=== PATIENT | male | born 1955 | race Hispanic/Latino ===

== ENCOUNTER 2018-01-16 17:30 | Inpatient (IN) | payer MEDICARE ==
[2018-01-16 18:39] LABS: BASO % 0.1 % (0.0-2.0); EOS # 0.1 K/uL (0.0-0.7); EOS % 0.8 % (0.0-4.0); HEMOGLOBIN 11.9 g/dL (12.0-18.0); LYMPH % 8.5 % (20.0-40.0); MEAN CELL VOLUME 94.7 fL (80.0-94.0); MEAN CORPUSCULAR HEMOGLOBIN 31.7 pg (27.0-31.0); MEAN CORPUSCULAR HGB CONC 33.5 g/dL (33.0-37.0); MEAN PLATELET VOLUME 9.4 fL (7.2-11.7); MONO # 1.4 K/uL (0.0-0.8); MONO % 11.5 % (0.0-10.0); NEUT # 9.7 K/uL (1.8-7.0); NEUT % 79.1 % (50.0-75.0); PLATELET COUNT 252 K/uL (130-400); RBC 3.77 Mil/uL (4.40-5.90); RED CELL DISTRIBUTION WIDTH 15.1 % (11.5-14.5); WHITE BLOOD COUNT 12.2 K/uL (4.8-10.8)
[2018-01-16 19:01] LABS: ANISOCYTOSIS SLIGHT; BANDS 4 % (0-2); LARGE PLATELETS PRESENT; LYMPHOCYTE 7 % (20-40); MONOCYTE 10 % (0-10); NEUTROPHIL 79 % (50-75); PLATELET ESTIMATE NORMAL (NORMAL); TOTAL CELLS COUNTED 100
[2018-01-16 19:07] LABS: ALB/GLOB RATIO 1.2 (1.0-2.1); ALBUMIN 3.3 g/dL (3.5-5.0); ALT/SGPT 28 U/L (21-72); AST/SGOT 21 U/L (17-59); BLOOD UREA NITROGEN 17 mg/dL (9-20); CALCIUM 9.3 mg/dl (8.6-10.4); GFR NON-AFRICAN AMERICAN > 60
--- NOTE | 2018-01-16 19:18 | C.PDOC ---
History Of Present Illness 62 year old male w/ hx of recent ex lap, "paranoia" per , poor historian presents BIB EMS after having a seizure at Dr. Avalos's office. Pt was seen yesterday in ER- and had negative w/u for abdominal pain at that time. He denies any abdominal pain at this time and states that he is here for his normal pain meds, although he is not in pain. He notes a history of drinking 2 beers a day, and denies any history of seizures. He notes that he is not sure whether or not he had a seizure today.He denies any trauma or falls. He denies taking any drugs or overdosing. No anxiety or depression. No other complaints. Time Seen by Provider: 01/16/18 19:06 Chief Complaint (Nursing): Seizure Past Medical History Vital Signs: Last Vital Signs Temp 98.2 F 01/17/18 15:00 Pulse 88 01/17/18 15:00 Resp 20 01/17/18 15:00 BP 132/74 01/17/18 15:00 Pulse Ox 97 01/17/18 15:00 Family History: States: Unknown Family Hx - Social History Hx Alcohol Use: Yes Hx Substance Use: No Review Of Systems Constitutional: Negative for: Fever Eyes: Negative for: Pain ENT: Negative for: Ear Pain Cardiovascular: Negative for: Chest Pain Respiratory: Negative for: Cough Gastrointestinal: Negative for: Nausea, Abdominal Pain Genitourinary: Negative for: Dysuria Musculoskeletal: Negative for: Neck Pain, Shoulder Pain, Back Pain, Hand Pain, Leg Pain Neurological: Negative for: Weakness, Numbness Psych: Negative for: Depression, Suicidal ideation Physical Exam - Physical Exam Appears: Unkempt Skin: Normal Color Head: Atraumatic, Normacephalic, No Tenderness, No Swelling, No Abrasion, No Laceration Ear(s): Bilateral: Normal Nose: Normal, No Septal Hematoma Tongue: Normal Appearing Neck: Normal, No Midline Cervical Tenderness Chest: Symmetrical Cardiovascular: Other (tachy, regular) Respiratory: Normal Breath Sounds Gastrointestinal/Abdominal: Normal Exam, No Tenderness Extremity: Normal ROM Neurological/Psych: Oriented x3, Normal Speech, No Cerebellar Signs (tremulous hands on my exam) ED Course And Treatment - Laboratory Results Result Diagrams: 01/17/18 02:57 01/17/18 02:57 O2 Sat by Pulse Oximetry: 97 Medical Decision Making Medical Decision Makin yr old male w/ recent exlap, poor historian, etoh use presents s/p seizure from Dr. Avalos (pain management) office. Given hx of etoh use likely etoh withdrawal seizure. Pt does not know his PMD however. Will seek labs and imaging to r/ out trauma and give ativan for further prevention of seizures. Appreciate consult w/ Dr. Avalos: was seen in office having a 5 min seizure which self resolved. Appreciate consult w/ Dr. Bailey: to admit to her service. Ct's unremarkable labs largely unremarkable Disposition - Disposition Disposition: HOSPITALIZED Disposition Time: 22:00 Condition: GOOD - Clinical Impression Clinical Impression: Seizure
--- NOTE | 2018-01-17 00:14 | CP.PCM.PN ---
Subjective - Date & Time of Evaluation Date of Evaluation: 01/16/18 Time of Evaluation: 23:00 - Subjective Subjective: Patient was seen and examined at bedside. H&P dictated #[id number] Objective - Vital Signs/Intake and Output Vital Signs (last 24 hours): Temp Pulse Resp BP Pulse Ox 98.4 F 77 20 147/82 98 01/16/18 22:49 01/16/18 22:49 01/16/18 22:49 01/16/18 22:49 01/16/18 22:49 - Labs Labs: 01/16/18 18:36 01/16/18 18:36
[2018-01-17] MEDS ORDERED: Thiamine 100 mg/ml Inj IV ONE (01:11)
[2018-01-17 03:01] LABS: BASO % 0.2 % (0.0-2.0); EOS # 0.1 K/uL (0.0-0.7); EOS % 1.2 % (0.0-4.0); HEMOGLOBIN 11.3 g/dL (12.0-18.0); LYMPH # 1.4 K/uL (1.0-4.3); LYMPH % 12.5 % (20.0-40.0); MEAN CELL VOLUME 93.8 fL (80.0-94.0); MEAN CORPUSCULAR HEMOGLOBIN 32.5 pg (27.0-31.0); MEAN CORPUSCULAR HGB CONC 34.7 g/dL (33.0-37.0); MEAN PLATELET VOLUME 9.7 fL (7.2-11.7); MONO # 1.3 K/uL (0.0-0.8); MONO % 11.4 % (0.0-10.0); NEUT # 8.7 K/uL (1.8-7.0); NEUT % 74.7 % (50.0-75.0); RBC 3.48 Mil/uL (4.40-5.90); WHITE BLOOD COUNT 11.6 K/uL (4.8-10.8)
[2018-01-17 03:16] LABS: ALBUMIN 2.9 g/dL (3.5-5.0); ALT/SGPT 29 U/L (21-72); AST/SGOT 18 U/L (17-59); BLOOD UREA NITROGEN 15 mg/dL (9-20); CALCIUM 8.6 mg/dl (8.6-10.4); GFR NON-AFRICAN AMERICAN > 60; HDL CHOLESTEROL 19 mg/dL (30-70)
[2018-01-17 03:24] LABS: LDL CHOLESTEROL 48 mg/dL (0-129)
[2018-01-17 03:27] LABS: BARBITURATES, UR NEGATIVE (NEGATIVE); BENZODIAZEPINES, UR NEGATIVE (NEGATIVE); PHENCYCLIDINE, UR NEGATIVE (NEGATIVE)
[2018-01-17 03:28] LABS: OPIATES, UR POSITIVE (NEGATIVE)
[2018-01-17 04:18] LABS: FOLATE 13.3 ng/mL
--- NOTE | 2018-01-17 06:47 | CT ---
Date of service: 01/16/2018 PROCEDURE: CT HEAD WITHOUT CONTRAST. HISTORY: seizure COMPARISON: CT dated 01/15/2018 TECHNIQUE: Axial computed tomography images were obtained through the head/brain without intravenous contrast. Radiation dose: Total exam DLP = 1094 mGy-cm. This CT exam was performed using one or more of the following dose reduction techniques: Automated exposure control, adjustment of the mA and/or kV according to patient size, and/or use of iterative reconstruction technique. FINDINGS: HEMORRHAGE: No intracranial hemorrhage. BRAIN: Moderate atrophy. Scattered focal lucencies in the subcortical and periventricular white matter suggestive for chronic microvascular ischemic change. VENTRICLES: Unremarkable. No hydrocephalus. CALVARIUM: Deformity of the nasal bones, likely chronic. PARANASAL SINUSES: Scattered mild mucosal thickening. MASTOID AIR CELLS: Unremarkable as visualized. No inflammatory changes. OTHER FINDINGS: None. IMPRESSION: No intracranial hemorrhage. Nonspecific white matter changes. Additional findings as above. If symptoms persists, consider correlation with MRI. These findings were preliminarily reported by Dr. Jenna Torre from [facility] at 9:51 p.m. 01/16/2018.
--- NOTE | 2018-01-17 08:34 | HP ---
CHIEF COMPLAINT: The patient had witnessed seizure at primary's office, and the patient was sent to the emergency room. HISTORY OF PRESENT ILLNESS: The patient is a 62-year-old male with no significant family history as per the patient, who was evaluated by ED only yesterday, who underwent exploratory laparotomy for questionable resection of the abdomen and colon done at [facility] which was done about four days ago, came into the emergency room yesterday for abdominal pain, diarrhea, and decreased p.o. intake. The patient was evaluated on 01/15/2018 in the emergency room. The patient was evaluated by Surgery, and the patient was discharged home yesterday. The patient was also evaluated by crisis team. Today, the patient was at Dr. Avalos's office where the patient had a witnessed seizure, and the patient is being admitted for further evaluation, and when I examined, the patient is not able to give detailed history, claiming he was not sure why he was in the hospital, unable to give detailed history. PAST MEDICAL HISTORY: The patient denies past medical history. PAST SURGICAL HISTORY: Recent abdominal surgery. As per the chart, it was done three days ago at [facility]. We will try to contact the patient's family for further history. FAMILY HISTORY: Unknown at this time. PERSONAL HISTORY: He claims that he is , lives with his , having one daughter. SOCIAL HISTORY: Denies smoking. Claims he drinks two beers everyday, last drink was yesterday. ALLERGIES: NO KNOWN DRUG ALLERGIES. MEDICATIONS AT HOME: Include Xanax, Percocet, and oxycodone. REVIEW OF SYSTEMS: As described in history of present illness. All other systems reviewed and was found to be negative. PHYSICAL EXAMINATION: GENERAL: A middle-aged male, lying in bed, in no acute distress. VITAL SIGNS: Blood pressure 127/75, pulse 71, respirations 20, temperature 98.4 degrees Fahrenheit, O2 sat is 98% on room air. HEENT: Pupils equal, round, reacting to light and accommodation. Extraocular muscles intact. No icterus. No pallor. No oral thrush. No pharyngeal congestion. NECK: Supple. No JVD. LUNGS: Bilateral vesicular breath sounds. No wheezing. No rhonchi. CVS: S1, S2 present and regular. ABDOMEN: Soft. Bowel sounds present. There is mild erythema at the surgical site. Uziel in place. DIRECTOR [employer]CIAL [employer]: Alert, awake, oriented x2 to x3. No focal deficits noted. EXTREMITIES: No edema. Palpable peripheral pulses. LABORATORY DATA: Labs done from the emergency room: WBC 12.2, hemoglobin 11.9, hematocrit 35.7, platelets 252. Sodium 140, potassium 3, chloride 102, bicarb 22, BUN 17, creatinine 0.6, glucose 117, calcium 9.3, magnesium 2, total bilirubin 1.3, AST 21, ALT 28, alkaline phosphatase 72, total protein 6, albumin 3.3, alcohol less than 10. Head CT and cervical CT done pending results. Head CT done yesterday shows mild cerebral and cerebellar atrophy, mild small vessel ischemic changes, left parietal scalp laceration. Abdomen and pelvis CT consistent with postoperative changes from right hemicolectomy, gas and fluid in the small bowel and colon which may be secondary to adynamic ileus, small amount of free air in the abdomen which may be related to recent surgery. Urinary bladder wall thickening with mild surrounding inflammation concerning for cystitis. Air noted within the urinary bladder which may be related to recent catheterization. ASSESSMENT: Middle-aged male with history of recent abdominal surgery with right hemicolectomy, who was seen in the emergency room yesterday for abdominal pain, and the patient was evaluated by Surgery and cleared and also seen by crisis team, who was at Dr. Avalos's office, had witnessed seizure, and the patient was brought in to the emergency room, and the patient is being admitted for further management. In the emergency department, the patient was found to be having low potassium level. 1. Witnessed seizure, questionable etiology. CT head pending. Rule out withdrawal seizures. Rule out other neurologic causes. 2. Hypokalemia. 3. Recent abdominal surgery. PLAN: The patient is being admitted to telemetry. We will do neuro checks. We will follow up the CT results. We will obtain urology evaluation. We will give Ativan as needed for withdrawal symptoms, supplement potassium. We will obtain more detailed history from the patient's in a.m. We will obtain home medication list. We will add further recommendation as his clinical course progresses. Jyothi Jeronimo MD
--- NOTE | 2018-01-17 09:18 | CT ---
CT cervical spine History: Seizure. Comparison: None available. Technique: Multiple contiguous axial images were performed through the cervical spine without the use of intravenous contrast. Subsequently, sagittal and coronal reformatted images were obtained. This CT exam was performed using one or more of the following dose reduction techniques: Automated exposure control, adjustment of the mA and/or kV according to patient size, and/or use of iterative reconstruction technique. Findings: Reversal of the normal cervical lordosis. Mild loss of height of the inferior endplate of the C6 vertebral body. Mild loss of height of the C7 vertebral body. Multilevel anterior osteophytosis at the C3-4, C5-6, C6-7, and C7-T1 levels. Multilevel posterior disc osteophyte complexes most prominent at the C2-3, C3-4, and C6-7 levels. Multilevel uncovertebral joint and facet hypertrophy. No evidence for acute displaced fracture. Productive change at the atlantodental interval. Mild atherosclerotic disease of the carotid arteries. 4 millimeter nodule versus focal scarring within the left lung apex. Impression: Negative acute. Degenerative changes. If pain persists, consider correlation with MRI. These findings were preliminarily reported by Dr. Carleen Stephenson from [facility] at 9:27 p.m. on 01/16/2018.
--- NOTE | 2018-01-17 10:03 | CP.PCM.PN ---
Subjective - Date & Time of Evaluation Date of Evaluation: 01/17/18 Time of Evaluation: 10:03 - Subjective Subjective: Progress note dictated #[id number] Objective - Vital Signs/Intake and Output Vital Signs (last 24 hours): Temp Pulse Resp BP Pulse Ox 99.3 F 109 H 20 133/81 96 01/17/18 07:00 01/17/18 07:00 01/17/18 07:00 01/17/18 07:00 01/17/18 07:00 Intake and Output: 01/17/18 01/17/18 06:59 18:59 Intake Total 20 Output Total 0 Balance 20 - Medications Medications: Current Medications Heparin Sodium (Porcine) (Heparin) 5,000 units SC Q12 XU Last Admin: 01/17/18 09:14 Dose: 5,000 units Potassium Chloride (Potassium Chloride 10 Meq/100 Ml) 10 meq in 100 mls @ 50 mls/hr IVPB ONCE ONE Stop: 01/17/18 11:59 Last Admin: 01/17/18 09:12 Dose: 50 mls/hr Multivitamins/Vitamin C 10 ml/Thiamine HCl 100 mg/ Folic Acid 1 mg/ Sodium Chloride 1,011.2 mls @ 40 mls/hr IV .Q24H ONE Stop: 01/18/18 10:29 Lorazepam (Ativan) 1 mg IVP Q6H PRN PRN Reason: Anxiety Last Admin: 01/17/18 05:08 Dose: 1 mg Thiamine HCl (Vitamin B1 Inj) 100 mg IV DAILY XU - Labs Labs: 01/17/18 02:57 01/17/18 02:57
[2018-01-17] MEDS ORDERED: Multivitamin (MVI) 10 ML, Thiamine 100 MG, Folic Acid 1 MG in Sodium Chloride 0.9% 1,00... IV ONE ×2 (10:30→15:45)
--- NOTE | 2018-01-17 21:43 | PN ---
DATE: 01/17/2018 SUBJECTIVE: The patient was seen and examined at bedside. The patient is still confused. Denies any complaints; asking when he will be discharged. He claimed that he spoke to his few minutes ago. While I was at the bedside, the patient received a phone call from taxation accountant's office, taxation accountant's name is Nick. The patient was saying to the taxation accountant that he was at [facility], but I explained to him that he is at [facility] ,and I spoke to the defective Nick. As per detective Romero, the patient's reported him to be missing since yesterday. They were trying to reach out the area where the patient would be. I tried contacting the patient's , Porsha, at the number given by detective Romero. The 's number is [phone]. I left a message, I have not heard from her yet. The patient offers no new complaints, unable to give any detailed history also. PHYSICAL EXAMINATION: GENERAL: A middle-aged male, lying in bed, in no acute distress. VITAL SIGNS: Blood pressure 133/81, pulse 109, respirations 20, temperature 99.3 degrees Fahrenheit, O2 saturations 96% on 2 L nasal cannula. HEENT: Pupils equal, round, and reacting to light and accommodation. Extraocular muscles intact. No icterus, no pallor, no oral thrush, and no pharyngeal congestion. NECK: Supple, no JVD. LUNGS: Bilateral vesicular breath sounds. No wheezing, no rhonchi. CVS: S1 and S2 present, regular. ABDOMEN: Soft, bowel sounds heard. Uziel in place. Mild erythema at the surgical site. No oozing noted. CENTRAL NERVOUS SYSTEM: Alert, awake, and oriented times 1 to 2. No focal deficits noted. EXTREMITIES: No edema. MEDICATIONS: Include heparin 5000 units subcutaneously every 12 hours, Ativan 1 mg IV every 6 hours p.r.n., banana bag 100 mL an hour, and thiamine 100 mg IV daily. LABORATORY DATA: From today, WBC 11.6, hemoglobin 11.3, hematocrit 32.7, platelets 237. Sodium 142, potassium 3, chloride 103, bicarbonate 30, BUN 15, creatinine 0.6, glucose 100, calcium 8.6, phosphorus 3.7, magnesium 1.9, total bilirubin 1.2, AST 18, ALT 29, alkaline phosphatase 56, total protein 5.6, albumin 2.9, triglycerides 68, cholesterol 83, LDL 48, HDL 19, B12 more than 1000, folate 13.3, and TSH 2.54. Urine drug screen is positive for opiates and cannabinoids. Alcohol is less than 10. Head CT, no intracranial hemorrhage, nonspecific white matter changes. ASSESSMENT AND PLAN: A middle-aged male with no known past medical history, who recently underwent a laparotomy and left hemicolectomy as documented in the records, came into the emergency department, sent from PMD's office as the patient had witnessed seizure. The patient is being admitted. The patient is still confused, unable to say these seizures are from alcohol withdrawal as we do not have any detailed history, and I left messages to the patient's who did not reach out to us yet. We will supplement potassium and keep the patient n.p.o. We will obtain Neurology and Psychiatry consults. We will try to contact the patient's again to get detailed history. We will continue with the deep venous thrombosis and gastrointestinal prophylaxis. We will add further recommendation as his clinical course progresses. Jyothi Jeronimo MD
--- NOTE | 2018-01-18 00:53 | CP.PCM.CON ---
History of Present Illness - History of Present Illness History of Present Illness: This is a 62 yr old male who has a pmh of ex laporotomy, and paranoia who had a seizure at office. There is no prior history seizure, and he has a history of drinking 2 beers daily , per his report. I was not able to speak to his to confirm the amount. The patient denies any prodrome, aura, confusion, urinary incontinence, headache. Today on exam, he is not able to give me much history about this event. ROS: as above On exam: aaox3. PERRL. Cn 2-12 normal. EOMI. motor: strength normal. sensory: normal. +2 dtr ul and ll bl. Toes downgoing. No clonus. Gait nomral no ataxia noted F/n no dysmetria. Past Patient History - Past Medical History & Family History Past Medical History?: Yes - Past Social History Smoking Status: Former Smoker - CARDIAC Hx Cardiac Disorders: No - PULMONARY Hx Respiratory Disorders: No - NEUROLOGICAL Hx Neurological Disorder: No Hx Seizures: (never had seizure) - HEENT Hx HEENT Problems: No - RENAL Hx Chronic Kidney Disease: No - ENDOCRINE/METABOLIC Hx Endocrine Disorders: No - HEMATOLOGICAL/ONCOLOGICAL Hx Blood Disorders: No - INTEGUMENTARY Hx Dermatological Problems: No - MUSCULOSKELETAL/RHEUMATOLOGICAL Hx Musculoskeletal Disorders: No Hx Falls: Yes (had seizure) - GASTROINTESTINAL Hx Gastrointestinal Disorders: No - GENITOURINARY/GYNECOLOGICAL Hx Genitourinary Disorders: No - PSYCHIATRIC Hx Substance Use: No - SURGICAL HISTORY Hx Surgeries: Yes Other/Comment: ABD SX has abd stella - ANESTHESIA Hx Anesthesia: Yes Hx Anesthesia Reactions: No Hx Malignant Hyperthermia: No Has any member of the family had a problem w/ anesthesia?: No Meds Allergies/Adverse Reactions: Allergies Allergy/AdvReac Type Severity Reaction Status Date / Time No Known Allergies Allergy Verified 01/16/18 17:41 - Medications Medications: Current Medications Heparin Sodium (Porcine) (Heparin) 5,000 units SC Q12 XU Last Admin: 01/17/18 21:23 Dose: 5,000 units Lorazepam (Ativan) 1 mg IVP Q6H PRN PRN Reason: Anxiety Last Admin: 01/17/18 05:08 Dose: 1 mg Pneumococcal Polyvalent Vaccine (Pneumovax 23 Vaccine) 0.5 ml IM .ONCE ONE Stop: 01/18/18 12:01 Thiamine HCl (Vitamin B1 Inj) 100 mg IV DAILY XU Results - Vital Signs Recent Vital Signs: Last Vital Signs Temp 98.2 F 01/17/18 15:00 Pulse 88 01/17/18 15:00 Resp 20 01/17/18 15:00 BP 132/74 01/17/18 15:00 Pulse Ox 97 01/17/18 21:23 - Labs Result Diagrams: 01/17/18 02:57 01/17/18 02:57 Labs: Laboratory Results - last 24 hr 01/17/18 01/17/18 01/17/18 02:57 02:57 02:57 WBC 11.6 H RBC 3.48 L Hgb 11.3 L Hct 32.7 L MCV 93.8 MCH 32.5 H MCHC 34.7 RDW 15.0 H Plt Count 237 MPV 9.7 Neut % (Auto) 74.7 Lymph % (Auto) 12.5 L [place] % (Auto) 11.4 H Eos % (Auto) 1.2 Baso % (Auto) 0.2 Neut # (Auto) 8.7 H Lymph # (Auto) 1.4 [place] # (Auto) 1.3 H Eos # (Auto) 0.1 Baso # (Auto) 0.0 Sodium 142 Potassium 3.0 L Chloride 103 Carbon Dioxide 30 Anion Gap 12 BUN 15 Creatinine 0.6 L Est GFR ( Amer) > 60 Est GFR (Non-Af Amer) > 60 Random Glucose 100 Calcium 8.6 Phosphorus 3.7 Magnesium 1.9 Total Bilirubin 1.2 AST 18 ALT 29 Alkaline Phosphatase 56 Total Protein 5.6 L Albumin 2.9 L Globulin 2.8 Albumin/Globulin Ratio 1.0 Triglycerides 68 D Cholesterol 83 LDL Cholesterol Direct 48 HDL Cholesterol 19 L Vitamin B12 > 1000 H Folate 13.3 TSH 3rd Generation 3.54 Urine Opiates Screen Positive H Urine Methadone Screen Negative Ur Barbiturates Screen Negative Ur Phencyclidine Scrn Negative Ur Amphetamines Screen Negative U Benzodiazepines Scrn Negative U Oth Cocaine Metabols Negative U Cannabinoids Screen Positive H Alcohol, Quantitative < 10 Assessment & Plan - Assessment and Plan (Free Text) Assessment: 62 yr old male with new onset seizure that is not explained by alcohol use. However, it may be that he is not accurate in reporting his true alcohol intake. Plan: 1. MRI brain as soon as possible. withand without jatinder. 2. EEG. Thank you DR. whipple
[2018-01-18 07:23] LABS: BASO % 0.2 % (0.0-2.0); EOS # 0.1 K/uL (0.0-0.7); EOS % 0.9 % (0.0-4.0); HEMOGLOBIN 11.3 g/dL (12.0-18.0); LYMPH # 1.4 K/uL (1.0-4.3); MEAN CELL VOLUME 93.7 fL (80.0-94.0); MEAN CORPUSCULAR HEMOGLOBIN 32.1 pg (27.0-31.0); MEAN CORPUSCULAR HGB CONC 34.3 g/dL (33.0-37.0); MEAN PLATELET VOLUME 9.3 fL (7.2-11.7); MONO # 0.9 K/uL (0.0-0.8); MONO % 7.3 % (0.0-10.0); NEUT % 80.6 % (50.0-75.0); NRBC % 0.1 % (0.0-2.0); RBC 3.51 Mil/uL (4.40-5.90); RED CELL DISTRIBUTION WIDTH 14.7 % (11.5-14.5); WHITE BLOOD COUNT 12.4 K/uL (4.8-10.8)
[2018-01-18 07:40] LABS: ALBUMIN 2.7 g/dL (3.5-5.0); ALT/SGPT 35 U/L (21-72); AST/SGOT 18 U/L (17-59); BLOOD UREA NITROGEN 16 mg/dL (9-20); CALCIUM 8.3 mg/dl (8.6-10.4); GFR NON-AFRICAN AMERICAN > 60
[2018-01-18] MEDS: Thiamine 100 mg/ml Inj IV SCH (10:07)
[2018-01-18] MEDS ORDERED: Gadodiamide 287 mg/ml 20 ml IV ONE (11:12)
--- NOTE | 2018-01-18 11:35 | PCM.PSYCH ---
Initial Psychiatric Evaluation - Initial Psychiatric Evaluation Type of Admission: Voluntary Legal Status: Capacity Chief Complaint (in patient's own words): I am doing ashley.' History of Present Illness and Precipitating Events: 62 year old male w/ hx of seizure at Dr. Avalos's office, was brought in by . Pt was seen yesterday in ER- and had negative w/u for abdominal pain at that time. He denies any abdominal pain at this time and states that he is here for his normal pain meds, although he is not in pain. He notes a history of drinking 2 beers a day, and denies any history of seizures. Today psychiatry was consulted. Pt was a poor historian. Patient reports of at times depressed mood, but denies any feelings of hopelessness and helplessness, poor sleep and poor appetite. He denies any suicidal ideation or any homicidal ideation. He denies any manic symptoms. He denies any auditory or visual hallucinations or any psychotic symptoms. Patient reports of abusing cannabis and opioids, but denies any withdrawal symptoms. Current Medications: Active Medications Generic Name Dose Route Start Last Admin Trade Name Freq PRN Reason Stop Dose Admin Heparin Sodium (Porcine) 5,000 units 01/17/18 10:00 01/18/18 10:08 Heparin SC 5,000 units Q12 XU Administration Lorazepam 1 mg 01/17/18 01:11 01/17/18 05:08 Ativan IVP 1 mg Q6H PRN Administration Anxiety Pneumococcal Polyvalent Vaccine 0.5 ml 01/18/18 12:00 Pneumovax 23 Vaccine IM 01/18/18 12:01 .ONCE ONE Thiamine HCl 100 mg 01/18/18 10:00 01/18/18 10:07 Vitamin B1 Inj IV 100 mg DAILY XU Administration Past Psychiatric History - Past Psychiatric History Previous Treatment History: None Pertinent Medical Hx (Current Medical&Sleep Prob, Allergies): Allergies Allergy/AdvReac Type Severity Reaction Status Date / Time No Known Allergies Allergy Verified 01/16/18 17:41 Alprazolam [Xanax] 2 mg PO HS 01/15/18 Oxycodone HCl [Oxycontin] 30 mg PO TID 01/15/18 Oxycodone HCl/Acetaminophen [Percocet 10-325 mg Tablet] 1 each PO BID 01/16/18 Review of Systems - Review of Systems All systems: reviewed and no additional remarkable complaints except - Psychiatric Psychiatric: Anxiety, Depression. absent: Auditory Hallucinations, Suicidal Ideation Mental Status Examination - Personal Presentation Personal Presentation: Looks stated age - Affect Affect: Constricted, Depressed - Motor Activity Motor Activity: Calm - Reliability in Providing Information Reliability in Providing Information: Fair - Speech Speech: Organized - Mood Mood: Depressed, Anxious - Formal Thought Process Formal Thought Process: No Impairment - Obsessions/Compulsions Obsessions: No Compulsions: No - Cognitive Functions Orientation: Person, Place, Situation, Time Sensorium: Alert Attention/Concentration: Attentive Abstract Thinking: [place] Estimate of Intelligence: Below average Judgement: Imparied, as evidence by: Poor judgement, Imparied, as evidence by: Lack of insight into illness - Risk Risk: Diminished functioning - Strength & Assets Inventory Strength & Assets Inventory: Family support DSM 5 DX - DSM 5 DSM 5 Diagnosis: Depressive disorder Opioid use disorder severe Cannabis use disorder severe - Recommended/Plan of Treatment Treatment Recommendations and Plan of Treatment: Depressive disorder Opioid use disorder severe Cannabis use disorder severe Pt psychiatrically stable and clear for discharge - Smoking Cessation Smoking Cessation Initiated: No
[2018-01-18] MEDS ORDERED: Pneumococcal 23-Valent Vaccine IM ONE (12:00)
--- NOTE | 2018-01-18 12:41 | CP.PCM.PN ---
Subjective - Date & Time of Evaluation Date of Evaluation: 01/18/18 Time of Evaluation: 12:41 - Subjective Subjective: Progress note dictated # [id number] Objective - Vital Signs/Intake and Output Vital Signs (last 24 hours): Temp Pulse Resp BP Pulse Ox 99 F 70 20 130/74 97 01/18/18 07:00 01/18/18 12:29 01/18/18 07:00 01/18/18 07:00 01/18/18 07:00 Intake and Output: 01/18/18 01/18/18 06:59 18:59 Intake Total 600 Balance 600 - Medications Medications: Current Medications Heparin Sodium (Porcine) (Heparin) 5,000 units SC Q12 [facility] Last Admin: 01/18/18 10:08 Dose: 5,000 units Lorazepam (Ativan) 1 mg IVP Q6H PRN PRN Reason: Anxiety Last Admin: 01/17/18 05:08 Dose: 1 mg Thiamine HCl (Vitamin B1 Inj) 100 mg IV DAILY XU Last Admin: 01/18/18 10:07 Dose: 100 mg - Labs Labs: 01/18/18 07:06 01/18/18 07:06
[2018-01-18] MEDS: Potassium Chloride 20 mEq ER Tab PO SCH ×2 (13:27→17:38)
[2018-01-18] MEDS: ceFAZolin IV 1 gm in Dextrose 1 GM/50 ML BAG IVPB SCH ×2 (14:05→21:34)
--- NOTE | 2018-01-18 14:51 | CP.PCM.CON ---
History of Present Illness - History of Present Illness History of Present Illness: Sx Consult: Dr Jose Re: wound infection Pt S&E on 6th floor. Consulted for new onset midline wound erythema. Pt had a recent ex-lap in [facility] within the past week. He is unable to tell me who did his surgery, where it was done, what was done, or why they did. Based on the fact is was exploratory and there are no laparoscopic incisions we presume it was emergent. There is a CT scan on 01/15 which shows abscess of right colon with an anastamosis in the RUQ, so again, presumably a right neil-colectomy either for perforation of the right colon or perhaps even appendicitis. Pt denies any pain , n/v, f/c at this time. He is admitted for management of seizures. Pt reports he has been having normal bowel movements throughout his post-operative period. Though pt is awake and alert and oriented x 3, he seems to now know anything about his PMH or PSH or recent events. Review of Systems - Review of Systems All systems: reviewed and no additional remarkable complaints except (as per hpi ) Past Patient History - Past Medical History & Family History Past Medical History?: Yes - Past Social History Smoking Status: Former Smoker - CARDIAC Hx Cardiac Disorders: No - PULMONARY Hx Respiratory Disorders: No - NEUROLOGICAL Hx Neurological Disorder: No Hx Seizures: (never had seizure) - HEENT Hx HEENT Problems: No - RENAL Hx Chronic Kidney Disease: No - ENDOCRINE/METABOLIC Hx Endocrine Disorders: No - HEMATOLOGICAL/ONCOLOGICAL Hx Blood Disorders: No - INTEGUMENTARY Hx Dermatological Problems: No - MUSCULOSKELETAL/RHEUMATOLOGICAL Hx Musculoskeletal Disorders: No Hx Falls: Yes (had seizure) - GASTROINTESTINAL Hx Gastrointestinal Disorders: No - GENITOURINARY/GYNECOLOGICAL Hx Genitourinary Disorders: No - PSYCHIATRIC Hx Substance Use: No - SURGICAL HISTORY Hx Surgeries: Yes Other/Comment: ABD SX has abd stella - ANESTHESIA Hx Anesthesia: Yes Hx Anesthesia Reactions: No Hx Malignant Hyperthermia: No Has any member of the family had a problem w/ anesthesia?: No Meds Allergies/Adverse Reactions: Allergies Allergy/AdvReac Type Severity Reaction Status Date / Time No Known Allergies Allergy Verified 01/16/18 17:41 - Medications Medications: Current Medications Heparin Sodium (Porcine) (Heparin) 5,000 units SC Q12 XU Last Admin: 01/18/18 10:08 Dose: 5,000 units Cefazolin Sodium/Dextrose (Ancef Iv 1 Gm Duplex) 1 gm in 50 mls @ 100 mls/hr IVPB Q8H XU PRN Reason: Protocol Last Admin: 01/18/18 14:05 Dose: 100 mls/hr Lorazepam (Ativan) 1 mg IVP Q6H PRN PRN Reason: Anxiety Last Admin: 01/17/18 05:08 Dose: 1 mg Mupirocin (Bactroban Ointment) 0 gm TOP BID [facility] Last Admin: 01/18/18 14:05 Dose: 1 applic Potassium Chloride (K-Dur 20 Meq Er Tab) 40 meq PO Q4H [facility] Stop: 01/18/18 17:01 Last Admin: 01/18/18 13:27 Dose: 40 meq Thiamine HCl (Vitamin B1 Inj) 100 mg IV DAILY [facility] Last Admin: 01/18/18 10:07 Dose: 100 mg Physical Exam - Constitutional Appears: Non-toxic, No Acute Distress - Head Exam Head Exam: NORMAL INSPECTION - Eye Exam Eye Exam: Normal appearance - ENT Exam ENT Exam: Normal Exam - Respiratory Exam Respiratory Exam: absent: Accessory Muscle Use, Respiratory Distress - Cardiovascular Exam Cardiovascular Exam: REGULAR RHYTHM. absent: Tachycardia - GI/Abdominal Exam GI & Abdominal Exam: Soft. absent: Distended, Firm, Guarding, Tenderness Additional comments: midline incision erythematous there is purulent drainage from midline incision probed and no violation of fascia noted - Extremities Exam Extremities exam: Negative for: pedal edema - Neurological Exam Neurological exam: Alert, Oriented x3 - Psychiatric Exam Psychiatric exam: Normal Affect Results - Vital Signs Recent Vital Signs: Last Vital Signs Temp 99 F 01/18/18 07:00 Pulse 70 01/18/18 12:29 Resp 20 01/18/18 07:00 BP 130/74 01/18/18 07:00 Pulse Ox 97 01/18/18 07:00 - Labs Result Diagrams: 01/18/18 07:06 01/18/18 07:06 Labs: Laboratory Results - last 24 hr 01/17/18 01/18/18 01/18/18 02:57 07:06 07:06 WBC 12.4 H RBC 3.51 L Hgb 11.3 L Hct 32.9 L MCV 93.7 MCH 32.1 H MCHC 34.3 RDW 14.7 H Plt Count 289 MPV 9.3 Neut % (Auto) 80.6 H Lymph % (Auto) 11.0 L [place] % (Auto) 7.3 Eos % (Auto) 0.9 Baso % (Auto) 0.2 Neut # (Auto) 10.0 H Lymph # (Auto) 1.4 [place] # (Auto) 0.9 H Eos # (Auto) 0.1 Baso # (Auto) 0.0 Sodium 141 Potassium 3.4 L Chloride 105 Carbon Dioxide 22 Anion Gap 18 BUN 16 Creatinine 0.6 L Est GFR ( Amer) > 60 Est GFR (Non-Af Amer) > 60 Random Glucose 67 L Hemoglobin A1c 5.1 Calcium 8.3 L Total Bilirubin 0.9 AST 18 ALT 35 Alkaline Phosphatase 54 Total Protein 5.4 L Albumin 2.7 L Globulin 2.6 Albumin/Globulin Ratio 1.0 Assessment & Plan - Assessment and Plan (Free Text) Assessment: 62M with possible post-op wound infection Plan: continue empiric abx wound culture collected and sent off will repeat CT scan - this time with PO and IV contrast to eval for abscess vs anastomotic leak d/w Dr Jose and Dr Kandace Barajas, PGY4
[2018-01-18] MEDS ORDERED: Iohexol 240 (50 ml) PO ONE ×2 (16:45→17:30)
[2018-01-18] MEDS ORDERED: Iodixanol 320 MG/ML 100 ML BOTTLE IV ONE (18:06)
--- NOTE | 2018-01-19 01:40 | PN ---
DATE: 01/18/2018 SUBJECTIVE: The patient was seen and examined at bedside. The patient offers no new complaints. Appears more alert and oriented. is at bedside. Denies any new complaints. PHYSICAL EXAMINATION: GENERAL: Middle-aged male lying in bed in no acute distress. VITAL SIGNS: Blood pressure 143/81, pulse 79, respirations 20, temperature 98 degrees Fahrenheit, O2 saturations 97% on room air. HEENT: Pupils are equal, round and reacting to light and accommodation. Extraocular muscles are intact. No icterus. No pallor. No oral thrush. No pharyngeal congestion. NECK: Supple. No JVD. LUNGS: Bilateral vesicular breath sounds. No wheezing. No rhonchi. CVS: S1 and S2 present and regular. ABDOMEN: Soft. Bowel sounds are present. [place] in place with mucopurulent discharge coming out of the suture site. Erythema present. Bowel sounds heard. DRY END OPERATOR: Alert, awake, oriented x2. No focal deficits noted. EXTREMITIES: No edema. Palpable peripheral pulses. MEDICATIONS: Include Ancef 1 gm IV every 8 hours, heparin 5000 units subcu every 12 hours, Ativan 1 mg IV push every 6 p.r.n., Bactroban cream, thiamine 100 mg IV daily. LABORATORY DATA: Labs done today. WBC 12.4, hemoglobin 11.3, hematocrit 32.9, platelets 289. Sodium 141, potassium 3.4, chloride 105, bicarbonate 22, BUN 16, creatinine 0.6, glucose 67, hemoglobin A1c 5.1, calcium 8.3, total bilirubin 0.9, AST 18, ALT 35, alkaline phosphatase 54, total protein 5.4, albumin 2.7. Abdomen and pelvis CT done this morning pending results. ASSESSMENT AND PLAN: Middle-aged male with history of chronic back pain who recently underwent exploratory laparotomy and right hemicolectomy for acute abdomen done at [facility] as per patient's who is at bedside. He underwent surgery this past Friday on 01/13/2018 and two day's postoperatively, the patient signed out against medical advice from [facility] on Friday01/15/2018. The patient returned to [facility] on 01/16/2018. The patient was evaluated in the emergency room, evaluated by surgery in the crisis unit. The patient was cleared for discharge. On 01/17/2018, the patient was at Dr. Avalos's office for routine visit to get pain management medications, where the patient was found to have witnessed seizure and the patient was transferred to the [facility] [place] ED and the patient is being admitted. The patient appears still confused, but oriented to person, place and time. Seizure activity, unclear secondary to alcohol withdrawal seizures, hypokalemia, wound infection, rule out anastomotic leak. Ancef is being added. Discussed with surgical scheduler. CT scan was done awaiting for results. CT scan done recently on 01/15/2018 consistent with postoperative changes from right hemicolectomy, small amount of free air in the abdomen, which may be related to recent surgery, gas and fluid in the small bowel and colon may be secondary to an adynamic ileus. Discussed with the patient's who is at bedside. Neurology consult appreciated for MRI of the brain and EEG. Psychiatric evaluation pending. Follow up with wound culture. Supplement potassium. We will add further recommendation as his clinical course progresses. Jyothi Jeronimo MD
[2018-01-19] MEDS: ceFAZolin IV 1 gm in Dextrose 1 GM/50 ML BAG IVPB SCH ×2 (05:56→13:30)
--- NOTE | 2018-01-19 07:13 | CP.PCM.PN ---
Subjective - Date & Time of Evaluation Date of Evaluation: 01/19/18 Time of Evaluation: 07:11 - Subjective Subjective: Mr. Gallegos was seen and examined at the bedside. He is alert, oriented x 3 , denies any dizziness, blurred vision, diplopia, headache. He is able to follow all commands with no weakness noted. He is aware of his schedule test today which he further states of having screws in his lower back from a back surgery ten years ago. There was no untoward events overnight. Objective - Vital Signs/Intake and Output Vital Signs (last 24 hours): Temp Pulse Resp BP Pulse Ox 99.7 F H 86 20 134/69 97 01/18/18 23:05 01/19/18 03:51 01/18/18 23:05 01/18/18 23:05 01/18/18 23:05 Intake and Output: 01/19/18 01/19/18 06:59 18:59 Intake Total 250 Balance 250 - Medications Medications: Current Medications Heparin Sodium (Porcine) (Heparin) 5,000 units SC Q12 [facility] Last Admin: 01/18/18 21:33 Dose: 5,000 units Cefazolin Sodium/Dextrose (Ancef Iv 1 Gm Duplex) 1 gm in 50 mls @ 100 mls/hr IVPB Q8H XU PRN Reason: Protocol Last Admin: 01/19/18 05:56 Dose: 100 mls/hr Lorazepam (Ativan) 1 mg IVP Q6H PRN PRN Reason: Anxiety Last Admin: 01/17/18 05:08 Dose: 1 mg Mupirocin (Bactroban Ointment) 0 gm TOP BID [facility] Last Admin: 01/18/18 17:39 Dose: 1 applic Thiamine HCl (Vitamin B1 Inj) 100 mg IV DAILY [facility] Last Admin: 01/18/18 10:07 Dose: 100 mg - Labs Labs: 01/18/18 07:06 01/18/18 07:06 - Constitutional Appears: No Acute Distress - Head Exam Head Exam: NORMAL INSPECTION - Eye Exam Pupil Exam: PERRL - Neurological Exam Neurological Exam: Alert, Awake, Oriented x3 Neuro motor strength exam: Left Upper Extremity: 5, Right Upper Extremity: 5, Left Lower Extremity: 5, Right Lower Extremity: 5 Additional comments: no neuro deficits noted Assessment and Plan (1) Seizure Assessment & Plan: Continue all current medical regimen. Pending MRI of the brain and EEG. Recommend to treat any electrolyte abnormalities, CIWA protocol, hydration. Status: Acute
[2018-01-19] MEDS: Thiamine 100 mg/ml Inj IV SCH (09:33)
--- NOTE | 2018-01-19 10:14 | CP.PCM.PN ---
Subjective - Date & Time of Evaluation Date of Evaluation: 01/19/18 Time of Evaluation: 06:20 - Subjective Subjective: Patient seen and examined. No acute events over night. Some purulent drainage expressed from abdominal incision. Area packed with iodoform packing. Objective - Vital Signs/Intake and Output Vital Signs (last 24 hours): Temp Pulse Resp BP Pulse Ox 100.3 F H 69 18 135/83 98 01/19/18 07:10 01/19/18 07:50 01/19/18 07:10 01/19/18 07:10 01/19/18 07:10 Intake and Output: 01/19/18 01/19/18 06:59 18:59 Intake Total 250 Balance 250 - Medications Medications: Current Medications Heparin Sodium (Porcine) (Heparin) 5,000 units SC Q12 [facility] Last Admin: 01/19/18 09:34 Dose: 5,000 units Cefazolin Sodium/Dextrose (Ancef Iv 1 Gm Duplex) 1 gm in 50 mls @ 100 mls/hr IVPB Q8H XU PRN Reason: Protocol Last Admin: 01/19/18 05:56 Dose: 100 mls/hr Lorazepam (Ativan) 1 mg IVP Q6H PRN PRN Reason: Anxiety Last Admin: 01/17/18 05:08 Dose: 1 mg Mupirocin (Bactroban Ointment) 0 gm TOP BID [facility] Last Admin: 01/19/18 09:34 Dose: 1 applic Thiamine HCl (Vitamin B1 Inj) 100 mg IV DAILY [facility] Last Admin: 01/19/18 09:33 Dose: 100 mg - Labs Labs: 01/18/18 07:06 01/18/18 07:06 - Constitutional Appears: No Acute Distress - Head Exam Head Exam: NORMOCEPHALIC - Eye Exam Eye Exam: EOMI, Normal appearance - ENT Exam ENT Exam: Mucous Membranes Moist - Respiratory Exam Respiratory Exam: NORMAL BREATHING PATTERN - Cardiovascular Exam Cardiovascular Exam: +S1, +S2 - Neurological Exam Neurological Exam: Alert, Awake, Oriented x3 - Psychiatric Exam Psychiatric exam: Normal Mood - Skin Skin Exam: Dry, Erythema, Intact, Warm Additional comments: eryhtema along abdominal incision site packed with iodoform gauze. Assessment and Plan - Assessment and Plan (Free Text) Assessment: 62M with abdominal surgical site wound infection s/p ex-lap Plan: -Local wound care -Change packing BID -C/w ABx -Encourage ambulation -F/u Wound Cx -Resume regular diet Further recs per Dr. Damon Bull PGY3
--- NOTE | 2018-01-19 11:54 | MRI ---
Date of service: 01/19/2018 PROCEDURE: MRI BRAIN WITH AND WITHOUT CONTRAST HISTORY: Seizure COMPARISON: Comparison made with CT scan MRI of the brain dated 01/16/2018 and 06/09/2014 respectively. TECHNIQUE: Multiplanar, multisequence MR images of the brain were obtained with and without intravenous contrast enhancement. FINDINGS: HEMORRHAGE: No acute parenchymal, subarachnoid or extra-axial hemorrhage. No evidence of hemosiderin deposition identified on gradient echo weighted sequence. DWI: No evidence of an acute or early subacute infarction. BRAIN PARENCHYMA: Minor chronic periventricular white matter ischemic changes extending peripherally into the deep and to a lesser degree subcortical white matter both cerebral hemispheres. Moderate generalized volume loss. ENHANCEMENT: No enhancing parenchymal nor extra-axial masses or collections. No evidence of abnormal meningeal enhancement. VENTRICLES: No obstructive hydrocephalus. . Persistent asymmetry of the lateral ventricles are left-sided which it is slightly larger than the right felt to represent an anatomic variation. CRANIUM: Unremarkable. ORBITS: Orbits and contents grossly unremarkable. PARANASAL SINUSES/MASTOIDS: Mucoperiosteal inflammatory changes again seen in both maxillary antra right greater than left and to a lesser degree ethmoid and frontal sinuses. . VASCULAR SYSTEM: Visualized major vascular flow voids at skull base patent. . OTHER FINDINGS: None . IMPRESSION: No evidence of acute intracranial hemorrhage or infarction. Mild chronic white matter ischemic changes. Moderate generalized volume loss. No abnormal intracranial enhancement.
--- NOTE | 2018-01-19 13:45 | CT ---
Date of service: 01/18/2018 PROCEDURE: CT Abdomen and Pelvis with contrast HISTORY: Rule out intra-peritoneal abscess vs ECF COMPARISON: Comparison made with prior CT scan abdomen pelvis dated 01/15/2018. TECHNIQUE: Contrast dose: 100 cc Visipaque 320 Radiation dose: Total exam DLP = 348.84 mGy-cm. This CT exam was performed using one or more of the following dose reduction techniques: Automated exposure control, adjustment of the mA and/or kV according to patient size, and/or use of iterative reconstruction technique. FINDINGS: LOWER THORAX: There tiny bilateral effusions associate with minor posterior compressive type atelectasis. Small localized area of localized atelectasis seen anterior and slightly superiorly located right lower lobe. . Heart size within range of normal. There is a small hiatal hernia. There also appears to be a tiny amount of contrast material within the distal esophagus possibly due to reflux. The the the LIVER: Liver is enlarged measuring over 21 cm in CC dimension. Mild fatty hepatic infiltration. Portal and splenic veins are opacified. GALLBLADDER AND BILE DUCTS: The gallbladder appears contracted with mild enhanced thick-walled appearance. Fluid in the right upper and mid abdomen likely related that to recent postoperative surgical changes involving right hemicolectomy also appear to extend into the gallbladder fossa. No definitive evidence of intraluminal gallbladder calculi. PANCREAS: There is bulky edematous appearance of the pancreatic head with adjacent fluid posterior to the pancreatic head extending into Ford's pouch. These findings could be secondary to recent manipulation related to right hemicolectomy with secondary acute pancreatitis. Correlation with serum amylase/lipase recommended. SPLEEN: Spleen is unremarkable. ADRENALS: No adrenal lesions. KIDNEYS AND URETERS: Kidneys demonstrate symmetric nephrograms. No evidence of nephrolithiasis or hydronephrosis. The VASCULATURE: Unremarkable. No aortic aneurysm. BOWEL: The stomach is distended with oral contrast material air and some food debris. The right hemicolectomy with anastomosis right upper quadrant of the abdomen. There is apparent wall thickening of the bowel at the level of the anastomosis apparent however no complete obstruction as oral contrast material opacifies the transverse and descending colon with the dilute contrast admixed with stool in the sigmoid colon rectum. . There is also wall thickening of duodenum and proximal jejunum the latter of which appears to have been mobilized and extends sharply to the right at abdomen as it extends beneath the the SMA of. Findings may represent localized sequela of postsurgical manipulation as well. . No obvious contrast extravasation/leak seen. APPENDIX: Right hemicolectomy. PERITONEUM: There is a moderate amount of free fluid seen within the intraperitoneal cavity the bulk of which is located in the right upper quadrant of the abdomen extending inferiorly along the right lateral abdomen into the pelvis. T Multiple skin closure stella seen along the left parasagittal and mid abdomen/pelvis with what appears represent infiltration and probably a small amount of fluid along the incision site. LYMPH NODES: Unremarkable. No enlarged lymph nodes. BLADDER: Urinary bladder is incompletely distended which presumably in part accounts for thick-walled appearance. Muscular hypertrophy may contribute however given the small amount of intraluminal urinary bladder air or, the possibility of infection with gas-forming organism must be considered. Correlation with urinalysis. Has there been recent instrumentation such as Da Silva catheter insertion removal? . REPRODUCTIVE: Mildly enlarged prostate gland. BONES: Postoperative changes of discectomy fusion and at anterior as well as posterior fixation at L5-S1 level present unchanged from prior exam. Again noted multilevel degenerative spondylosis of the lumbar and to a lesser degree lower thoracic spine OTHER FINDINGS: None. IMPRESSION: There has been right hemicolectomy with an anastomosis some at the level of the hepatic flexure region. There is marked wall thickening of the bowel at the level of the anastomosis however no evidence of complete obstruction with oral contrast material extending into the colon distal to the anastomosis. No definitive evidence of contrast extravasation. There is a moderate amount of intraperitoneal free fluid the the bulk which is located in the right upper quadrant of the abdomen extending laterally into the inferiorly into the pelvis. Small amount of perihepatic ascites. Fluid extends into the gallbladder fossa as well. Gallbladder appears incompletely distended which presumably accounts for the thickened appearance of the gallbladder wall and ascites may contribute. No definitive evidence of intraluminal gallbladder calculi. . The pancreatic head is enlarged with body/edematous appearance on with fluid seen adjacent to the posterior margin of the pancreatic head. Findings may represent iatrogenic acute pancreatitis rib from recent surgical manipulation. Clinical correlation with serum amylase and lipase. There is also wall thickening of the duodenum and proximal jejunum which may also be secondary to recent surgical manipulation. Clinic correlation recommended. Urinary bladder wall is thickened with a small amount of air in the lumen of the bladder. Findings may in part be due to incomplete distention and muscular hypertrophy however given the intraluminal air, the possibility of infection with gas-forming organism must be considered. Air could alternatively be related to recent on manipulation. Has there been recent of placement and/or removal of a Da Silva catheter? Tiny bilateral effusions and minor bibasilar atelectasis.
--- NOTE | 2018-01-19 13:59 | CP.PCM.PN ---
Subjective - Date & Time of Evaluation Date of Evaluation: 01/19/18 Time of Evaluation: 13:59 - Subjective Subjective: Progress note dictated #[id number] Objective - Vital Signs/Intake and Output Vital Signs (last 24 hours): Temp Pulse Resp BP Pulse Ox 100.3 F H 75 18 135/83 98 01/19/18 07:10 01/19/18 12:05 01/19/18 07:10 01/19/18 07:10 01/19/18 07:10 Intake and Output: 01/19/18 01/19/18 06:59 18:59 Intake Total 250 Balance 250 - Medications Medications: Current Medications Heparin Sodium (Porcine) (Heparin) 5,000 units SC Q12 [facility] Last Admin: 01/19/18 09:34 Dose: 5,000 units Potassium Chloride (Potassium Chloride 20 Meq/100 Ml) 20 meq in 100 mls @ 50 mls/hr IVPB ONCE ONE Stop: 01/19/18 15:54 Lorazepam (Ativan) 1 mg IVP Q6H PRN PRN Reason: Anxiety Last Admin: 01/17/18 05:08 Dose: 1 mg Mupirocin (Bactroban Ointment) 0 gm TOP BID [facility] Last Admin: 01/19/18 09:34 Dose: 1 applic Thiamine HCl (Vitamin B1 Inj) 100 mg IV DAILY [facility] Last Admin: 01/19/18 09:33 Dose: 100 mg - Labs Labs: 01/18/18 07:06 01/18/18 07:06
--- NOTE | 2018-01-19 19:35 | PCM.RRT ---
JOB PRESS OPERATOR Nurses Assessment - Situation Date: 01/19/18 Time JOB PRESS OPERATOR was called: 19:23 JOB PRESS OPERATOR Responder Arrival Time:: 19:24 JOB PRESS OPERATOR Location:: Med/Surg Room Number: 656b JOB PRESS OPERATOR Reason for Call: Tachycardia JOB PRESS OPERATOR Called By: RN - IV IV Inserted during JOB PRESS OPERATOR?: No - Respiratory JOB PRESS OPERATOR Delivery Method: Room Air Received Nebulizer Treatments: No Was the Patient Ventilated with Bag/Mask 100% O2?: No Secretions Suctioned?: No Was the Patient Intubated?: No Was the Patient Placed on a Ventilator?: No - Medication Medications Administered During JOB PRESS OPERATOR: N/A - Diagnostic Test Ordered EKG: Yes Chest X-Ray: No CT Scan: No - Stat Labs Ordered JOB PRESS OPERATOR Stat Labs Ordered: CBC, BMP, TROPONIN CPR started during JOB PRESS OPERATOR?: No - Vital Signs Vital Signs: Rapid Response Vital Sign Blood Pressure 145/70 Pulse Rate 83 Respiratory Rate 18 Temperature 99.9 F Oxygen Saturation 97 - Vital Signs at end of JOB PRESS OPERATOR Vital Signs at end of JOB PRESS OPERATOR: 17:34 - Recommendations Notifications: Attending Physician, Consultations I.Reason for JOB PRESS OPERATOR - A) Acute Change in Patient: (Select all that apply): Acute change in heart rate less than 50 or greater than 120. absent: Chest Pain Subjective: Rapid Response Note Rapid response called at 7:23 for a 62 year old male with a past medical history of seizures, hypokalemia and s/p ex lap. On arrival patient was asymptomatic. He denied any chest pain or difficulty breathing. He did admit to occasional palpitations. BMP, CBC, Mg, and BREE were ordered. EKG was also ordered. Nurse asked to call attending physician for possible cardiology consult. - Neurological Status (Select all that apply): Alert, Responsive, Oriented, Follows Commands - Respiratory Oxygen Delivery Method: Room Air - Constitutional Appears: Well, Non-toxic - Head Head Exam: ATRAUMATIC, NORMAL INSPECTION - Cardiovascular Exam Cardiovascular Exam: Tachycardia, +S1, +S2. absent: Irregular Rhythm, Murmur - Neurological Exam Neurological Exam: Alert, Awake, Oriented x3 Plan - Assessment of Findings&Treatment Plan Rapid response called at 7:23 for a 62 year old male with a past medical history of seizures, hypokalemia and s/p ex lap. Plan: CBC BMP Mg EKG BREE Will correct any electrolyte abnormality. Ask nurse to notify Attending for possible cardiology consult. Will Monitor.
[2018-01-19 20:13] LABS: BASO # 0.1 K/uL (0.0-0.2); BASO % 0.4 % (0.0-2.0); EOS % 0.2 % (0.0-4.0); LYMPH # 1.7 K/uL (1.0-4.3); LYMPH % 11.9 % (20.0-40.0); MEAN CELL VOLUME 94.9 fL (80.0-94.0); MEAN CORPUSCULAR HEMOGLOBIN 31.4 pg (27.0-31.0); MEAN PLATELET VOLUME 9.1 fL (7.2-11.7); MONO # 0.7 K/uL (0.0-0.8); MONO % 4.7 % (0.0-10.0); NEUT % 82.8 % (50.0-75.0); RBC 4.68 Mil/uL (4.40-5.90); WHITE BLOOD COUNT 14.5 K/uL (4.8-10.8)
[2018-01-19 20:18] LABS: BLOOD UREA NITROGEN 5 mg/dL (9-20); CALCIUM 8.7 mg/dl (8.6-10.4); CK-MB < 0.22 ng/mL (0.0-3.38); GFR NON-AFRICAN AMERICAN > 60
[2018-01-19 20:31] LABS: HEMOGLOBIN 14.7 g/dL (12.0-18.0)
--- NOTE | 2018-01-20 06:50 | PN ---
DATE: 01/19/2018 SUBJECTIVE: The patient was seen and examined at bedside. The patient offers no new complaints. Denies any abdominal pain. Denies any nausea or vomiting. PHYSICAL EXAMINATION: GENERAL: Elderly male, lying in bed, in no acute distress. VITAL SIGNS: Blood pressure 125/76, pulse 82, respirations 20, temperature 98.9 degrees Fahrenheit, and O2 saturations 97% on room air. HEENT: Pupils are equal, round, and reacting to light and accommodation. Extraocular muscles are intact. No icterus. No pallor. No oral thrush. No pharyngeal congestion. NECK: Supple. No JVD. LUNGS: Bilateral vesicular breath sounds. No wheezing. No rhonchi. CVS: S1 and S2 present and regular. ABDOMEN: Soft. Uziel in place. Redness present. Oozing present from the sutures. It was packed. 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 No deficits noted. EXTREMITIES: No edema. Palpable peripheral pulses. MEDICATIONS: Include Rocephin 1 g daily, subcutaneous heparin, Ativan 1 mg IV push every 6 hours p.r.n., Bactroban cream, and thiamine 100 mg IV daily. LABORATORY DATA: Labs from today, WBC 12.4, hemoglobin 11.3, hematocrit 32.9, and platelets 289. Abdomen and pelvis CT, no clear extravasation of the contrast indicating leaking from the anastomosis. MRI of the brain, no evidence of any intracranial hemorrhage, mild chronic white matter changes. ASSESSMENT AND PLAN: Middle aged male with chronic low back pain, underwent exploratory laparotomy and right hemicolectomy recently at [facility] [place], admitted for witnessed seizures, altered mental status. There is wound infection with cellulitic changes and purulent discharge, wound culture positive for gram negative rods. Antibiotic switched from Ancef to Rocephin. Infectious Disease consult requested. Follow up with surgical team. Continue with other supportive care. Follow up with Psychiatry and Neurology. We will add further recommendations as his clinical course progresses. Jyothi Jeronimo MD
--- NOTE | 2018-01-20 10:26 | CP.PCM.PN ---
Subjective - Date & Time of Evaluation Date of Evaluation: 01/20/18 Time of Evaluation: 10:26 - Subjective Subjective: Progress note dictated #[id number] Objective - Vital Signs/Intake and Output Vital Signs (last 24 hours): Temp Pulse Resp BP Pulse Ox 98.6 F 79 20 111/68 100 01/20/18 08:29 01/20/18 08:29 01/20/18 08:29 01/20/18 08:29 01/20/18 08:29 Intake and Output: 01/20/18 01/20/18 06:59 18:59 Intake Total 420 Balance 420 - Medications Medications: Current Medications Diltiazem HCl (Cardizem) 30 mg PO Q6H XU Last Admin: 01/20/18 08:23 Dose: 30 mg Heparin Sodium (Porcine) (Heparin) 5,000 units SC Q12 XU Last Admin: 01/19/18 21:23 Dose: 5,000 units Ceftriaxone Sodium 1 gm/ (Sodium Chloride) 100 mls @ 100 mls/hr IVPB Q24H XU PRN Reason: Protocol Last Admin: 01/19/18 17:13 Dose: 100 mls/hr Lorazepam (Ativan) 1 mg IVP Q6H PRN PRN Reason: Anxiety Last Admin: 01/17/18 05:08 Dose: 1 mg Thiamine HCl (Vitamin B1 Inj) 100 mg IV DAILY XU Last Admin: 01/19/18 09:33 Dose: 100 mg - Labs Labs: 01/19/18 20:07 01/19/18 19:44
--- NOTE | 2018-01-20 11:27 | RAD ---
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 FINDINGS: LUNGS: Mild basilar atelectasis. Please note that chest x-ray has limited sensitivity for the detection of pulmonary masses. PLEURA: No significant pleural effusion identified. No definite pneumothorax . CARDIOVASCULAR: Heart size appears within normal limits. OSSEOUS STRUCTURES: Degenerative changes. VISUALIZED UPPER ABDOMEN: Unremarkable. OTHER FINDINGS: None. IMPRESSION: Mild basilar atelectasis.
[2018-01-20] MEDS: Thiamine 100 mg/ml Inj IV SCH (11:59)
--- NOTE | 2018-01-20 12:20 | CP.PCM.CON ---
History of Present Illness - History of Present Illness History of Present Illness: This is a 62 yr old male who has a pmh of ex laporotomy, and paranoia who had a seizure at office. There is no prior history seizure, and he has a history of drinking 2 beers daily , per his report. I was not able to speak to his to confirm the amount. The patient denies any prodrome, aura, confusion , urinary incontinence, headache. Today on exam, he is not able to give me much history about this event. ROS: as above On exam: aaox3. PERRL. Cn 2-12 normal. EOMI. motor: strength normal. sensory: normal. +2 dtr ul and ll bl. Toes downgoing. No clonus. Gait nomral no ataxia noted F/n no dysmetria. Past Patient History - Past Medical History & Family History Past Medical History?: Yes - Past Social History Smoking Status: Former Smoker - CARDIAC Hx Cardiac Disorders: No - PULMONARY Hx Respiratory Disorders: No - NEUROLOGICAL Hx Neurological Disorder: No Hx Seizures: (never had seizure) - HEENT Hx HEENT Problems: No - RENAL Hx Chronic Kidney Disease: No - ENDOCRINE/METABOLIC Hx Endocrine Disorders: No - HEMATOLOGICAL/ONCOLOGICAL Hx Blood Disorders: No - INTEGUMENTARY Hx Dermatological Problems: No - MUSCULOSKELETAL/RHEUMATOLOGICAL Hx Musculoskeletal Disorders: No Hx Falls: Yes (had seizure) - GASTROINTESTINAL Hx Gastrointestinal Disorders: No - GENITOURINARY/GYNECOLOGICAL Hx Genitourinary Disorders: No - PSYCHIATRIC Hx Substance Use: No - SURGICAL HISTORY Hx Surgeries: Yes Other/Comment: ABD SX has abd stella - ANESTHESIA Hx Anesthesia: Yes Hx Anesthesia Reactions: No Hx Malignant Hyperthermia: No Has any member of the family had a problem w/ anesthesia?: No Meds Allergies/Adverse Reactions: Allergies Allergy/AdvReac Type Severity Reaction Status Date / Time No Known Allergies Allergy Verified 01/16/18 17:41 - Medications Medications: Current Medications Diltiazem HCl (Cardizem) 30 mg PO Q6H [facility] Last Admin: 01/20/18 08:23 Dose: 30 mg Heparin Sodium (Porcine) (Heparin) 5,000 units SC Q12 XU Last Admin: 01/20/18 10:56 Dose: 5,000 units Ceftriaxone Sodium 1 gm/ (Sodium Chloride) 100 mls @ 100 mls/hr IVPB Q24H [facility] PRN Reason: Protocol Last Admin: 01/19/18 17:13 Dose: 100 mls/hr Lorazepam (Ativan) 1 mg IVP Q6H PRN PRN Reason: Anxiety Last Admin: 01/17/18 05:08 Dose: 1 mg Thiamine HCl (Vitamin B1 Inj) 100 mg IV DAILY XU Last Admin: 01/20/18 11:59 Dose: 100 mg Results - Vital Signs Recent Vital Signs: Last Vital Signs Temp 98.6 F 01/20/18 08:29 Pulse 79 01/20/18 09:00 Resp 20 01/20/18 08:29 BP 111/68 01/20/18 08:29 Pulse Ox 100 01/20/18 08:29 - Labs Result Diagrams: 01/19/18 20:07 01/19/18 19:44 Labs: Laboratory Results - last 24 hr 01/19/18 01/19/18 01/20/18 19:44 20:07 02:41 WBC 14.5 H RBC 4.68 Hgb 14.7 D Hct 44.4 MCV 94.9 H MCH 31.4 H MCHC 33.0 RDW 15.0 H Plt Count 422 H D MPV 9.1 Neut % (Auto) 82.8 H Lymph % (Auto) 11.9 L [place] % (Auto) 4.7 Eos % (Auto) 0.2 Baso % (Auto) 0.4 Neut # (Auto) 12.0 H Lymph # (Auto) 1.7 [place] # (Auto) 0.7 Eos # (Auto) 0.0 Baso # (Auto) 0.1 Sodium 136 Potassium 3.8 Chloride 101 Carbon Dioxide 24 Anion Gap 15 BUN 5 L Creatinine 0.7 L Est GFR ( Amer) > 60 Est GFR (Non-Af Amer) > 60 Random Glucose 122 H Calcium 8.7 Magnesium 1.8 Total Creatine Kinase 27 L CK-MB (Mass) < 0.22 Troponin I < 0.0120 < 0.0120
[2018-01-20] MEDS: Vancomycin 1 gm/NS 200 ml 1 GM/200 ML BAG IVPB SCH (14:03)
--- NOTE | 2018-01-20 20:08 | CARD ---
APPROVED REPORT Date of service: 01/20/2018 EKG Measurement Heart [id number] <Conclusion> Normal sinus rhythm Normal ECG
--- NOTE | 2018-01-20 20:08 | CP.PCM.CON ---
History of Present Illness - History of Present Illness History of Present Illness: I was asked to see patient for afib. Patient is a 62 year old male with HTN who presnets with a seizure. The patient drinks alcohol regularly, and was admitted due to a wtinessed seizure. The alcohol level was elevated. he is flet to be in withdrawal. He had a preiod of rapid heart rate, revealing afib. Review of Systems - Constitutional Constitutional: absent: As Per HPI, Anorexia, Chills, Daytime Sleepiness, Excessive Sweating, Fatigue, Fever, Frequent Falls, Headache, Increased Appetite , Lethargy, Malaise, Night Sweats, Snoring, Sleep Apnea, Weight Gain, Weight Loss, Weakness, Other - EENT Eyes: absent: As Per HPI, Blind Spots, Blurred Vision, Change in Vision, Decreased Night Vision, Diplopia, Discharge, Dry Eye, Exophthalmos, Floaters, Irritation, Itchy Eyes, Loss of Peripheral Vision, Pain, Photophobia, Requires Corrective Lenses, Sees Flashes, Spots in Vision, Tunnel Vision, Other Visual Disturbances, Loss of Vision, Other Ears: absent: As Per HPI, Decreased Hearing, Ear Discharge, Ear Pain, Tinnitus, Abnormal Hearing, Disequilibrium, Dizziness, Other Nose/Mouth/Throat: absent: As Per HPI, Epistaxis, Nasal Congestion, Nasal Discharge, Nasal Obstruction, Nasal Trauma, Nose Pain, Post Nasal Drip, Sinus Pain, Sinus Pressure, Bleeding Gums, Change in Voice, Dental Pain, Dry Mouth, Dysphagia, Halitosis, Hoarsness, Lip Swelling, Mouth Lesions, Mouth Pain, Odynophagia, Sore Throat, Throat Swelling, Tongue Swelling, Facial Pain, Neck Pain, Neck Mass, Other - Cardiovascular Cardiovascular: Palpitations - Respiratory Respiratory: absent: As Per HPI, Cough, Dyspnea, Hemoptysis, Dyspnea on Exertion , Wheezing, Snoring, Stridor, Pain on Inspiration, Chest Congestion, Excessive Mucous Production, Change in Mucous Color, Pain with Coughing, Other - Gastrointestinal Gastrointestinal: absent: As Per HPI, Abdominal Pain, Belching, Bloating, Change in Bowel Habits, Change in Stool Character, Coffee Ground Emesis, Constipation, Cramping, Diarrhea, Dyspepsia, Dysphagia, Early Satiety, Excessive Flatus, Fecal Incontinence, Heartburn, Hematemesis, Hematochezia, Loose Stools, Melena, Nausea, Odynophagia, Temesmus, Vomiting, Other - Genitourinary Genitourinary: absent: As Per HPI, Change in Urinary Stream, Difficulty Urinating, Dysuria, Flank Pain, Hematuria, Pyuria, Nocturia, Urinary Incontinence, Urinary Frequency, Urinary Hesitance, Urinary Urgency, Voiding Freq/Small Amts, Freq UTI, Hx Renal/Bladder Calculi, Hx /Renal Surgery, Bladder Distension, Other - Musculoskeletal Musculoskeletal: absent: As Per HPI, Abnormal Gait, Arthralgias, Atrophy, Back Pain, Deformity, Joint Swelling, Limited Range of Motion, Loss of Height, Muscle Cramps, Muscle Weakness, Myalgias, Neck Pain, Numbness, Radiating Pain into Limb, Stiffness, Tingling, Other - Integumentary Integumentary: absent: As Per HPI, Acne, Alopecia, Bleeding Lesions, Change in Hair, Change in Nails, Change in Pigmentation, Changing Lesions, Dry Skin, Erythema, Furuncle, Hirsutism, Lesions, New Lesions, Non-Healing Lesions, Photosensitivity, Pruritus, Rash, Skin Pain, Skin Ulcer, Sores, Striae, Swelling , Unusual Bruising, Wounds, Jaundice, Other - Neurological Neurological: absent: As Per HPI, Abnormal Gait, Abnormal Hearing, Abnormal Movements, Abnormal Speech, Behavioral Changes, Burning Sensations, Confusion, Convulsions, Disequilibrium, Dizziness, Numbness, Focal Weakness, Frequent Falls , Headaches, Lack of Coordination, Loss of Vision, Memory Loss, Paresthesias, Radicular Pain, Restless Legs, Sensory Deficit, Syncope, Tingling, Tremor, Vertigo, Weakness, Other Visual Disturbances, Other - Psychiatric Psychiatric: absent: As Per HPI, Abnormal Sleep Pattern, Anhedonia, Anxiety, Auditory Hallucinations, Behavioral Changes, Change in Appetite, Change in Libido, Confusion, Depression, Difficulty Concentrating, Hallucinations, Homicidal Ideation, Hopelessness, Irritability, Memory Loss, Mood Swings, Panic Attacks, Paranoia, Suicidal Ideation, Visual Hallucinations, Tactile Hallucinations, Other - Endocrine Endocrine: absent: As Per HPI, Change in Body Appearance, Change in Libido, Cold Intolorance, Deepening of Voice, Excessive Sweating, Fatigue, Flushing, Heat Intolorance, Increase in Ring/Shoe/Hat Size, Palpitations, Polydipsia, Polyphagia, Polyuria, Other - Hematologic/Lymphatic Hematologic: absent: As Per HPI, Easy Bleeding, Easy Bruising, Lymphadenopathy, Other Past Patient History - Past Medical History & Family History Past Medical History?: Yes - Past Social History Smoking Status: Former Smoker - CARDIAC Hx Cardiac Disorders: No - PULMONARY Hx Respiratory Disorders: No - NEUROLOGICAL Hx Neurological Disorder: No Hx Seizures: (never had seizure) - HEENT Hx HEENT Problems: No - RENAL Hx Chronic Kidney Disease: No - ENDOCRINE/METABOLIC Hx Endocrine Disorders: No - HEMATOLOGICAL/ONCOLOGICAL Hx Blood Disorders: No - INTEGUMENTARY Hx Dermatological Problems: No - MUSCULOSKELETAL/RHEUMATOLOGICAL Hx Musculoskeletal Disorders: No Hx Falls: Yes (had seizure) - GASTROINTESTINAL Hx Gastrointestinal Disorders: No - GENITOURINARY/GYNECOLOGICAL Hx Genitourinary Disorders: No - PSYCHIATRIC Hx Substance Use: No - SURGICAL HISTORY Hx Surgeries: Yes Other/Comment: ABD SX has abd stella - ANESTHESIA Hx Anesthesia: Yes Hx Anesthesia Reactions: No Hx Malignant Hyperthermia: No Has any member of the family had a problem w/ anesthesia?: No Meds Allergies/Adverse Reactions: Allergies Allergy/AdvReac Type Severity Reaction Status Date / Time No Known Allergies Allergy Verified 01/16/18 17:41 - Medications Medications: Current Medications Diltiazem HCl (Cardizem) 30 mg PO Q6H [facility] Last Admin: 01/20/18 14:01 Dose: 30 mg Heparin Sodium (Porcine) (Heparin) 5,000 units SC Q12 XU Last Admin: 01/20/18 10:56 Dose: 5,000 units Ceftriaxone Sodium 1 gm/ (Sodium Chloride) 100 mls @ 100 mls/hr IVPB Q24H XU PRN Reason: Protocol Last Admin: 01/20/18 17:01 Dose: 100 mls/hr Vancomycin/Sodium Chloride (Vancomycin 1 Gm/Ns 200 Ml) 1 gm in 200 mls @ 133.333 mls/hr IVPB Q24H XU PRN Reason: Protocol Stop: 01/25/18 13:31 Last Admin: 01/20/18 14:03 Dose: 133.333 mls/hr Lorazepam (Ativan) 1 mg IVP Q6H PRN PRN Reason: Anxiety Last Admin: 01/17/18 05:08 Dose: 1 mg Thiamine HCl (Vitamin B1 Inj) 100 mg IV DAILY XU Last Admin: 01/20/18 11:59 Dose: 100 mg Physical Exam - Constitutional Appears: Non-toxic - Head Exam Head Exam: NORMAL INSPECTION - Eye Exam Eye Exam: Normal appearance - ENT Exam ENT Exam: Mucous Membranes Moist - Neck Exam Neck exam: Positive for: Full Rom - Respiratory Exam Respiratory Exam: NORMAL BREATHING PATTERN - Cardiovascular Exam Cardiovascular Exam: REGULAR RHYTHM - GI/Abdominal Exam GI & Abdominal Exam: Normal Bowel Sounds - Rectal Exam Rectal Exam: Deferred - Extremities Exam Extremities exam: Negative for: pedal edema - Back Exam Back exam: NORMAL INSPECTION - Neurological Exam Neurological exam: Alert, Oriented x3 - Psychiatric Exam Psychiatric exam: Normal Affect - Skin Skin Exam: Normal Color Results - Vital Signs Recent Vital Signs: Last Vital Signs Temp 98.6 F 01/20/18 16:00 Pulse 82 01/20/18 16:00 Resp 20 01/20/18 16:00 BP 113/73 01/20/18 16:00 Pulse Ox 98 01/20/18 16:00 - Labs Result Diagrams: 01/19/18 20:07 01/19/18 19:44 Labs: Laboratory Results - last 24 hr 01/19/18 01/19/18 01/20/18 19:44 20:07 02:41 WBC 14.5 H RBC 4.68 Hgb 14.7 D Hct 44.4 MCV 94.9 H MCH 31.4 H MCHC 33.0 RDW 15.0 H Plt Count 422 H D MPV 9.1 Neut % (Auto) 82.8 H Lymph % (Auto) 11.9 L [place] % (Auto) 4.7 Eos % (Auto) 0.2 Baso % (Auto) 0.4 Neut # (Auto) 12.0 H Lymph # (Auto) 1.7 [place] # (Auto) 0.7 Eos # (Auto) 0.0 Baso # (Auto) 0.1 Sodium 136 Potassium 3.8 Chloride 101 Carbon Dioxide 24 Anion Gap 15 BUN 5 L Creatinine 0.7 L Est GFR ( Amer) > 60 Est GFR (Non-Af Amer) > 60 Random Glucose 122 H Calcium 8.7 Magnesium 1.8 Total Creatine Kinase 27 L CK-MB (Mass) < 0.22 Troponin I < 0.0120 < 0.0120 01/20/18 11:41 WBC RBC Hgb Hct MCV MCH MCHC RDW Plt Count MPV Neut % (Auto) Lymph % (Auto) [place] % (Auto) Eos % (Auto) Baso % (Auto) Neut # (Auto) Lymph # (Auto) [place] # (Auto) Eos # (Auto) Baso # (Auto) Sodium Potassium Chloride Carbon Dioxide Anion Gap BUN Creatinine Est GFR ( Amer) Est GFR (Non-Af Amer) Random Glucose Calcium Magnesium Total Creatine Kinase CK-MB (Mass) Troponin I < 0.0120 Assessment & Plan (1) Paroxysmal atrial fibrillation Assessment and Plan: echocardiogram reveals normal left ventricular function. He is currently is sinus rhythm. I recommend continued cardizem. He is not an ideal candidate for anticoagulation due to EtOH and risk of bleeding. recommend ASA 81 mg daily. Status: Acute
--- NOTE | 2018-01-21 00:36 | PN ---
DATE: 01/20/2018 SUBJECTIVE: The patient was seen and examined at bedside. The patient denies any new complaints other than minimal abdominal pain. No other complaints. PHYSICAL EXAMINATION: GENERAL: Middle-aged male sitting in chair in no acute distress. VITAL SIGNS: Blood pressure 111/68, pulse 79, respirations 20, temperature 98.6 degrees Fahrenheit, O2 sat 97% on room air. HEENT: Pupils equal, round, reacting to light and accommodation. Extraocular muscles intact. No icterus. No pallor. No oral thrush. No pharyngeal congestion. NECK: Supple. No JVD. LUNGS: Bilateral vesicular breath sounds. No wheezing. No rhonchi. CVS: S1, S2 present, regular. ABDOMEN: Soft. Bowel sounds present. There is purulent discharge from the incision site. Erythema noted. 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 No focal deficits noted. EXTREMITIES: No edema. Palpable peripheral pulses. MEDICATIONS: Rocephin 1 gm daily, Cardizem 30 mg p.o. every 6 hours, heparin 5000 units subcu every 12 hours, Ativan 1 mg IV push every 6 hours p.r.n., thiamine 100 mg IV daily, vancomycin 1 gm IV daily. LABORATORY DATA: Labs from this morning; WBC 14.5, hemoglobin 14.7, hematocrit 44.4, platelets 422. Cardiac enzymes x3 negative. Wound culture positive for E. coli, gram-positive cocci and yeast species. ASSESSMENT AND PLAN: Middle-aged male with history of chronic back pain status post exploratory laparotomy a week ago, admitted for witnessed seizure, developed abdominal wound infection with purulent discharge and also the patient developed paroxysmal atrial fibrillation yesterday. GUM SPRAYER was called. The patient was started on Cardizem. Cardiology consult requested. We will continue with Rocephin. Vancomycin is added by ID. We will continue with other current medications. We will follow up with [employer] for discharge planning. Jyothi Jeronimo MD
[2018-01-21] MEDS ORDERED: Oxycodone/Acetaminophen 5/325 mg Tab PO ONE (02:20)
[2018-01-21] MEDS ORDERED: Digoxin 500 mcg/2ml (0.5 mg/2ml) Inj IVP ONE ×2 (06:49→13:00)
[2018-01-21] MEDS: Thiamine 100 mg/ml Inj IV SCH (09:38)
--- NOTE | 2018-01-21 11:06 | CP.PCM.PN ---
Subjective - Date & Time of Evaluation Date of Evaluation: 01/21/18 Time of Evaluation: 11:06 - Subjective Subjective: Progress note dictated #[id number] Objective - Vital Signs/Intake and Output Vital Signs (last 24 hours): Temp Pulse Resp BP Pulse Ox 98.1 F 110 H 18 142/91 H 98 01/21/18 07:00 01/21/18 07:00 01/21/18 07:00 01/21/18 07:00 01/21/18 07:00 Intake and Output: 01/21/18 01/21/18 06:59 18:59 Intake Total 580 Balance 580 - Medications Medications: Current Medications Digoxin (Lanoxin) 0.25 mg IVP ONCE ONE Stop: 01/21/18 13:01 Diltiazem HCl (Cardizem) 60 mg PO Q6H [facility] Heparin Sodium (Porcine) (Heparin) 5,000 units SC Q12 XU Last Admin: 01/21/18 09:38 Dose: 5,000 units Ceftriaxone Sodium 1 gm/ (Sodium Chloride) 100 mls @ 100 mls/hr IVPB Q24H XU PRN Reason: Protocol Last Admin: 01/20/18 17:01 Dose: 100 mls/hr Vancomycin/Sodium Chloride (Vancomycin 1 Gm/Ns 200 Ml) 1 gm in 200 mls @ 133.333 mls/hr IVPB Q24H XU PRN Reason: Protocol Stop: 01/25/18 13:31 Last Admin: 01/20/18 14:03 Dose: 133.333 mls/hr Lorazepam (Ativan) 1 mg IVP Q6H PRN PRN Reason: Anxiety Last Admin: 01/17/18 05:08 Dose: 1 mg Thiamine HCl (Vitamin B1 Inj) 100 mg IV DAILY XU Last Admin: 01/21/18 09:38 Dose: 100 mg - Labs Labs: 01/19/18 20:07 01/19/18 19:44
--- NOTE | 2018-01-21 12:50 | CARD ---
APPROVED REPORT Date of service: 01/20/2018 EXAM: Two-dimensional and M-mode echocardiogram with Doppler and color Doppler. Other Information Quality : GoodRhythm : INDICATION Atrial Fibrillation 2D DIMENSIONS IVSd1.2 (0.7-1.1cm)LVDd4.5 (3.9-5.9cm) PWd1.0 (0.7-1.1cm)LVDs2.8 (2.5-4.0cm) FS (%) 38.5 %LVEF (%)69.0 (>50%) M-Mode DIMENSIONS RVDd1.25 (2.1-3.2cm)Left Atrium (MM)3.31 (2.5-4.0cm) IVSd0.94 (0.7-1.1cm)Aortic Root3.70 (2.2-3.7cm) LVDd5.01 (4.0-5.6cm)Aortic Cusp Exc.2.19 (1.5-2.0cm) PWd1.03 (0.7-1.1cm)FS (%) 47 % LVDs2.67 (2.0-3.8cm)LVEF (%)78 (>50%) Aortic Valve AI P 1/2 [id number] Mitral Valve MV E Bmbcltkg82.8cm/sMV A Dygszpza64.7cm/s Tricuspid Valve TR Peak [id number]/sTR Peak Gr.[id number] LEFT VENTRICLE The left ventricle is normal size. There is normal left ventricular wall thickness. The left ventricular function is normal. The left ventricular ejection fraction is within the normal range. There is normal LV segmental wall motion. The left ventricular diastolic function is normal. No left ventricle thrombus noted on this study. There is no ventricular septal defect visualized. There is no left ventricular aneurysm. There is no mass noted in the left ventricle. RIGHT VENTRICLE The right ventricle is normal size. There is normal right ventricular wall thickness. The right ventricular systolic function is normal. ATRIA The left atrium size is normal. The right atrium size is normal. The interatrial septum is intact with no evidence for an atrial septal defect. AORTIC VALVE The aortic valve is normal in structure. No aortic regurgitation is present. There is no aortic valvular stenosis. There is no aortic valvular vegetation. MITRAL VALVE The mitral valve is normal in structure. There is no mitral valve stenosis. There is no mitral valve regurgitation noted. TRICUSPID VALVE The tricuspid valve is normal in structure. There is no tricuspid valve regurgitation noted. PULMONIC VALVE The pulmonary valve is normal in structure. There is trace pulmonic valvular regurgitation. GREAT VESSELS The aortic root is normal in size. The ascending aorta is normal in size. The pulmonary artery is normal. The IVC is normal in size and collapses >50% with inspiration. PERICARDIAL EFFUSION There is no pericardial effusion. <Conclusion> NORMAL STUDY. LVEF IS 70%.
[2018-01-21 12:53] VITALS: PULSE 91
[2018-01-21] MEDS: Vancomycin 1 gm/NS 200 ml 1 GM/200 ML BAG IVPB SCH (12:57)
--- NOTE | 2018-01-21 14:47 | CP.PCM.PN ---
Subjective - Date & Time of Evaluation Date of Evaluation: 01/21/18 Time of Evaluation: 11:20 - Subjective Subjective: PGY-[address] gen surgery note for Dr Jose Patient is seen and examined at bedside. Patient reports no acute events overnight. Patient has no complains today. midline abdominal wound contains packing in place. Patient denies fever, chills, nausea or vomiting. Objective - Vital Signs/Intake and Output Vital Signs (last 24 hours): Temp Pulse Resp BP Pulse Ox 98.1 F 102 H 18 120/73 98 01/21/18 07:00 01/21/18 12:54 01/21/18 07:00 01/21/18 12:54 01/21/18 07:00 Intake and Output: 01/21/18 01/21/18 06:59 18:59 Intake Total 580 Balance 580 - Medications Medications: Current Medications Diltiazem HCl (Cardizem) 60 mg PO Q6H [facility] Last Admin: 01/21/18 12:53 Dose: 60 mg Heparin Sodium (Porcine) (Heparin) 5,000 units SC Q12 [facility] Last Admin: 01/21/18 09:38 Dose: 5,000 units Ceftriaxone Sodium 1 gm/ (Sodium Chloride) 100 mls @ 100 mls/hr IVPB Q24H XU PRN Reason: Protocol Last Admin: 01/20/18 17:01 Dose: 100 mls/hr Vancomycin/Sodium Chloride (Vancomycin 1 Gm/Ns 200 Ml) 1 gm in 200 mls @ 133.333 mls/hr IVPB Q24H XU PRN Reason: Protocol Stop: 01/25/18 13:31 Last Admin: 01/21/18 12:57 Dose: 133.333 mls/hr Lorazepam (Ativan) 1 mg IVP Q6H PRN PRN Reason: Anxiety Last Admin: 01/17/18 05:08 Dose: 1 mg Thiamine HCl (Vitamin B1 Inj) 100 mg IV DAILY [facility] Last Admin: 01/21/18 09:38 Dose: 100 mg - Labs Labs: 01/19/18 20:07 01/19/18 19:44 - Constitutional Appears: Non-toxic, No Acute Distress - Head Exam Head Exam: ATRAUMATIC, NORMAL INSPECTION, NORMOCEPHALIC - Eye Exam Eye Exam: EOMI, Normal appearance - ENT Exam ENT Exam: Mucous Membranes Moist, Normal Exam - Neck Exam Neck Exam: Full ROM, Normal Inspection - Respiratory Exam Respiratory Exam: NORMAL BREATHING PATTERN. absent: Accessory Muscle Use, Respiratory Distress - Extremities Exam Extremities Exam: Full ROM, Normal Inspection - Back Exam Back Exam: NORMAL INSPECTION - Neurological Exam Neurological Exam: Alert, Awake, Oriented x3 - Psychiatric Exam Psychiatric exam: Normal Affect, Normal Mood - Skin Additional comments: midline abdominal incision site, stitches in place, packing in place, packing wet, nonpurulent. no erythema around incision area Assessment and Plan - Assessment and Plan (Free Text) Assessment: 62M with abdominal surgical site wound infection s/p ex-lap Plan: -Continue Local wound care -Packing changed in the am. -Continue Change packing BID -C/w ABx and f/u ID recs -Encourage ambulation -continue regular diet Plan to be discussed with Dr Damon Bacon PGY-1
--- NOTE | 2018-01-21 16:10 | CP.PCM.PN ---
Subjective - Date & Time of Evaluation Date of Evaluation: 01/21/18 Time of Evaluation: 08:00 - Subjective Subjective: less drainage abd alert No distress Objective - Vital Signs/Intake and Output Vital Signs (last 24 hours): Temp Pulse Resp BP Pulse Ox 98.1 F 102 H 18 120/73 98 01/21/18 07:00 01/21/18 12:54 01/21/18 07:00 01/21/18 12:54 01/21/18 07:00 Intake and Output: 01/21/18 01/21/18 06:59 18:59 Intake Total 580 Balance 580 - Medications Medications: Current Medications Diltiazem HCl (Cardizem) 60 mg PO Q6H [facility] Last Admin: 01/21/18 12:53 Dose: 60 mg Heparin Sodium (Porcine) (Heparin) 5,000 units SC Q12 [facility] Last Admin: 01/21/18 09:38 Dose: 5,000 units Ceftriaxone Sodium 1 gm/ (Sodium Chloride) 100 mls @ 100 mls/hr IVPB Q24H XU PRN Reason: Protocol Last Admin: 01/20/18 17:01 Dose: 100 mls/hr Vancomycin/Sodium Chloride (Vancomycin 1 Gm/Ns 200 Ml) 1 gm in 200 mls @ 133.333 mls/hr IVPB Q24H XU PRN Reason: Protocol Stop: 01/25/18 13:31 Last Admin: 01/21/18 12:57 Dose: 133.333 mls/hr Lorazepam (Ativan) 1 mg IVP Q6H PRN PRN Reason: Anxiety Last Admin: 01/17/18 05:08 Dose: 1 mg Thiamine HCl (Vitamin B1 Inj) 100 mg IV DAILY [facility] Last Admin: 01/21/18 09:38 Dose: 100 mg - Labs Labs: 01/19/18 20:07 01/19/18 19:44 - Constitutional Appears: Non-toxic, Chronically Ill - Head Exam Head Exam: NORMOCEPHALIC - Eye Exam Eye Exam: PERRL - ENT Exam ENT Exam: Mucous Membranes Dry - Neck Exam Neck Exam: absent: Lymphadenopathy - Respiratory Exam Respiratory Exam: Decreased Breath Sounds - Cardiovascular Exam Cardiovascular Exam: REGULAR RHYTHM - GI/Abdominal Exam GI & Abdominal Exam: Distended, Soft, Tenderness - Rectal Exam Rectal Exam: Deferred - Exam Exam: NORMAL INSPECTION Assessment and Plan - Assessment and Plan (Free Text) Assessment: cont iv rx for wound infection
--- NOTE | 2018-01-21 19:40 | CP.PCM.PN ---
Subjective - Date & Time of Evaluation Date of Evaluation: 01/21/18 Time of Evaluation: 19:00 - Subjective Subjective: patient had an episode of rapid atrial fibrillation. He denies chest pain. Objective - Vital Signs/Intake and Output Vital Signs (last 24 hours): Temp Pulse Resp BP Pulse Ox 97.9 F 82 20 138/77 97 01/21/18 15:00 01/21/18 16:00 01/21/18 15:00 01/21/18 15:00 01/21/18 15:00 - Medications Medications: Current Medications Diltiazem HCl (Cardizem) 60 mg PO Q6H [facility] Last Admin: 01/21/18 18:00 Dose: 60 mg Heparin Sodium (Porcine) (Heparin) 5,000 units SC Q12 [facility] Last Admin: 01/21/18 09:38 Dose: 5,000 units Ceftriaxone Sodium 1 gm/ (Sodium Chloride) 100 mls @ 100 mls/hr IVPB Q24H XU PRN Reason: Protocol Last Admin: 01/21/18 16:54 Dose: 100 mls/hr Vancomycin/Sodium Chloride (Vancomycin 1 Gm/Ns 200 Ml) 1 gm in 200 mls @ 133.333 mls/hr IVPB Q24H XU PRN Reason: Protocol Stop: 01/25/18 13:31 Last Admin: 01/21/18 12:57 Dose: 133.333 mls/hr Lorazepam (Ativan) 1 mg IVP Q6H PRN PRN Reason: Anxiety Last Admin: 01/17/18 05:08 Dose: 1 mg Thiamine HCl (Vitamin B1 Inj) 100 mg IV DAILY [facility] Last Admin: 01/21/18 09:38 Dose: 100 mg - Labs Labs: 01/19/18 20:07 01/19/18 19:44 - Constitutional Appears: Non-toxic - Head Exam Head Exam: NORMAL INSPECTION - Eye Exam Eye Exam: Normal appearance - ENT Exam ENT Exam: Mucous Membranes Moist - Neck Exam Neck Exam: Full ROM - Respiratory Exam Respiratory Exam: NORMAL BREATHING PATTERN - Cardiovascular Exam Cardiovascular Exam: REGULAR RHYTHM - GI/Abdominal Exam GI & Abdominal Exam: Normal Bowel Sounds - Rectal Exam Rectal Exam: Deferred - Extremities Exam Extremities Exam: Pedal Edema - Back Exam Back Exam: NORMAL INSPECTION - Neurological Exam Neurological Exam: Alert - Psychiatric Exam Psychiatric exam: Normal Affect - Skin Skin Exam: Normal Color Assessment and Plan (1) Paroxysmal atrial fibrillation Assessment & Plan: currently in sinus rhythm. cardizem was increased. continue medical therapy Status: Acute
[2018-01-22 07:26] LABS: BASO # 0.1 K/uL (0.0-0.2); BASO % 0.6 % (0.0-2.0); EOS % 0.2 % (0.0-4.0); LYMPH # 1.6 K/uL (1.0-4.3); LYMPH % 12.8 % (20.0-40.0); MEAN CELL VOLUME 93.9 fL (80.0-94.0); MEAN CORPUSCULAR HEMOGLOBIN 31.3 pg (27.0-31.0); MEAN CORPUSCULAR HGB CONC 33.4 g/dL (33.0-37.0); MEAN PLATELET VOLUME 9.8 fL (7.2-11.7); MONO # 0.6 K/uL (0.0-0.8); MONO % 4.9 % (0.0-10.0); NEUT # 10.2 K/uL (1.8-7.0); NEUT % 81.5 % (50.0-75.0); RBC 3.65 Mil/uL (4.40-5.90); RED CELL DISTRIBUTION WIDTH 14.9 % (11.5-14.5); WHITE BLOOD COUNT 12.5 K/uL (4.8-10.8)
[2018-01-22 07:30] LABS: HEMOGLOBIN 11.4 g/dL (12.0-18.0)
[2018-01-22 07:37] LABS: ALBUMIN 2.9 g/dL (3.5-5.0); ALT/SGPT 27 U/L (21-72); AST/SGOT 15 U/L (17-59); BLOOD UREA NITROGEN 7 mg/dL (9-20); CALCIUM 8.7 mg/dl (8.6-10.4); GFR NON-AFRICAN AMERICAN > 60
--- NOTE | 2018-01-22 08:14 | PN ---
DATE: 01/21/2018 SUBJECTIVE: The patient was seen and examined at bedside. Denies any complaints other than abdominal pain. Tolerating p.o. feeds. Even from this morning noted the patient went into again rapid AFib. The patient was on digoxin and Cardizem dose adjusted. The patient denies any chest pain or any other symptoms. PHYSICAL EXAMINATION: GENERAL: Middle-aged male, lying in bed, in no acute distress. VITAL SIGNS: Blood pressure 120/73, pulse 89, respirations 20, temperature 97.9 degrees Fahrenheit, O2 saturation 97% on room air. HEENT: Pupils equal, round, and reacting to light and accommodation. Extraocular muscles intact. No icterus. No pallor. No oral thrush. No pharyngeal congestion. NECK: Supple. No JVD. LUNGS: Bilateral vesicular breath sounds. No wheezing. No rhonchi. CARDIOVASCULAR SYSTEM: S1 and S2 present, irregular. ABDOMEN: Soft. Bowel sounds present. Erythema decreasing at the surgical site. Oozing is present at the incision site. MEDICATIONS: Include Rocephin 1 g daily, Cardizem 60 mg p.o. every 6 hours, heparin 5000 units subcu every 12 hours, lorazepam 1 mg IV push every 6 hours p.r.n., thiamine 100 mg daily, vancomycin 1 g IV every 24 hours. LABORATORY DATA: For him, no new labs available. ASSESSMENT AND PLAN: Middle-aged male with chronic back pain, status post exploratory laparotomy and right hemicolectomy, status post atrial fibrillation with rapid ventricular rate. Wound culture growing Escherichia coli, coagulase-negative Staphylococcus aureus species and . Electrolyte imbalance. We will continue with current medication. Follow up with Cardiology, Surgery, and Infectious Disease. We will obtain social worker school for discharge planning. Jyothi Jeronimo MD
[2018-01-22] MEDS: Thiamine 100 mg/ml Inj IV SCH (09:20)
--- NOTE | 2018-01-22 09:54 | CP.PCM.PN ---
Subjective - Date & Time of Evaluation Date of Evaluation: 01/22/18 Time of Evaluation: 09:54 - Subjective Subjective: Progress note dictated #[id number] Objective - Vital Signs/Intake and Output Vital Signs (last 24 hours): Temp Pulse Resp BP Pulse Ox 98 F 69 20 117/71 98 01/22/18 05:25 01/22/18 05:25 01/22/18 05:25 01/22/18 05:25 01/22/18 05:25 Intake and Output: 01/22/18 01/22/18 06:59 18:59 Intake Total 580 Balance 580 - Medications Medications: Current Medications Diltiazem HCl (Cardizem) 60 mg PO Q6H [facility] Last Admin: 01/22/18 06:03 Dose: 60 mg Heparin Sodium (Porcine) (Heparin) 5,000 units SC Q12 [facility] Last Admin: 01/22/18 09:18 Dose: 5,000 units Ceftriaxone Sodium 1 gm/ (Sodium Chloride) 100 mls @ 100 mls/hr IVPB Q24H XU PRN Reason: Protocol Last Admin: 01/21/18 16:54 Dose: 100 mls/hr Vancomycin/Sodium Chloride (Vancomycin 1 Gm/Ns 200 Ml) 1 gm in 200 mls @ 133.333 mls/hr IVPB Q24H XU PRN Reason: Protocol Stop: 01/25/18 13:31 Last Admin: 01/21/18 12:57 Dose: 133.333 mls/hr Lorazepam (Ativan) 1 mg IVP Q6H PRN PRN Reason: Anxiety Last Admin: 01/17/18 05:08 Dose: 1 mg Thiamine HCl (Vitamin B1 Inj) 100 mg IV DAILY [facility] Last Admin: 01/22/18 09:20 Dose: 100 mg - Labs Labs: 01/22/18 07:00 01/22/18 07:00
[2018-01-22] MEDS: Vancomycin 1 gm/NS 200 ml 1 GM/200 ML BAG IVPB SCH (13:18)
--- NOTE | 2018-01-22 17:31 | CP.PCM.PN ---
Subjective - Date & Time of Evaluation Date of Evaluation: 01/22/18 Time of Evaluation: 08:00 - Subjective Subjective: events noted cardio eval in progress Objective - Vital Signs/Intake and Output Vital Signs (last 24 hours): Temp Pulse Resp BP Pulse Ox 98.3 F 88 20 129/78 98 01/22/18 15:00 01/22/18 15:00 01/22/18 15:00 01/22/18 15:00 01/22/18 15:00 Intake and Output: 01/22/18 01/22/18 06:59 18:59 Intake Total 580 480 Balance 580 480 - Medications Medications: Current Medications Diltiazem HCl (Cardizem) 60 mg PO Q6H [facility] Last Admin: 01/22/18 13:18 Dose: 60 mg Heparin Sodium (Porcine) (Heparin) 5,000 units SC Q12 [facility] Last Admin: 01/22/18 09:18 Dose: 5,000 units Ceftriaxone Sodium 1 gm/ (Sodium Chloride) 100 mls @ 100 mls/hr IVPB Q24H XU PRN Reason: Protocol Last Admin: 01/22/18 15:49 Dose: 100 mls/hr Vancomycin/Sodium Chloride (Vancomycin 1 Gm/Ns 200 Ml) 1 gm in 200 mls @ 133.333 mls/hr IVPB Q24H XU PRN Reason: Protocol Stop: 01/25/18 13:31 Last Admin: 01/22/18 13:18 Dose: 133.333 mls/hr Lorazepam (Ativan) 1 mg IVP Q6H PRN PRN Reason: Anxiety Last Admin: 01/17/18 05:08 Dose: 1 mg Thiamine HCl (Vitamin B1 Inj) 100 mg IV DAILY [facility] Last Admin: 01/22/18 09:20 Dose: 100 mg - Labs Labs: 01/22/18 07:00 01/22/18 07:00 - Constitutional Appears: Non-toxic, Chronically Ill - Head Exam Head Exam: NORMOCEPHALIC - Eye Exam Eye Exam: PERRL - ENT Exam ENT Exam: Mucous Membranes Dry - Neck Exam Neck Exam: absent: Lymphadenopathy - Respiratory Exam Respiratory Exam: Decreased Breath Sounds - Cardiovascular Exam Cardiovascular Exam: REGULAR RHYTHM - GI/Abdominal Exam GI & Abdominal Exam: Distended, Soft, Tenderness Assessment and Plan (1) Paroxysmal atrial fibrillation Status: Acute (2) Seizure Status: Acute (3) Abdominal pain Status: Acute - Assessment and Plan (Free Text) Assessment: abd wound with less drainage cont iv rx for now
[2018-01-23] MEDS: Vancomycin 1 gm/NS 200 ml 1 GM/200 ML BAG IVPB SCH ×2 (00:54→12:37)
--- NOTE | 2018-01-23 01:54 | PN ---
DATE: 01/22/2018 SUBJECTIVE: The patient was seen and examined at bedside. The patient offers no new complaints. Tolerating p.o. feeds. PHYSICAL EXAMINATION: GENERAL: Middle-aged male, lying in bed, in no acute distress. VITAL SIGNS: Blood pressure 117/71, pulse 69, respirations 20, temperature 98 degrees Fahrenheit, O2 sat 98% on room air. HEENT: Pupils equal, round, reacting to light and accommodation. Extraocular muscles intact. No icterus. No pallor. No oral thrush. No pharyngeal congestion. NECK: Supple. No JVD. LUNGS: Bilateral vesicular breath sounds. No wheezing. No rhonchi. CARDIOVASCULAR SYSTEM: S1, S2 present, regular. ABDOMEN: Soft, nontender. Bowel sounds present. Erythema decreasing, discharge less. Sasser in place. CENTRAL NERVOUS SYSTEM: Alert, awake, oriented x3. No focal deficits noted. EXTREMITIES: No edema. Palpable peripheral pulses. MEDICATIONS: Include Rocephin 1 g daily, Cardizem 60 mg p.o. every 6 hours, heparin 5000 units subcu every 12 hours, Ativan as needed, thiamine 100 mg daily, vancomycin 1 g IV every 12 hours. LABORATORY DATA: Labs from this morning: WBC 12.5, hemoglobin 11.4, hematocrit 34.3, platelets 397. Sodium 139, potassium 3.7, chloride 104, bicarb 34, BUN 7, creatinine 0.5, glucose 104, calcium 8.7, phosphorus 3.8, magnesium 1.8. Total bilirubin 0.5, AST 15, ALT 27, alkaline phosphatase 66, total protein 5.7, albumin 2.9. ASSESSMENT AND PLAN: Middle-aged male with past medical history of chronic low back pain, underwent exploratory laparotomy. Signed out against medical advice. Was sent to emergency department from primary medical doctor's office for witnessed seizure. Developed paroxysmal atrial fibrillation, now in sinus rhythm. Wound infection with left purulent discharge. The patient remains afebrile. We will continue with current antibiotics. Cardiology recommending only medial management. We will follow up with Infectious Disease regarding the length of antibiotic course. We will follow up with Surgery. Request social worker for discharge planning. If cleared by all the consultants, we will plan discharging the patient to subacute rehabilitation. Jyothi Jeronimo MD [facility] # [id number]
[2018-01-23 07:45] LABS: BASO # 0.1 K/uL (0.0-0.2); BASO % 0.8 % (0.0-2.0); EOS % 0.2 % (0.0-4.0); HEMOGLOBIN 11.3 g/dL (12.0-18.0); LYMPH # 1.5 K/uL (1.0-4.3); LYMPH % 10.9 % (20.0-40.0); MEAN CELL VOLUME 93.4 fL (80.0-94.0); MEAN CORPUSCULAR HEMOGLOBIN 31.8 pg (27.0-31.0); MEAN CORPUSCULAR HGB CONC 34.1 g/dL (33.0-37.0); MEAN PLATELET VOLUME 9.6 fL (7.2-11.7); MONO # 0.7 K/uL (0.0-0.8); MONO % 5.4 % (0.0-10.0); NEUT # 11.4 K/uL (1.8-7.0); NEUT % 82.7 % (50.0-75.0); RBC 3.55 Mil/uL (4.40-5.90); RED CELL DISTRIBUTION WIDTH 14.8 % (11.5-14.5); WHITE BLOOD COUNT 13.8 K/uL (4.8-10.8)
[2018-01-23 07:55] LABS: BLOOD UREA NITROGEN 6 mg/dL (9-20); CALCIUM 8.7 mg/dl (8.6-10.4); GFR NON-AFRICAN AMERICAN > 60
[2018-01-23] MEDS: Thiamine 100 mg/ml Inj IV SCH (09:26)
--- NOTE | 2018-01-23 09:42 | CP.PCM.PN ---
Subjective - Date & Time of Evaluation Date of Evaluation: 01/23/18 Time of Evaluation: 09:42 - Subjective Subjective: Progress note dictated #[id number] Objective - Vital Signs/Intake and Output Vital Signs (last 24 hours): Temp Pulse Resp BP Pulse Ox 97.9 F 69 20 117/70 97 01/23/18 07:15 01/23/18 07:15 01/23/18 07:15 01/23/18 07:15 01/23/18 07:15 - Medications Medications: Current Medications Diltiazem HCl (Cardizem) 60 mg PO Q6H [facility] Last Admin: 01/23/18 06:23 Dose: 60 mg Heparin Sodium (Porcine) (Heparin) 5,000 units SC Q12 [facility] Last Admin: 01/23/18 09:29 Dose: 5,000 units Ceftriaxone Sodium 1 gm/ (Sodium Chloride) 100 mls @ 100 mls/hr IVPB Q24H XU PRN Reason: Protocol Last Admin: 01/22/18 15:49 Dose: 100 mls/hr Vancomycin/Sodium Chloride (Vancomycin 1 Gm/Ns 200 Ml) 1 gm in 200 mls @ 133 mls/hr IVPB Q12H XU PRN Reason: Protocol Stop: 01/28/18 01:01 Last Admin: 01/23/18 00:54 Dose: 133 mls/hr Lorazepam (Ativan) 1 mg IVP Q6H PRN PRN Reason: Anxiety Last Admin: 01/17/18 05:08 Dose: 1 mg Thiamine HCl (Vitamin B1 Inj) 100 mg IV DAILY [facility] Last Admin: 01/23/18 09:26 Dose: 100 mg - Labs Labs: 01/23/18 07:35 01/23/18 07:35
--- NOTE | 2018-01-23 17:32 | CP.PCM.PCO ---
Physician Communication Note - Physician Communication Note Physician Communication Note: tele reviewed. remains in sinus rhythm. will change to daily cardizem
--- NOTE | 2018-01-23 22:32 | PN ---
DATE: 01/23/2018 SUBJECTIVE: The patient was seen and examined at bedside. The patient offers no new complaints other than mild abdominal discomfort and pain at the surgical site. PHYSICAL EXAMINATION: GENERAL: Middle aged male, lying in bed, in no acute distress. VITAL SIGNS: Blood pressure 114/72, pulse 76, respirations 20, temperature 99.5 degrees Fahrenheit, O2 sat is 99% on room air. HEENT: Pupils equal, round, reacting to light and accommodation. Extraocular muscles intact. No icterus. No pallor. No oral thrush. No pharyngeal congestion. NECK: Supple. No JVD. LUNGS: Bilateral vesicular breath sounds. No wheezing. No rhonchi. CARDIOVASCULAR SYSTEM: S1 and S2 present, regular. ABDOMEN: Soft. Bowel sounds present. Dressing in place with purulent discharge and stella in place, decreasing discharge. CENTRAL NERVOUS SYSTEM: Alert, awake, oriented x3. No focal deficits noted. EXTREMITIES: No edema. Palpable peripheral pulses.. MEDICATIONS: Include Rocephin 1 g IV daily, Cardizem 60 mg p.o. every 6 hours, heparin 5000 units subcutaneous every 12 hours, Ativan 1 mg IV push every 6 hours p.r.n., thiamine 100 mg daily, vancomycin 1 g IV every 12 hours. LABORATORY DATA: Labs from today: WBC 13.8, hemoglobin 11.3, hematocrit 33.1, platelets 465. Sodium 138, potassium 4, chloride 104, bicarb 27, BUN 6, creatinine 0.5, glucose 109, calcium 8.7. ASSESSMENT AND PLAN: Middle aged male with chronic low back pain, status post exploratory laparotomy and right hemicolectomy. Admitted for witnessed seizure from primary medical doctor's office, status post confusion, electrolyte imbalance, wound infection, paroxysmal atrial fibrillation. The patient is now in sinus rhythm. We will continue with cardiac management as per Cardiology. The patient is on two intravenous antibiotics. If cleared by Surgery and Infectious Disease, the patient may be transferred to subacute rehabilitation. We will follow up with Infectious Disease regarding the length of antibiotic course. tax services professional making arrangements for him to go to subacute rehabilitation. If cleared by all the consultants, the patient will be discharged to subacute rehabilitation when bed available. Jyothi Jeronimo MD [facility] # [id number]
[2018-01-24] MEDS: Vancomycin 1 gm/NS 200 ml 1 GM/200 ML BAG IVPB SCH ×2 (02:21→14:47)
[2018-01-24] MEDS: diltiaZEM 240 mg/24 Hours CD Cap PO SCH (09:22)
[2018-01-24] MEDS: Thiamine 100 mg/ml Inj IV SCH (09:23)
--- NOTE | 2018-01-24 11:48 | CP.PCM.PN ---
Subjective - Date & Time of Evaluation Date of Evaluation: 01/24/18 Time of Evaluation: 11:48 - Subjective Subjective: Progress note dictated #[id number] Objective - Vital Signs/Intake and Output Vital Signs (last 24 hours): Temp Pulse Resp BP Pulse Ox 98.4 F 80 20 125/69 97 01/24/18 07:30 01/24/18 07:30 01/24/18 07:30 01/24/18 07:30 01/24/18 07:30 Intake and Output: 01/24/18 01/24/18 06:59 18:59 Intake Total 320 Output Total 400 Balance -80 - Medications Medications: Current Medications Diltiazem HCl (Cardizem Cd) 240 mg PO DAILY [facility] Last Admin: 01/24/18 09:22 Dose: 240 mg Heparin Sodium (Porcine) (Heparin) 5,000 units SC Q12 [facility] Last Admin: 01/24/18 09:22 Dose: 5,000 units Ceftriaxone Sodium 1 gm/ (Sodium Chloride) 100 mls @ 100 mls/hr IVPB Q24H XU PRN Reason: Protocol Last Admin: 01/23/18 17:00 Dose: 100 mls/hr Vancomycin/Sodium Chloride (Vancomycin 1 Gm/Ns 200 Ml) 1 gm in 200 mls @ 133 mls/hr IVPB Q12H XU PRN Reason: Protocol Stop: 01/28/18 01:01 Last Admin: 01/24/18 02:21 Dose: 133 mls/hr Thiamine HCl (Vitamin B1 Inj) 100 mg IV DAILY [facility] Last Admin: 01/24/18 09:23 Dose: 100 mg - Labs Labs: 01/23/18 07:35 01/23/18 07:35
[2018-01-24] MEDS: Aluminum Hydroxide/Magnesium Hydroxide Susp (30 mL) PO PRN (16:44)
--- NOTE | 2018-01-24 21:01 | PN ---
DATE: 01/24/2018 SUBJECTIVE: The patient was seen and examined at bedside. The patient is complaining of minimal abdominal discomfort and pain at the surgical site. Denies any new complaints. PHYSICAL EXAMINATION: GENERAL: On examination, a middle-aged male, lying in bed, in no acute distress. VITAL SIGNS: Blood pressure 125/69, pulse 80, respirations 20, temperature 98.4 degrees Fahrenheit, and O2 saturations 97% on room air. HEENT: Pupils equal, round, and reacting to light and accommodation. Extraocular muscles are intact. No icterus, no pallor, no oral thrush, and no pharyngeal congestion. NECK: Supple, no JVD. LUNGS: Bilateral vesicular breath sounds. No wheezing, no rhonchi. CVS: S1 and S2 present, regular. ABDOMEN: Soft, bowel sounds present. There is purulent discharge coming out of the surgical wound site. Uziel in place. Erythema decreasing. Packing was done at the wound site. MEDICATIONS: Include Rocephin 1 g daily, Cardizem CD 240 mg p.o. daily, heparin 5000 units subcu every 12 hours, thiamine 100 mg daily, and vancomycin 1 g IV every 12 hours. ASSESSMENT AND PLAN: A middle-aged male with history of chronic low back pain, status post exploratory laparotomy for perforated viscus; right hemicolectomy; admitted for witnessed seizure status post acute confused state, electrolyte imbalance; status post paroxysmal atrial fibrillation, now in sinus rhythm; and wound infection with persistent purulent discharge. Discussed with social science analyst for subacute rehab placement. We will follow up with Infectious Disease regarding length of IV antibiotics. Follow up with Surgery for further treatment plan. We will continue with current medication. The patient is now in sinus rhythm. His Cardizem switched to long-acting daily dose. Continue with other current therapy. Jyothi Jeronimo MD
[2018-01-25] MEDS: Vancomycin 1 gm/NS 200 ml 1 GM/200 ML BAG IVPB SCH ×2 (01:12→13:04)
[2018-01-25] MEDS: Aluminum Hydroxide/Magnesium Hydroxide Susp (30 mL) PO PRN ×2 (07:39→16:09)
--- NOTE | 2018-01-25 08:27 | CARD ---
APPROVED REPORT Date of service: 01/21/2018 EKG Measurement Heart [id number] <Conclusion> Atrial flutter with variable AV block Marked ST abnormality, possible inferior subendocardial injury Abnormal ECG
[2018-01-25] MEDS: Thiamine 100 mg/ml Inj IV SCH (09:24)
[2018-01-25] MEDS: diltiaZEM 240 mg/24 Hours CD Cap PO SCH (09:24)
--- NOTE | 2018-01-25 13:13 | CP.PCM.PN ---
Subjective - Date & Time of Evaluation Date of Evaluation: 01/25/18 Time of Evaluation: 13:13 - Subjective Subjective: Progress note dictated #[id number] Objective - Vital Signs/Intake and Output Vital Signs (last 24 hours): Temp Pulse Resp BP Pulse Ox 98 F 80 20 136/68 98 01/25/18 09:00 01/25/18 09:00 01/25/18 09:00 01/25/18 09:00 01/25/18 09:00 Intake and Output: 01/25/18 01/25/18 06:59 18:59 Intake Total 480 Balance 480 - Medications Medications: Current Medications Al Hydrox/Mg Hydrox/Simethicone (Maalox 30 Ml) 30 ml PO Q8 PRN PRN Reason: Indigestion / Heartburn Last Admin: 01/25/18 07:39 Dose: 30 ml Diltiazem HCl (Cardizem Cd) 240 mg PO DAILY [facility] Last Admin: 01/25/18 09:24 Dose: 240 mg Vancomycin/Sodium Chloride (Vancomycin 1 Gm/Ns 200 Ml) 1 gm in 200 mls @ 133 mls/hr IVPB Q12H XU PRN Reason: Protocol Stop: 01/28/18 01:01 Last Admin: 01/25/18 13:04 Dose: 133 mls/hr Thiamine HCl (Vitamin B1 Inj) 100 mg IV DAILY [facility] Last Admin: 01/25/18 09:24 Dose: 100 mg - Labs Labs: 01/23/18 07:35 01/23/18 07:35
--- NOTE | 2018-01-25 14:17 | CP.PCM.PN ---
Subjective - Date & Time of Evaluation Date of Evaluation: 01/25/18 Time of Evaluation: 08:00 - Subjective Subjective: no fever drainage + may need surgical re-eval cardio stable Objective - Vital Signs/Intake and Output Vital Signs (last 24 hours): Temp Pulse Resp BP Pulse Ox 98 F 80 20 136/68 98 01/25/18 09:00 01/25/18 09:00 01/25/18 09:00 01/25/18 09:00 01/25/18 09:00 Intake and Output: 01/25/18 01/25/18 06:59 18:59 Intake Total 480 Balance 480 - Medications Medications: Current Medications Al Hydrox/Mg Hydrox/Simethicone (Maalox 30 Ml) 30 ml PO Q8 PRN PRN Reason: Indigestion / Heartburn Last Admin: 01/25/18 07:39 Dose: 30 ml Diltiazem HCl (Cardizem Cd) 240 mg PO DAILY [facility] Last Admin: 01/25/18 09:24 Dose: 240 mg Vancomycin/Sodium Chloride (Vancomycin 1 Gm/Ns 200 Ml) 1 gm in 200 mls @ 133 mls/hr IVPB Q12H XU PRN Reason: Protocol Stop: 01/28/18 01:01 Last Admin: 01/25/18 13:04 Dose: 133 mls/hr Ceftriaxone Sodium 1 gm/ (Sodium Chloride) 100 mls @ 100 mls/hr IVPB DAILY XU PRN Reason: Protocol Thiamine HCl (Vitamin B1 Inj) 100 mg IV DAILY [facility] Last Admin: 01/25/18 09:24 Dose: 100 mg - Labs Labs: 01/23/18 07:35 01/23/18 07:35 - Constitutional Appears: Non-toxic, Chronically Ill - Head Exam Head Exam: NORMOCEPHALIC - Eye Exam Eye Exam: PERRL - ENT Exam ENT Exam: Mucous Membranes Dry - Neck Exam Neck Exam: absent: Lymphadenopathy - Respiratory Exam Respiratory Exam: Decreased Breath Sounds - Cardiovascular Exam Cardiovascular Exam: REGULAR RHYTHM - GI/Abdominal Exam GI & Abdominal Exam: Distended, Soft, Tenderness - Rectal Exam Rectal Exam: Deferred - Exam Exam: NORMAL INSPECTION - Extremities Exam Extremities Exam: absent: Pedal Edema - Back Exam Back Exam: absent: CVA tenderness (L), CVA tenderness (R) - Neurological Exam Neurological Exam: Alert, Awake, Oriented x3 - Psychiatric Exam Psychiatric exam: Normal Mood - Skin Skin Exam: Dry Assessment and Plan (1) Paroxysmal atrial fibrillation Status: Acute (2) Seizure Status: Acute (3) Abdominal pain Status: Acute - Assessment and Plan (Free Text) Assessment: cont iv rx and wound care for [facility] placement
--- NOTE | 2018-01-25 18:08 | PN ---
DATE: 01/25/2018 SUBJECTIVE: The patient was seen and examined at bedside. The patient offers no new complaints. Complaining of minimal abdominal discomfort, requesting for Xanax and oxycodone to be reinstated. Denies any other complaints. PHYSICAL EXAMINATION: GENERAL: A middle-aged male, lying in bed, in no acute distress. VITAL SIGNS: Blood pressure 136/88, pulse 80, respirations 20, temperature 98 degrees Fahrenheit, O2 saturations 98% on room air. HEENT: Pupils equal, round, and reacting to light and accommodation. Extraocular muscles intact. No icterus, no pallor, no oral thrush, no pharyngeal congestion. NECK: Supple. No JVD. LUNGS: Bilateral vesicular breath sounds. No wheezing, no rhonchi. CVS: S1 and S2 present, regular. ABDOMEN: Soft. Bowel sounds present. Decreasing purulent discharge from the incision site. Dressing in place. Packing removed. . Bowel sounds present. No guarding, no rigidity, no rebound tenderness noted. WOMEN'S MINISTRY DIRECTOR: Alert, awake, and oriented x3. No focal deficits noted. EXTREMITIES: No edema. Palpable peripheral pulses. MEDICATIONS: Include; Maalox 30 mL every 8 hours as needed, Rocephin 1 g daily, Cardizem 240 mg daily, thiamine 100 mg IV daily, vancomycin 1 g IV every 12 hours. ASSESSMENT AND PLAN: A middle-aged male with history of chronic low back pain, status post exploratory laparotomy and right hemicolectomy, admitted for witnessed seizure, altered mental status, found to have wound infection. Developed paroxysmal atrial fibrillation, now in normal sinus rhythm, electrolyte disorder, requesting for continuation of pain medication. We will request psychiatric followup and continue with current antibiotics. We will repeat labs in the morning. Follow up with social media director for subacute rehabilitation placement. Continue with Cardizem for paroxysmal atrial fibrillation. No further cardiac workups recommended by Cardiology at this time. We will continue with deep venous thrombosis and gastrointestinal prophylaxis. We will add further recommendations as his clinical course progresses. Jyothi Jeronimo MD
[2018-01-26] MEDS: Vancomycin 1 gm/NS 200 ml 1 GM/200 ML BAG IVPB SCH ×2 (00:50→12:40)
[2018-01-26] MEDS: Aluminum Hydroxide/Magnesium Hydroxide Susp (30 mL) PO PRN ×2 (05:43→15:59)
[2018-01-26 07:38] LABS: BASO # 0.1 K/uL (0.0-0.2); BASO % 0.8 % (0.0-2.0); EOS % 0.2 % (0.0-4.0); HEMOGLOBIN 11.2 g/dL (12.0-18.0); LYMPH # 1.6 K/uL (1.0-4.3); LYMPH % 12.5 % (20.0-40.0); MEAN CORPUSCULAR HEMOGLOBIN 31.8 pg (27.0-31.0); MEAN CORPUSCULAR HGB CONC 33.8 g/dL (33.0-37.0); MEAN PLATELET VOLUME 9.6 fL (7.2-11.7); MONO % 7.6 % (0.0-10.0); NEUT # 10.4 K/uL (1.8-7.0); NEUT % 78.9 % (50.0-75.0); RBC 3.54 Mil/uL (4.40-5.90); RED CELL DISTRIBUTION WIDTH 14.3 % (11.5-14.5); WHITE BLOOD COUNT 13.2 K/uL (4.8-10.8)
[2018-01-26 07:49] LABS: ALB/GLOB RATIO 0.9 (1.0-2.1); ALT/SGPT 40 U/L (21-72); AST/SGOT 29 U/L (17-59); BLOOD UREA NITROGEN 8 mg/dL (9-20); GFR NON-AFRICAN AMERICAN > 60
[2018-01-26] MEDS: diltiaZEM 240 mg/24 Hours CD Cap PO SCH (10:29)
[2018-01-26] MEDS: Thiamine 100 mg/ml Inj IV SCH (10:29)
--- NOTE | 2018-01-26 11:02 | CP.PCM.PN ---
Subjective - Date & Time of Evaluation Date of Evaluation: 01/26/18 Time of Evaluation: 11:02 - Subjective Subjective: Progress note dictated #[id number] Objective - Vital Signs/Intake and Output Vital Signs (last 24 hours): Temp Pulse Resp BP Pulse Ox 98.4 F 76 20 116/76 99 01/26/18 07:00 01/26/18 07:00 01/26/18 07:00 01/26/18 07:00 01/26/18 07:00 - Medications Medications: Current Medications Al Hydrox/Mg Hydrox/Simethicone (Maalox 30 Ml) 30 ml PO Q8 PRN PRN Reason: Indigestion / Heartburn Last Admin: 01/26/18 05:43 Dose: 30 ml Diltiazem HCl (Cardizem Cd) 240 mg PO DAILY [facility] Last Admin: 01/26/18 10:29 Dose: 240 mg Heparin Sodium (Porcine) (Heparin) 5,000 units SC Q12 XU Last Admin: 01/26/18 10:29 Dose: 5,000 units Vancomycin/Sodium Chloride (Vancomycin 1 Gm/Ns 200 Ml) 1 gm in 200 mls @ 133 mls/hr IVPB Q12H XU PRN Reason: Protocol Stop: 01/28/18 01:01 Last Admin: 01/26/18 00:50 Dose: 133 mls/hr Ceftriaxone Sodium 1 gm/ (Sodium Chloride) 100 mls @ 100 mls/hr IVPB DAILY XU PRN Reason: Protocol Last Admin: 01/26/18 10:28 Dose: 100 mls/hr Thiamine HCl (Vitamin B1 Inj) 100 mg IV DAILY [facility] Last Admin: 01/26/18 10:29 Dose: 100 mg - Labs Labs: 01/26/18 06:53 01/26/18 06:53
--- NOTE | 2018-01-26 11:10 | CP.PCM.PN ---
Subjective - Date & Time of Evaluation Date of Evaluation: 01/26/18 Time of Evaluation: 09:00 - Subjective Subjective: drainage less IV rx in progress Objective - Vital Signs/Intake and Output Vital Signs (last 24 hours): Temp Pulse Resp BP Pulse Ox 98.4 F 76 20 116/76 99 01/26/18 07:00 01/26/18 07:00 01/26/18 07:00 01/26/18 07:00 01/26/18 07:00 - Medications Medications: Current Medications Al Hydrox/Mg Hydrox/Simethicone (Maalox 30 Ml) 30 ml PO Q8 PRN PRN Reason: Indigestion / Heartburn Last Admin: 01/26/18 05:43 Dose: 30 ml Diltiazem HCl (Cardizem Cd) 240 mg PO DAILY [facility] Last Admin: 01/26/18 10:29 Dose: 240 mg Heparin Sodium (Porcine) (Heparin) 5,000 units SC Q12 [facility] Last Admin: 01/26/18 10:29 Dose: 5,000 units Vancomycin/Sodium Chloride (Vancomycin 1 Gm/Ns 200 Ml) 1 gm in 200 mls @ 133 mls/hr IVPB Q12H XU PRN Reason: Protocol Stop: 01/28/18 01:01 Last Admin: 01/26/18 00:50 Dose: 133 mls/hr Ceftriaxone Sodium 1 gm/ (Sodium Chloride) 100 mls @ 100 mls/hr IVPB DAILY XU PRN Reason: Protocol Last Admin: 01/26/18 10:28 Dose: 100 mls/hr Thiamine HCl (Vitamin B1 Inj) 100 mg IV DAILY [facility] Last Admin: 01/26/18 10:29 Dose: 100 mg - Labs Labs: 01/26/18 06:53 01/26/18 06:53 - Constitutional Appears: Non-toxic, Chronically Ill - Head Exam Head Exam: NORMOCEPHALIC - Eye Exam Eye Exam: PERRL - ENT Exam ENT Exam: Mucous Membranes Dry - Neck Exam Neck Exam: absent: Lymphadenopathy - Respiratory Exam Respiratory Exam: Decreased Breath Sounds - Cardiovascular Exam Cardiovascular Exam: REGULAR RHYTHM - GI/Abdominal Exam GI & Abdominal Exam: Distended, Soft - Rectal Exam Rectal Exam: Deferred - Exam Exam: NORMAL INSPECTION - Extremities Exam Extremities Exam: absent: Pedal Edema - Back Exam Back Exam: absent: CVA tenderness (L), CVA tenderness (R) - Neurological Exam Neurological Exam: Alert, Awake, CN II-XII Intact Assessment and Plan (1) Paroxysmal atrial fibrillation Status: Acute (2) Seizure Status: Acute (3) Abdominal pain Status: Acute - Assessment and Plan (Free Text) Assessment: cont wound care surgical re-eval
[2018-01-26] MEDS ORDERED: Iohexol 240 (50 ml) PO ONE ×2 (15:45→16:00)
[2018-01-26] MEDS ORDERED: Iohexol 300 100 ML IJ ONE (16:15)
--- NOTE | 2018-01-26 18:34 | CT ---
Date of service: 01/26/2018 PROCEDURE: CT Abdomen and Pelvis with contrast HISTORY: wound infection COMPARISON: 01/18/2018. 01/15/2018. Serial CT scans of the abdomen and pelvis TECHNIQUE: Contrast dose: Oral contrast only. Radiation dose: Total exam DLP = 524.27 mGy-cm. This CT exam was performed using one or more of the following dose reduction techniques: Automated exposure control, adjustment of the mA and/or kV according to patient size, and/or use of iterative reconstruction technique. FINDINGS: LOWER THORAX: Unremarkable. LIVER: Unremarkable. No gross lesion or ductal dilatation. GALLBLADDER AND BILE DUCTS: Unremarkable. PANCREAS: Evolving pancreatitis primarily affecting the head of the pancreas. Peripancreatic/ right upper quadrant fluid identified. No CT evidence of acute pancreatitis. SPLEEN: Unremarkable. ADRENALS: Unremarkable. No mass. KIDNEYS AND URETERS: Unremarkable. No hydronephrosis. No solid mass. VASCULATURE: Unremarkable. No aortic aneurysm. BOWEL: Postoperative changes related to right hemicolectomy. APPENDIX: Normal appendix. PERITONEUM: Subhepatic fluid collections/loculated ascites - drainable collection. Adjacent small loculated fluid also noted. Please refer to series 3 images 80- 98 and coronal series 601 images 50 06-1962 Additional loculated fluid collections adjacent to the pancreas (axis or is 3/image 75 and coronal series 601/image 44) and an additional loculated fluid collection which appears adjacent to the IVC measuring 2.6 x 4.3 cm identified. LYMPH NODES: Unremarkable. No enlarged lymph nodes. BLADDER: Bladder wall thickening likely reflective of cystitis. Air-fluid level again identified in the urinary bladder. REPRODUCTIVE: Unremarkable. BONES: No acute fracture. No significant interval change compared to the prior examination(s). OTHER FINDINGS: None. IMPRESSION: Evidence of a evolving acute pancreatitis without necrotizing pancreatitis. This includes inflammatory edematous changes about the head of the pancreas peripancreatic soft tissues. Likely pseudocyst formation noted described in greater detail above. Additional multiloculated drainable collections subhepatic space, which appear better defined with a more mature wall. Postoperative changes related to right hemicolectomy. No abnormalities are visible at the surgical suture lines.
--- NOTE | 2018-01-26 22:41 | PN ---
DATE: 01/26/2018 SUBJECTIVE: The patient was seen and examined at bedside. The patient offers no new complaints, complaining of abdominal minimal pain at the surgical site and oozing. PHYSICAL EXAMINATION: GENERAL: Middle-aged male, lying in bed, in no acute distress. VITAL SIGNS: Blood pressure 116/76, pulse 76, respirations 20, temperature 98.4 degrees Fahrenheit, O2 sat is 99% on room air. HEENT: Pupils equal, round, reacting to light and accommodation. Extraocular muscles intact. No icterus. No pallor. No oral thrush. No pharyngeal congestion. NECK: Supple. No JVD. LUNGS: Bilateral vesicular breath sounds. No wheezing. No rhonchi. CARDIOVASCULAR SYSTEM: S1, S2 present, regular. ABDOMEN: Soft. Bowel sounds present. There is discharge from the wound site, purulent. Minimal erythema noted. Packing removed. CENTRAL NERVOUS SYSTEM: Alert, awake, oriented x3. No focal deficits noted. EXTREMITIES: No edema. Palpable peripheral pulses. MEDICATIONS: Include; Maalox 30 mL every 8 hours, Rocephin 1 g daily, Cardizem 240 mg daily, heparin 5000 units subcutaneously every 12 hours, thiamine 100 mg IV daily, vancomycin 1 g IV every 12 hours. LABORATORY DATA: Labs from this morning: WBC 13.2, hemoglobin 11.2, hematocrit 33.3, platelets 530. Sodium 137, potassium 4.1, chloride 103, bicarb 23, BUN 8, creatinine 0.6, glucose 114, calcium 9, phosphorus 4, magnesium 2. AST 29, ALT 40, alkaline phosphatase 79, total protein 6.2, albumin 3. ASSESSMENT AND PLAN: A middle-aged male with history of back pain, status post exploratory laparotomy with right hemicolectomy. Admitted for witnessed seizure, altered mental status, electrolyte abnormality, wound infection. The patient is on Rocephin and vancomycin. Still discharge from the wound site. We will obtain surgical re-evaluation. We will repeat CT scan of the abdomen and pelvis with oral and intravenous contrast. We will discuss with Dr. Sommers. We will obtain healthcare social worker for discharge planning. Continue with deep venous thrombosis and gastrointestinal prophylaxes. Jyothi Jeronimo MD
[2018-01-27] MEDS: Aluminum Hydroxide/Magnesium Hydroxide Susp (30 mL) PO PRN ×2 (00:34→15:54)
[2018-01-27] MEDS: Vancomycin 1 gm/NS 200 ml 1 GM/200 ML BAG IVPB SCH ×2 (01:02→12:21)
[2018-01-27] MEDS ORDERED: Dextrose 5%/0.9% NS 1,000 ML IV SCH (08:00)
--- NOTE | 2018-01-27 09:37 | CP.PCM.CON ---
<Heidi Blankenship - Last Filed: 01/27/18 09:19> History of Present Illness - History of Present Illness History of Present Illness: Gastroenterology Fellow/PGY6 Consult Note 62 year old male with PMH of Afib and emergent right hemicolectomy with anastomosis presenting with seizure activity. Patient unable to provide details regarding abdominal surgery. Patient's contacted and notes infectious process leading to emergency surgery at [facility] concern for patient not eating and change of mentation for two months. At present, on record review concern for seizure activity at physician's office leading to present admission. Active treatment of post-op wound infection with loculated fluid collections noted on CT A/P PO/IV contrast. GI consultation for pancreatitis noted on CT A/P 01/18 and 01/26. Patient endorses drinking alcohol since his 20s but has cut down in the last few years to one beer a day confirmed by . Notes small bilious vomitus last night and this morning after attempting to eat half a banana. Notes unchanged abdominal discomfort present since surgery and mainly around incision site. Notes increased loose stool since surgery with increased frequency to 4-5 times a day during current admission. Endorses daily formed bowel movements prior to surgery. Denies fever, chills, sweats, constipation, melena, hematochezia, or unintentional weight loss. No prior EGD or colonoscopy. Family History- denies stomach cnacer, colon cancer Social History- quit tobacco over 20 years ago, endorses 1 beer daily; denies illicit drug use Surgical History- back surgery Review of Systems - Review of Systems Review of Systems: 12-point review of systems negative except for as above Past Patient History - Past Medical History & Family History Past Medical History?: Yes - Past Social History Smoking Status: Former Smoker - CARDIAC Hx Cardiac Disorders: No - PULMONARY Hx Respiratory Disorders: No - NEUROLOGICAL Hx Neurological Disorder: No Hx Seizures: (never had seizure) - HEENT Hx HEENT Problems: No - RENAL Hx Chronic Kidney Disease: No - ENDOCRINE/METABOLIC Hx Endocrine Disorders: No - HEMATOLOGICAL/ONCOLOGICAL Hx Blood Disorders: No - INTEGUMENTARY Hx Dermatological Problems: No - MUSCULOSKELETAL/RHEUMATOLOGICAL Hx Musculoskeletal Disorders: No Hx Falls: Yes (had seizure) - GASTROINTESTINAL Hx Gastrointestinal Disorders: No - GENITOURINARY/GYNECOLOGICAL Hx Genitourinary Disorders: No - PSYCHIATRIC Hx Substance Use: No - SURGICAL HISTORY Hx Surgeries: Yes Other/Comment: ABD SX has abd stella - ANESTHESIA Hx Anesthesia: Yes Hx Anesthesia Reactions: No Hx Malignant Hyperthermia: No Has any member of the family had a problem w/ anesthesia?: No Meds Allergies/Adverse Reactions: Allergies Allergy/AdvReac Type Severity Reaction Status Date / Time No Known Allergies Allergy Verified 01/16/18 17:41 - Medications Medications: Current Medications Al Hydrox/Mg Hydrox/Simethicone (Maalox 30 Ml) 30 ml PO Q8 PRN PRN Reason: Indigestion / Heartburn Last Admin: 01/27/18 00:34 Dose: 30 ml Diltiazem HCl (Cardizem Cd) 240 mg PO DAILY [facility] Last Admin: 01/26/18 10:29 Dose: 240 mg Heparin Sodium (Porcine) (Heparin) 5,000 units SC Q12 [facility] Last Admin: 01/26/18 21:17 Dose: 5,000 units Vancomycin/Sodium Chloride (Vancomycin 1 Gm/Ns 200 Ml) 1 gm in 200 mls @ 133 mls/hr IVPB Q12H [facility] PRN Reason: Protocol Stop: 01/28/18 01:01 Last Admin: 01/27/18 01:02 Dose: 133 mls/hr Ceftriaxone Sodium 1 gm/ (Sodium Chloride) 100 mls @ 100 mls/hr IVPB DAILY [facility] PRN Reason: Protocol Last Admin: 01/26/18 10:28 Dose: 100 mls/hr Dextrose/Sodium Chloride (Dextrose 5%/0.9% Ns 1000 Ml) 1,000 mls @ 100 mls/hr IV .Q10H [facility] Ondansetron HCl (Zofran Inj) 4 mg IVP Q6H PRN PRN Reason: Nausea/Vomiting Last Admin: 01/27/18 04:00 Dose: 4 mg Thiamine HCl (Vitamin B1 Inj) 100 mg IV DAILY [facility] Last Admin: 01/26/18 10:29 Dose: 100 mg Physical Exam - Constitutional Appears: Non-toxic, No Acute Distress - Head Exam Head Exam: ATRAUMATIC, NORMOCEPHALIC - Eye Exam Eye Exam: EOMI, PERRL. absent: Scleral icterus Pupil Exam: PERRL. absent: Miosis, Mydriatic - ENT Exam ENT Exam: Mucous Membranes Moist, Normal Oropharynx - Neck Exam Neck exam: Positive for: Full Rom, Normal Inspection - Respiratory Exam Respiratory Exam: Clear to Auscultation Bilateral. absent: Rales, Rhonchi, Wheezes - Cardiovascular Exam Cardiovascular Exam: RRR, +S1, +S2. absent: Gallop, Rubs - GI/Abdominal Exam GI & Abdominal Exam: Normal Bowel Sounds, Soft, Tenderness. absent: Distended, Firm, Guarding, Organomegaly, Rebound, Rigid Additional comments: vertical, midline dressing in place, C/D/I, tenderness to palpation adjancent to dressing and RUQ - Extremities Exam Extremities exam: Positive for: normal inspection. Negative for: pedal edema - Neurological Exam Neurological exam: Alert - Psychiatric Exam Psychiatric exam: Normal Affect, Normal Mood - Skin Skin Exam: Dry, Intact, Normal Color, Warm Results - Vital Signs Recent Vital Signs: Last Vital Signs Temp 98.2 F 01/27/18 07:00 Pulse 74 01/27/18 07:00 Resp 20 01/27/18 07:00 BP 133/80 01/27/18 07:00 Pulse Ox 96 01/27/18 07:00 - Labs Result Diagrams: 01/26/18 06:53 01/26/18 06:53 Assessment & Plan - Assessment and Plan (Free Text) Assessment: 62 year old male with PMH of Afib and emergent right hemicolectomy with anastomosis presenting with seizure activity. Active treatment of concern for alcohol withdrawal seizure, post-op wound E.coli/S. coagulase infection with intra-abdominal loculated fluid collections noted on CT A/P PO/IV contrast. GI consultation for mild acute pancreatitis with pancreatic head edema noted on CT A/P 01/18 and 01/26. No prior EGD or colonoscopy. Plan: -possible alcoholic vs iatrogenic pancreatitis -ECHO- normal LV function -recommend IVF resuscitation with LR 2L bolus -followed by maintenance 150-200cc/hr -ID managing- on ceftriaxone/vancomycin -surgery managing-follow up recommendations -abdominal xray- no signs of ileus/obstruction, follwo up final read -recommends clear liquid low fat diet, pain control -supportive care-IVFs, pain control -will obtain records from [facility] regarding abdominal surgery today -will follow clinical course <Arash Tran - Last Filed: 01/27/18 12:57> Meds - Medications Medications: Current Medications Al Hydrox/Mg Hydrox/Simethicone (Maalox 30 Ml) 30 ml PO Q8 PRN PRN Reason: Indigestion / Heartburn Last Admin: 01/27/18 00:34 Dose: 30 ml Diltiazem HCl (Cardizem Cd) 240 mg PO DAILY [facility] Last Admin: 01/27/18 10:59 Dose: Not Given Heparin Sodium (Porcine) (Heparin) 5,000 units SC Q12 XU Last Admin: 01/27/18 11:00 Dose: 5,000 units Vancomycin/Sodium Chloride (Vancomycin 1 Gm/Ns 200 Ml) 1 gm in 200 mls @ 133 mls/hr IVPB Q12H XU PRN Reason: Protocol Stop: 01/28/18 01:01 Last Admin: 01/27/18 12:21 Dose: 133 mls/hr Lactated Ringer's (Lactated Ringer's) 1,000 mls @ 150 mls/hr IV .Q6H40M XU Cefepime HCl 1 gm/ Dextrose 50 mls @ 100 mls/hr IVPB Q8H XU PRN Reason: Protocol Last Admin: 01/27/18 12:12 Dose: 100 mls/hr Ondansetron HCl (Zofran Inj) 4 mg IVP Q6H PRN PRN Reason: Nausea/Vomiting Last Admin: 01/27/18 11:14 Dose: 4 mg Thiamine HCl (Vitamin B1 Inj) 100 mg IV DAILY [facility] Last Admin: 01/27/18 11:00 Dose: 100 mg Results - Vital Signs Recent Vital Signs: Last Vital Signs Temp 98.2 F 01/27/18 07:00 Pulse 74 01/27/18 07:00 Resp 20 01/27/18 07:00 BP 133/80 01/27/18 07:00 Pulse Ox 96 01/27/18 07:00 - Labs Result Diagrams: 01/26/18 06:53 01/26/18 06:53 Attending/Attestation - Attestation I have personally seen and examined this patient.: Yes I have fully participated in the care of the patient.: Yes I have reviewed all pertinent clinical information: Yes Notes (Text): 01/27/18 12:51 I have seen and examined patient with GI fellow. Agree with above documentation with the following additions. In brief, this is a 62 year old male with history of atrial fibrillation, recent partial colon resection ( reason unclear, ?ischemia), who presented to hospital from PMD's office after noting seizure activity. GI called for evaluation of abdominal pain and pancreatitis. He is currently undergoing neurological workup for seizure disorder along with post operative wound infection with intra-abdominal loculated fluid collections. He was previously tolerating PO diet without difficulty, though developed epigastric discomfort, 5/10 intensity and vomiting yesterday. Subsequent CT imaging showed evolving pancreatitis. He does report daily ETOH intake along with recent loose bowel movements. He denies weight loss, rectal bleeding, or fever/chills. No prior endoscopic evaluation. Atrial fibrillation Partial colon resection - reason unclear, ?ischemia Seizure Abdominal pain, pancreatitis - possibly related to ETOH use CT imaging reviewed by me showing mina-pancreatic edema and inflammatory changes surrounding HOP, subhepatic loculated fluid collections likely representing post operative changes - Clear liquid diet as tolerated - Continue with antibiotic therapy as per ID - Continue with IVF hydration therapy, supportive care - Anti-emetic therapy PRN - Obtain recent surgical records from colonic resection - Will continue to monitor patient clinical course
--- NOTE | 2018-01-27 10:07 | CP.PCM.PN ---
Subjective - Date & Time of Evaluation Date of Evaluation: 01/27/18 Time of Evaluation: 10:07 - Subjective Subjective: Progress note dictated # [id number] Objective - Vital Signs/Intake and Output Vital Signs (last 24 hours): Temp Pulse Resp BP Pulse Ox 98.2 F 74 20 133/80 96 01/27/18 07:00 01/27/18 07:00 01/27/18 07:00 01/27/18 07:00 01/27/18 07:00 Intake and Output: 01/27/18 01/27/18 06:59 18:59 Intake Total 500 200 Balance 500 200 - Medications Medications: Current Medications Al Hydrox/Mg Hydrox/Simethicone (Maalox 30 Ml) 30 ml PO Q8 PRN PRN Reason: Indigestion / Heartburn Last Admin: 01/27/18 00:34 Dose: 30 ml Diltiazem HCl (Cardizem Cd) 240 mg PO DAILY [facility] Last Admin: 01/26/18 10:29 Dose: 240 mg Heparin Sodium (Porcine) (Heparin) 5,000 units SC Q12 [facility] Last Admin: 01/26/18 21:17 Dose: 5,000 units Vancomycin/Sodium Chloride (Vancomycin 1 Gm/Ns 200 Ml) 1 gm in 200 mls @ 133 mls/hr IVPB Q12H XU PRN Reason: Protocol Stop: 01/28/18 01:01 Last Admin: 01/27/18 01:02 Dose: 133 mls/hr Ceftriaxone Sodium 1 gm/ (Sodium Chloride) 100 mls @ 100 mls/hr IVPB DAILY XU PRN Reason: Protocol Last Admin: 01/26/18 10:28 Dose: 100 mls/hr Lactated Ringer's (Lactated Ringer's) 1,000 mls @ 1,000 mls/hr IV .Q1H XU Stop: 01/27/18 11:59 Lactated Ringer's (Lactated Ringer's) 1,000 mls @ 150 mls/hr IV .Q6H40M [facility] Ondansetron HCl (Zofran Inj) 4 mg IVP Q6H PRN PRN Reason: Nausea/Vomiting Last Admin: 01/27/18 04:00 Dose: 4 mg Thiamine HCl (Vitamin B1 Inj) 100 mg IV DAILY [facility] Last Admin: 01/26/18 10:29 Dose: 100 mg - Labs Labs: 01/26/18 06:53 01/26/18 06:53
--- NOTE | 2018-01-27 10:13 | PCM.IRP ---
History of Present Illness - History of Present Illness History of Present Illness: IR consulted for abdominal collections CT reviewed. Collections is subhepatic space are not drainable from a percutaneous image guided approach. Will continue to follow. Objective - Vital Signs/Intake and Output Vital Signs (last 24 hours): Vital Signs - 24 hr 01/26/18 01/26/18 01/26/18 13:45 15:00 15:25 Temperature 98.4 F Pulse Rate 72 79 80 Respiratory 20 Rate Blood Pressure 121/75 O2 Sat by Pulse 97 Oximetry 01/26/18 01/27/18 01/27/18 23:15 00:10 03:43 Temperature 98.9 F 98.5 F Pulse Rate 80 80 74 Respiratory 20 20 Rate Blood Pressure 123/48 L 123/76 O2 Sat by Pulse 95 96 Oximetry 01/27/18 01/27/18 04:09 07:00 Temperature 98.2 F Pulse Rate 77 74 Respiratory 20 Rate Blood Pressure 133/80 O2 Sat by Pulse 96 Oximetry Intake and Output (last 12 hours): Intake & Output 01/26/18 01/27/18 01/27/18 18:59 06:59 18:59 Intake Total 860 500 200 Balance 860 500 200 Intake: Intake, IV Amount 300 200 Left Hand 300 200 Oral 560 500 Other: # Voids Urine, Voided 4 3 4 # Bowel Movements 1 0 1 - Medications Medications: Current Medications Al Hydrox/Mg Hydrox/Simethicone (Maalox 30 Ml) 30 ml PO Q8 PRN PRN Reason: Indigestion / Heartburn Last Admin: 01/27/18 00:34 Dose: 30 ml Diltiazem HCl (Cardizem Cd) 240 mg PO DAILY [facility] Last Admin: 01/26/18 10:29 Dose: 240 mg Heparin Sodium (Porcine) (Heparin) 5,000 units SC Q12 XU Last Admin: 01/26/18 21:17 Dose: 5,000 units Vancomycin/Sodium Chloride (Vancomycin 1 Gm/Ns 200 Ml) 1 gm in 200 mls @ 133 mls/hr IVPB Q12H XU PRN Reason: Protocol Stop: 01/28/18 01:01 Last Admin: 01/27/18 01:02 Dose: 133 mls/hr Ceftriaxone Sodium 1 gm/ (Sodium Chloride) 100 mls @ 100 mls/hr IVPB DAILY XU PRN Reason: Protocol Last Admin: 01/26/18 10:28 Dose: 100 mls/hr Lactated Ringer's (Lactated Ringer's) 1,000 mls @ 1,000 mls/hr IV .Q1H [facility] Stop: 01/27/18 11:59 Lactated Ringer's (Lactated Ringer's) 1,000 mls @ 150 mls/hr IV .Q6H40M [facility] Ondansetron HCl (Zofran Inj) 4 mg IVP Q6H PRN PRN Reason: Nausea/Vomiting Last Admin: 01/27/18 04:00 Dose: 4 mg Thiamine HCl (Vitamin B1 Inj) 100 mg IV DAILY [facility] Last Admin: 01/26/18 10:29 Dose: 100 mg
[2018-01-27] MEDS: Lactated Ringer's 1,000 ML IV SCH ×4 (10:30→19:35)
[2018-01-27] MEDS: diltiaZEM 240 mg/24 Hours CD Cap PO SCH (10:59)
[2018-01-27] MEDS: Thiamine 100 mg/ml Inj IV SCH (11:00)
--- NOTE | 2018-01-27 11:06 | CP.PCM.PN ---
Subjective - Date & Time of Evaluation Date of Evaluation: 01/27/18 Time of Evaluation: 09:00 - Subjective Subjective: seen by surgery IR could not drain collections Objective - Vital Signs/Intake and Output Vital Signs (last 24 hours): Temp Pulse Resp BP Pulse Ox 98.2 F 74 20 133/80 96 01/27/18 07:00 01/27/18 07:00 01/27/18 07:00 01/27/18 07:00 01/27/18 07:00 Intake and Output: 01/27/18 01/27/18 06:59 18:59 Intake Total 500 200 Balance 500 200 - Medications Medications: Current Medications Al Hydrox/Mg Hydrox/Simethicone (Maalox 30 Ml) 30 ml PO Q8 PRN PRN Reason: Indigestion / Heartburn Last Admin: 01/27/18 00:34 Dose: 30 ml Diltiazem HCl (Cardizem Cd) 240 mg PO DAILY [facility] Last Admin: 01/27/18 10:59 Dose: Not Given Heparin Sodium (Porcine) (Heparin) 5,000 units SC Q12 [facility] Last Admin: 01/26/18 21:17 Dose: 5,000 units Vancomycin/Sodium Chloride (Vancomycin 1 Gm/Ns 200 Ml) 1 gm in 200 mls @ 133 mls/hr IVPB Q12H XU PRN Reason: Protocol Stop: 01/28/18 01:01 Last Admin: 01/27/18 01:02 Dose: 133 mls/hr Ceftriaxone Sodium 1 gm/ (Sodium Chloride) 100 mls @ 100 mls/hr IVPB DAILY XU PRN Reason: Protocol Last Admin: 01/26/18 10:28 Dose: 100 mls/hr Lactated Ringer's (Lactated Ringer's) 1,000 mls @ 1,000 mls/hr IV .Q1H [facility] Stop: 01/27/18 11:59 Lactated Ringer's (Lactated Ringer's) 1,000 mls @ 150 mls/hr IV .Q6H40M [facility] Ondansetron HCl (Zofran Inj) 4 mg IVP Q6H PRN PRN Reason: Nausea/Vomiting Last Admin: 01/27/18 04:00 Dose: 4 mg Thiamine HCl (Vitamin B1 Inj) 100 mg IV DAILY [facility] Last Admin: 01/26/18 10:29 Dose: 100 mg - Labs Labs: 01/26/18 06:53 01/26/18 06:53 - Constitutional Appears: Non-toxic, Chronically Ill - Head Exam Head Exam: NORMOCEPHALIC - Eye Exam Eye Exam: PERRL - ENT Exam ENT Exam: Mucous Membranes Dry - Neck Exam Neck Exam: absent: Lymphadenopathy - Respiratory Exam Respiratory Exam: Decreased Breath Sounds - Cardiovascular Exam Cardiovascular Exam: REGULAR RHYTHM - GI/Abdominal Exam GI & Abdominal Exam: Distended, Soft. absent: Tenderness Additional comments: + drainage from midline wound - Rectal Exam Rectal Exam: Deferred - Exam Exam: NORMAL INSPECTION - Extremities Exam Extremities Exam: absent: Pedal Edema - Back Exam Back Exam: absent: CVA tenderness (L), CVA tenderness (R) - Neurological Exam Neurological Exam: Alert, Awake, CN II-XII Intact - Psychiatric Exam Psychiatric exam: Depressed - Skin Skin Exam: Dry Assessment and Plan (1) Paroxysmal atrial fibrillation Status: Acute (2) Seizure Status: Acute (3) Abdominal pain Status: Acute - Assessment and Plan (Free Text) Assessment: cont IV rx surgical eval and folllow up wound care
[2018-01-27] MEDS ORDERED: Meropenem 1 GM in Sodium Chloride 0.9% 100 ML IVPB SCH (11:15)
--- NOTE | 2018-01-27 11:22 | RAD ---
Date of service: 01/27/2018 HISTORY: vomiting COMPARISON: CT abdomen and pelvis 01/26/2018 FINDINGS: BOWEL: The left sub diaphragmatic gas may represent gas within a distended stomach was distended with mottled material on the CT. Surgical changes right abdomen compatible with known right colonic surgery Residual contrast within portions of the right: Left: The rectosigmoid colon BONES: Inferior lumbar spine surgery with hardware grossly intact appearing. L4-5 right marginal osteophytosis. Bilateral hip arthrosis. OTHER FINDINGS: Midline abdominal skin sutures IMPRESSION: Probable gas within a distended stomach reflecting the left subdiaphragmatic gas appearance correlate clinically. No small or large bowel obstruction appreciated on this exam. Please note CT findings referencing pancreatitis phlegmon and pseudocyst formations/other fluid like intra-abdominal collections
--- NOTE | 2018-01-27 15:56 | CP.PCM.PN ---
Subjective - Date & Time of Evaluation Date of Evaluation: 01/27/18 Time of Evaluation: 15:47 - Subjective Subjective: DISCUSSED IV ABX PLAN/DURATION WITH DR. REED. PER HIM, PT WILL CONTINUE IV ABX FOR 10 DAYS. NO FURTHER ORDERS. Objective - Vital Signs/Intake and Output Vital Signs (last 24 hours): Temp Pulse Resp BP Pulse Ox 98.2 F 74 20 133/80 96 01/27/18 07:00 01/27/18 07:00 01/27/18 07:00 01/27/18 07:00 01/27/18 07:00 Intake and Output: 01/27/18 01/27/18 06:59 18:59 Intake Total 500 200 Balance 500 200 - Medications Medications: Current Medications Al Hydrox/Mg Hydrox/Simethicone (Maalox 30 Ml) 30 ml PO Q8 PRN PRN Reason: Indigestion / Heartburn Last Admin: 01/27/18 00:34 Dose: 30 ml Diltiazem HCl (Cardizem Cd) 240 mg PO DAILY [facility] Last Admin: 01/27/18 10:59 Dose: Not Given Heparin Sodium (Porcine) (Heparin) 5,000 units SC Q12 [facility] Last Admin: 01/27/18 11:00 Dose: 5,000 units Vancomycin/Sodium Chloride (Vancomycin 1 Gm/Ns 200 Ml) 1 gm in 200 mls @ 133 mls/hr IVPB Q12H XU PRN Reason: Protocol Stop: 01/28/18 01:01 Last Admin: 01/27/18 12:21 Dose: 133 mls/hr Lactated Ringer's (Lactated Ringer's) 1,000 mls @ 150 mls/hr IV .Q6H40M XU Cefepime HCl 1 gm/ Dextrose 50 mls @ 100 mls/hr IVPB Q8H XU PRN Reason: Protocol Last Admin: 01/27/18 12:12 Dose: 100 mls/hr Ondansetron HCl (Zofran Inj) 4 mg IVP Q6H PRN PRN Reason: Nausea/Vomiting Last Admin: 01/27/18 11:14 Dose: 4 mg Thiamine HCl (Vitamin B1 Inj) 100 mg IV DAILY [facility] Last Admin: 01/27/18 11:00 Dose: 100 mg - Labs Labs: 01/26/18 06:53 01/26/18 06:53
[2018-01-27 19:41] LABS: BASO # 0.1 K/uL (0.0-0.2); BASO % 0.4 % (0.0-2.0); EOS % 0.2 % (0.0-4.0); HEMOGLOBIN 11.2 g/dL (12.0-18.0); LYMPH # 1.5 K/uL (1.0-4.3); LYMPH % 11.9 % (20.0-40.0); MEAN CELL VOLUME 93.2 fL (80.0-94.0); MEAN CORPUSCULAR HEMOGLOBIN 31.2 pg (27.0-31.0); MEAN CORPUSCULAR HGB CONC 33.5 g/dL (33.0-37.0); MEAN PLATELET VOLUME 8.3 fL (7.2-11.7); NEUT # 10.2 K/uL (1.8-7.0); NEUT % 79.5 % (50.0-75.0); RBC 3.57 Mil/uL (4.40-5.90); RED CELL DISTRIBUTION WIDTH 14.4 % (11.5-14.5); WHITE BLOOD COUNT 12.8 K/uL (4.8-10.8)
[2018-01-27 19:55] LABS: ALT/SGPT 46 U/L (21-72); AMYLASE 131 U/L (30-110); AST/SGOT 25 U/L (17-59); BLOOD UREA NITROGEN 9 mg/dL (9-20); CALCIUM 8.6 mg/dl (8.6-10.4); GFR NON-AFRICAN AMERICAN > 60; LIPASE 427 U/L (23-300)
--- NOTE | 2018-01-27 21:13 | CP.PCM.PCO ---
Physician Communication Note - Physician Communication Note Physician Communication Note: called due to emesis x 2, billious. abdomen soft , non-distended. NPO now
--- NOTE | 2018-01-28 00:06 | PN ---
DATE: 01/27/2018 SUBJECTIVE: The patient was seen and examined at bedside. The patient is still complaining of abdominal discomfort. Denies any new complaints. PHYSICAL EXAMINATION: GENERAL: Middle-aged male, lying in bed, in no acute distress. VITAL SIGNS: Blood pressure is 133/80, pulse 74, respirations 20, temperature 98.2 degrees Fahrenheit, O2 sat is 96% on room air. HEENT: Pupils equal, round, reacting to light and accommodation. Extraocular muscles intact. No icterus. No pallor. No oral thrush. No pharyngeal congestion. NECK: Supple. No JVD. No thyromegaly. CHEST: Moving equally bilaterally on this patient. LUNGS: Bilateral vesicular breath sounds. No wheezing. No rhonchi. CARDIOVASCULAR SYSTEM: S1 and S2 present, regular. ABDOMEN: Soft. Bowel sounds present. Purulent discharge noted from the incision site. Redness improved. Slightly tender. No guarding. No rigidity. No rebound tenderness noted. CENTRAL NERVOUS SYSTEM: Alert, awake, oriented x3. No focal deficits noted. EXTREMITIES: No edema. Palpable peripheral pulses. MEDICATIONS: Include Maalox as needed, cefepime 1 g IV every 8 hours, Cardizem 240 mg p.o. daily, heparin 5000 units subcutaneously every 12 hours, Ringer's Lactate 150 mL per hour, Zofran 4 mg IV push every 6 hours p.r.n., thiamine 100 mg IV daily, vancomycin 1 g IV every 12 hours. LABORATORY DATA: Labs ordered, pending, not done yet. CT of the abdomen and pelvis shows evidence of resolving acute pancreatitis without necrotizing pancreatitis, inflammatory edematous changes about the head of pancreas, peripancreatic soft tissues likely pseudocyst formation, additional multiloculated drainable collections, subhepatic space which appeared better defined with more matured wall, postoperative changes related to right hemicolectomy, no abnormalities are visible at the surgical suture line. Abdominal x-ray, probable gas within the distended stomach reflecting the left subdiaphragmatic gas appearance. No small or large bowel obstruction. ASSESSMENT AND PLAN: A middle-age male with history of chronic low back pain, on pain medication, status post exploratory laparotomy with right hemicolectomy. Admitted for witnessed seizure, altered mental status, electrolyte abnormalities, wound infection. Repeat CT consistent with intra-abdominal loculated fluid collections and early acute pancreatitis. Surgical consult requested. Waiting for evaluation. Gastroenterology consult requested and gastroenterology consult appreciated. Labs were not done yet. I advised the floor nurse to repeat the labs from this morning. We will follow up with the labs. Continue with intravenous fluids. Antibiotics changed by Dr. Sommers. Cefepime is added instead of Rocephin. Continue with vancomycin. Discussed with registered nurse. Interventional Radiology was requested by surgical team for possible CT-guided drainage of the abscesses. As per Interventional Radiology, they are not amenable for percutaneous drainage. The patient may require drainage by Surgery. We will follow up with Surgery. Continue with other current medications. The patient is now in sinus rhythm. We will add further recommendations as his clinical course progresses. Jyothi Jeronimo MD
[2018-01-28] MEDS: Vancomycin 1 gm/NS 200 ml 1 GM/200 ML BAG IVPB SCH (00:52)
[2018-01-28] MEDS: Lactated Ringer's 1,000 ML IV SCH ×5 (03:12→23:50)
--- NOTE | 2018-01-28 08:37 | CP.PCM.PN ---
<KrzysztofHeidi - Last Filed: 01/28/18 11:59> Subjective - Date & Time of Evaluation Date of Evaluation: 01/28/18 Time of Evaluation: 09:13 - Subjective Subjective: Gastroenterology Fellow/PGY6 Progress Note Patient resting comfortably. Noted to have two episodes of bilious vomitus overnight without inciting event. Notes two loose bowel movements yesterday. A 12-point review of systems negative except for as above. Objective - Vital Signs/Intake and Output Vital Signs (last 24 hours): Temp Pulse Resp BP Pulse Ox 98.7 F 90 20 120/77 98 01/28/18 07:00 01/28/18 07:00 01/28/18 07:00 01/28/18 07:00 01/28/18 07:00 Intake and Output: 01/28/18 01/28/18 06:59 18:59 Intake Total 2200 Output Total 50 Balance 2150 - Medications Medications: Current Medications Al Hydrox/Mg Hydrox/Simethicone (Maalox 30 Ml) 30 ml PO Q8 PRN PRN Reason: Indigestion / Heartburn Last Admin: 01/27/18 15:54 Dose: 30 ml Diltiazem HCl (Cardizem Cd) 240 mg PO DAILY [facility] Last Admin: 01/27/18 10:59 Dose: Not Given Heparin Sodium (Porcine) (Heparin) 5,000 units SC Q12 [facility] Last Admin: 01/27/18 21:38 Dose: 5,000 units Lactated Ringer's (Lactated Ringer's) 1,000 mls @ 150 mls/hr IV .Q6H40M [facility] Last Admin: 01/28/18 05:56 Dose: 150 mls/hr Cefepime HCl 1 gm/ Dextrose 50 mls @ 100 mls/hr IVPB Q8H [facility] PRN Reason: Protocol Last Admin: 01/28/18 03:03 Dose: 100 mls/hr Morphine Sulfate (Morphine) 1 mg IVP Q6H PRN PRN Reason: Pain, severe (8-10) Ondansetron HCl (Zofran Inj) 4 mg IVP Q6H PRN PRN Reason: Nausea/Vomiting Last Admin: 01/28/18 06:01 Dose: 4 mg Thiamine HCl (Vitamin B1 Inj) 100 mg IV DAILY [facility] Last Admin: 01/27/18 11:00 Dose: 100 mg - Labs Labs: 01/27/18 19:37 01/27/18 19:37 - Constitutional Appears: Non-toxic, No Acute Distress - Head Exam Head Exam: ATRAUMATIC, NORMOCEPHALIC - Eye Exam Eye Exam: EOMI, PERRL. absent: Scleral icterus Pupil Exam: PERRL. absent: Miosis, Mydriatic - ENT Exam ENT Exam: Mucous Membranes Moist, Normal Oropharynx - Neck Exam Neck Exam: Full ROM, Normal Inspection - Respiratory Exam Respiratory Exam: Clear to Ausculation Bilateral. absent: Rales, Rhonchi, Wheezes - Cardiovascular Exam Cardiovascular Exam: RRR, +S1, +S2. absent: Gallop, Rubs - GI/Abdominal Exam GI & Abdominal Exam: Soft, Tenderness, Normal Bowel Sounds. absent: Distended, Firm, Guarding, Rigid, Organomegaly, Rebound Additional comments: midline vertical incision with dressing in place, C/D/I - Extremities Exam Extremities Exam: Normal Inspection. absent: Pedal Edema - Neurological Exam Neurological Exam: Alert, Awake - Psychiatric Exam Psychiatric exam: Normal Affect, Normal Mood - Skin Skin Exam: Dry, Intact, Normal Color, Warm Assessment and Plan - Assessment and Plan (Free Text) Assessment: 62 year old male with PMH of Afib and emergent right hemicolectomy with anastomosis 01/12/18 2/2 cecal bascule (performed at [facility] [place]) presenting with seizure activity. Active treatment of concern for alcohol withdrawal seizure, post-op wound E.coli/S. coagulase infection with intra-abdominal loculated fluid collections noted on CT A/P PO/IV contrast. GI consultation for mild acute pancreatitis with pancreatic head edema noted on CT A/P 01/18 and 01/26 likely secondary to alcohol versus iatrogenic. No prior EGD or colonoscopy. 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 - GNR UTI Plan: -IR consult- fluid collections not amenable to percutaneous drainage -received 2 L LR bolus 01/27 -continue IVFs LR 150/hr -advance to low fat clear liquid diet as tolerated -01/27 abdominal xray- no signs of ileus/obstruction -supportive care: pain control, anti-emetics -on cefepime -surgery managing -will follow clinical course <MarcArash Haq - Last Filed: 01/28/18 12:29> Objective - Vital Signs/Intake and Output Vital Signs (last 24 hours): Temp Pulse Resp BP Pulse Ox 98.7 F 90 20 120/77 98 01/28/18 07:00 01/28/18 07:00 01/28/18 07:00 01/28/18 07:00 01/28/18 07:00 Intake and Output: 01/28/18 01/28/18 06:59 18:59 Intake Total 2200 Output Total 50 Balance 2150 - Medications Medications: Current Medications Al Hydrox/Mg Hydrox/Simethicone (Maalox 30 Ml) 30 ml PO Q8 PRN PRN Reason: Indigestion / Heartburn Last Admin: 01/27/18 15:54 Dose: 30 ml Diltiazem HCl (Cardizem Cd) 240 mg PO DAILY [facility] Last Admin: 01/27/18 10:59 Dose: Not Given Heparin Sodium (Porcine) (Heparin) 5,000 units SC Q12 [facility] Last Admin: 01/28/18 11:00 Dose: 5,000 units Lactated Ringer's (Lactated Ringer's) 1,000 mls @ 150 mls/hr IV .Q6H40M [facility] Last Admin: 01/28/18 05:56 Dose: 150 mls/hr Cefepime HCl 1 gm/ Dextrose 50 mls @ 100 mls/hr IVPB Q8H XU PRN Reason: Protocol Last Admin: 01/28/18 11:24 Dose: 100 mls/hr Morphine Sulfate (Morphine) 1 mg IVP Q6H PRN PRN Reason: Pain, severe (8-10) Ondansetron HCl (Zofran Inj) 4 mg IVP Q6H PRN PRN Reason: Nausea/Vomiting Last Admin: 01/28/18 06:01 Dose: 4 mg Thiamine HCl (Vitamin B1 Inj) 100 mg IV DAILY [facility] Last Admin: 01/28/18 11:00 Dose: 100 mg - Labs Labs: 01/27/18 19:37 01/27/18 19:37 Attending/Attestation - Attestation I have personally seen and examined this patient.: Yes I have fully participated in the care of the patient.: Yes I have reviewed all pertinent clinical information, including history, physical exam and plan: Yes Notes (Text): 01/28/18 12:23 I have seen and examined patient with GI fellow. Two episodes of vomiting yesterday evening noted, none today thus far. He reports ongoing abdominal discomfort, though slowly improving. He had a semi-formed/loose bowel movement yesterday. Review of vitals from today are normal. Atrial fibrillation Cecal bacule s/p right hemicolectomy Seizure Abdominal pain, pancreatitis Post operative wound infection, intraabdominal fluid collection - Clear liquid diet as tolerated - Anti-emetic therapy PRN - Continue with IVF hydration and supportive care - Continue with antibiotic therapy - Abdominal XR from yesterday reviewed by me showing no obstructive pathology - Will continue to monitor patient clinical course
--- NOTE | 2018-01-28 10:04 | CP.PCM.PN ---
Subjective - Date & Time of Evaluation Date of Evaluation: 01/28/18 Time of Evaluation: 10:04 - Subjective Subjective: Progress note dictated #[id number] Objective - Vital Signs/Intake and Output Vital Signs (last 24 hours): Temp Pulse Resp BP Pulse Ox 98.7 F 90 20 120/77 98 01/28/18 07:00 01/28/18 07:00 01/28/18 07:00 01/28/18 07:00 01/28/18 07:00 Intake and Output: 01/28/18 01/28/18 06:59 18:59 Intake Total 2200 Output Total 50 Balance 2150 - Medications Medications: Current Medications Al Hydrox/Mg Hydrox/Simethicone (Maalox 30 Ml) 30 ml PO Q8 PRN PRN Reason: Indigestion / Heartburn Last Admin: 01/27/18 15:54 Dose: 30 ml Diltiazem HCl (Cardizem Cd) 240 mg PO DAILY [facility] Last Admin: 01/27/18 10:59 Dose: Not Given Heparin Sodium (Porcine) (Heparin) 5,000 units SC Q12 [facility] Last Admin: 01/27/18 21:38 Dose: 5,000 units Lactated Ringer's (Lactated Ringer's) 1,000 mls @ 150 mls/hr IV .Q6H40M [facility] Last Admin: 01/28/18 05:56 Dose: 150 mls/hr Cefepime HCl 1 gm/ Dextrose 50 mls @ 100 mls/hr IVPB Q8H [facility] PRN Reason: Protocol Last Admin: 01/28/18 03:03 Dose: 100 mls/hr Morphine Sulfate (Morphine) 1 mg IVP Q6H PRN PRN Reason: Pain, severe (8-10) Ondansetron HCl (Zofran Inj) 4 mg IVP Q6H PRN PRN Reason: Nausea/Vomiting Last Admin: 01/28/18 06:01 Dose: 4 mg Thiamine HCl (Vitamin B1 Inj) 100 mg IV DAILY [facility] Last Admin: 01/27/18 11:00 Dose: 100 mg - Labs Labs: 01/27/18 19:37 01/27/18 19:37
[2018-01-28] MEDS: Thiamine 100 mg/ml Inj IV SCH (11:00)
[2018-01-28] MEDS: diltiaZEM 240 mg/24 Hours CD Cap PO SCH (14:25)
--- NOTE | 2018-01-28 18:04 | CP.PCM.PN ---
Subjective - Date & Time of Evaluation Date of Evaluation: 01/28/18 Time of Evaluation: 09:00 - Subjective Subjective: denies fever less drainage Objective - Vital Signs/Intake and Output Vital Signs (last 24 hours): Temp Pulse Resp BP Pulse Ox 98.7 F 93 H 20 132/77 96 01/28/18 15:00 01/28/18 15:00 01/28/18 15:00 01/28/18 15:00 01/28/18 15:00 Intake and Output: 01/28/18 01/28/18 06:59 18:59 Intake Total 2200 950 Output Total 50 Balance 2150 950 - Medications Medications: Current Medications Al Hydrox/Mg Hydrox/Simethicone (Maalox 30 Ml) 30 ml PO Q8 PRN PRN Reason: Indigestion / Heartburn Last Admin: 01/27/18 15:54 Dose: 30 ml Diltiazem HCl (Cardizem Cd) 240 mg PO DAILY [facility] Last Admin: 01/28/18 14:25 Dose: 240 mg Heparin Sodium (Porcine) (Heparin) 5,000 units SC Q12 [facility] Last Admin: 01/28/18 11:00 Dose: 5,000 units Lactated Ringer's (Lactated Ringer's) 1,000 mls @ 150 mls/hr IV .Q6H40M [facility] Last Admin: 01/28/18 09:00 Dose: Not Given Cefepime HCl 1 gm/ Dextrose 50 mls @ 100 mls/hr IVPB Q8H XU PRN Reason: Protocol Last Admin: 01/28/18 11:24 Dose: 100 mls/hr Morphine Sulfate (Morphine) 1 mg IVP Q6H PRN PRN Reason: Pain, severe (8-10) Ondansetron HCl (Zofran Inj) 4 mg IVP Q6H PRN PRN Reason: Nausea/Vomiting Last Admin: 01/28/18 06:01 Dose: 4 mg Thiamine HCl (Vitamin B1 Inj) 100 mg IV DAILY [facility] Last Admin: 01/28/18 11:00 Dose: 100 mg - Labs Labs: 01/27/18 19:37 01/27/18 19:37 - Constitutional Appears: Non-toxic, Chronically Ill - Head Exam Head Exam: NORMOCEPHALIC - Eye Exam Eye Exam: absent: Scleral icterus - ENT Exam ENT Exam: Mucous Membranes Dry - Neck Exam Neck Exam: absent: Lymphadenopathy - Respiratory Exam Respiratory Exam: Decreased Breath Sounds - Cardiovascular Exam Cardiovascular Exam: REGULAR RHYTHM - GI/Abdominal Exam GI & Abdominal Exam: Distended, Soft Assessment and Plan (1) Paroxysmal atrial fibrillation Status: Acute (2) Seizure Status: Acute (3) Abdominal pain Status: Acute - Assessment and Plan (Free Text) Assessment: 62 year old male with PMH of Afib and emergent right hemicolectomy with anastomosis 01/12/18 2 cecal bascule (performed at [facility]) presenting with seizure activity. Active treatment for alcohol withdrawal seizure, post-op wound E.coli/S. coagulase infection with intra-abdominal loculated fluid collections noted on CT A/P PO/IV contrast. -IR consult- fluid collections not amenable to percutaneous drainage cont iv rx and wound care- follow up CT in 1 week
--- NOTE | 2018-01-29 01:40 | PN ---
DATE: 01/28/2018 SUBJECTIVE: The patient was seen and examined at bedside. The patient was still complaining of abdominal discomfort. Denies any nausea at the present time. Overnight events noted. Had multiple episodes of nausea and vomiting which was bilious in nature. The patient was kept n.p.o. PHYSICAL EXAMINATION: GENERAL: Middle-aged male, lying in bed, in no acute distress. VITAL SIGNS: Blood pressure 132/77, pulse 93, respirations 20, temperature 98.7 degrees Fahrenheit, and O2 sat is 96% on room air. HEENT: Pupils equal, round, and reacting to light and accommodation. Extraocular muscles intact. No icterus. Positive pallor. No oral thrush. No pharyngeal congestion. NECK: Supple. No JVD. LUNGS: Bilateral vesicular breath sounds. No wheezing. No rhonchi. CARDIOVASCULAR SYSTEM: S1, S2 present, regular. ABDOMEN: Soft. Nontender. Surgical site with stella in place. Minimal purulent discharge noted. No erythema noted. CENTRAL NERVOUS SYSTEM: Alert, awake, and oriented x3. No focal deficits noted. EXTREMITIES: No edema. Palpable peripheral pulses. MEDICATIONS: Include Maalox 30 mL as needed, cefepime 1 g IV every 8 hours, Cardizem 240 mg p.o. daily, heparin 5000 units every 12 hours, Ringer's Lactate 150 mL/hour, morphine 1 mg IV push every 6 hours p.r.n., Zofran 4 mg IV push every 6 hours p.r.n., thiamine 100 mg IV daily, vancomycin 1 g IV every 12 hours. LABORATORY DATA: Labs from this morning: WBC 12.8, hemoglobin 11.2, hematocrit 33.3, platelets 578. Sodium 134, potassium 4.1, chloride 100, bicarb 26, , creatinine 0.6, BUN 9, glucose 111, calcium 8.6, phosphorus 3.3, magnesium 2.1. AST 25, ALT 46, alkaline phosphatase 85, total protein 6.1, and albumin 3. Amylase is 131 and lipase is 427. ASSESSMENT AND PLAN: Middle aged male with history of chronic low back pain, status post exploratory laparotomy and right hemicolectomy with witnessed seizure episode, status post confused state, status post paroxysmal atrial fibrillation with wound infection, electrolyte imbalance, acute pancreatitis. Repeat CT consistent with right intrahepatic loculated fluid collections which were not amenable for drainage by IR, status post nausea and vomiting. The patient is n.p.o. We will continue with current fluid resuscitation. Continue with vancomycin and cefepime as per Dr. Sommers. After multiple attempts, was able to contact Dr. Jose who will be following up with the patient and reviewing CT in a.m. and will give the recommendations from surgical standpoint. We will continue with current medications. Gastroenterology input was appreciated. We will follow up with group social worker for possible subacute rehab placement. If patient is surgically cleared, we will plan discharging the patient to subacute rehab and repeat followup CT in one week for followup of loculated fluid collections. We will continue with other current therapy. We will advance diet as tolerated. Jyothi Jeronimo MD
[2018-01-29] MEDS: Lactated Ringer's 1,000 ML IV SCH ×3 (05:00→18:30)
[2018-01-29 06:51] LABS: BASO # 0.1 K/uL (0.0-0.2); BASO % 1.2 % (0.0-2.0); EOS % 0.3 % (0.0-4.0); HEMOGLOBIN 11.3 g/dL (12.0-18.0); LYMPH # 1.5 K/uL (1.0-4.3); LYMPH % 13.2 % (20.0-40.0); MEAN CELL VOLUME 93.9 fL (80.0-94.0); MEAN CORPUSCULAR HEMOGLOBIN 31.4 pg (27.0-31.0); MEAN CORPUSCULAR HGB CONC 33.4 g/dL (33.0-37.0); MEAN PLATELET VOLUME 9.4 fL (7.2-11.7); MONO % 9.1 % (0.0-10.0); NEUT # 8.4 K/uL (1.8-7.0); NEUT % 76.2 % (50.0-75.0); RBC 3.61 Mil/uL (4.40-5.90); RED CELL DISTRIBUTION WIDTH 14.3 % (11.5-14.5); WHITE BLOOD COUNT 11.1 K/uL (4.8-10.8)
--- NOTE | 2018-01-29 07:21 | CP.PCM.PN ---
<Heidi Blankenship - Last Filed: 01/29/18 13:19> Subjective - Date & Time of Evaluation Date of Evaluation: 01/29/18 Time of Evaluation: 07:17 - Subjective Subjective: Gastroenterology Fellow/PGY6 Progress Note No further episodes of vomiting. Tolerated clear liquid diet. Notes two formed bowel movements yesterday. A 12-point review of systems negative except for as above. Objective - Vital Signs/Intake and Output Vital Signs (last 24 hours): Temp Pulse Resp BP Pulse Ox 98.6 F 72 20 116/62 95 01/28/18 23:10 01/29/18 00:15 01/28/18 23:10 01/28/18 23:10 01/28/18 23:10 Intake and Output: 01/29/18 01/29/18 06:59 18:59 Intake Total 2480 Output Total 500 Balance 1979 - Medications Medications: Current Medications Al Hydrox/Mg Hydrox/Simethicone (Maalox 30 Ml) 30 ml PO Q8 PRN PRN Reason: Indigestion / Heartburn Last Admin: 01/27/18 15:54 Dose: 30 ml Diltiazem HCl (Cardizem Cd) 240 mg PO DAILY [facility] Last Admin: 01/28/18 14:25 Dose: 240 mg Lactated Ringer's (Lactated Ringer's) 1,000 mls @ 150 mls/hr IV .Q6H40M [facility] Last Admin: 01/29/18 05:00 Dose: Not Given Cefepime HCl 1 gm/ Dextrose 50 mls @ 100 mls/hr IVPB Q8H XU PRN Reason: Protocol Last Admin: 01/29/18 03:47 Dose: 100 mls/hr Vancomycin HCl 1,000 mg/ (Sodium Chloride) 200 mls @ 133.333 mls/hr IVPB Q12H XU PRN Reason: Protocol Last Admin: 01/29/18 06:04 Dose: 133.333 mls/hr Morphine Sulfate (Morphine) 1 mg IVP Q6H PRN PRN Reason: Pain, severe (8-10) Ondansetron HCl (Zofran Inj) 4 mg IVP Q6H PRN PRN Reason: Nausea/Vomiting Last Admin: 01/28/18 06:01 Dose: 4 mg Thiamine HCl (Vitamin B1 Inj) 100 mg IV DAILY [facility] Last Admin: 01/28/18 11:00 Dose: 100 mg - Labs Labs: 01/29/18 06:33 01/27/18 19:37 - Constitutional Appears: Non-toxic, No Acute Distress - Head Exam Head Exam: ATRAUMATIC, NORMOCEPHALIC - Eye Exam Eye Exam: EOMI, PERRL. absent: Scleral icterus Pupil Exam: PERRL. absent: Miosis, Mydriatic - ENT Exam ENT Exam: Mucous Membranes Moist, Normal Oropharynx - Neck Exam Neck Exam: Full ROM, Normal Inspection - Respiratory Exam Respiratory Exam: Clear to Ausculation Bilateral. absent: Rales, Rhonchi, Wheezes - Cardiovascular Exam Cardiovascular Exam: RRR, +S1, +S2. absent: Gallop, Rubs - GI/Abdominal Exam GI & Abdominal Exam: Soft, Tenderness, Normal Bowel Sounds. absent: Distended, Firm, Guarding, Rigid, Organomegaly, Rebound Additional comments: mild tenderness circumferential to midline vertical dressing-C/D/I - Extremities Exam Extremities Exam: Normal Inspection. absent: Pedal Edema - Neurological Exam Neurological Exam: Alert, Awake - Psychiatric Exam Psychiatric exam: Normal Affect, Normal Mood - Skin Skin Exam: Dry, Intact, Normal Color, Warm Assessment and Plan - Assessment and Plan (Free Text) Assessment: 62 year old male with PMH of Afib and emergent right hemicolectomy with anastomosis 01/12/18 2/2 cecal bascule (performed at [facility]) presenting with seizure activity. Active treatment of concern for alcohol withdrawal seizure, post-op wound E.coli/S. coagulase infection with intra-abdominal loculated fluid collections noted on CT A/P PO/IV contrast, not amenable to percutaneous drainage. GI consultation for mild acute pancreatitis with pancreatic head edema noted on CT A/P 01/18 and 01/26 likely secondary to alcohol versus iatrogenic. No prior EGD or colonoscopy. 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 - GNR UTI Plan: -continue IVFs LR 150/hr today -titrate IVFs as diet advanced -advance to low fat full liquid diet this morning -if tolerated low fat dinner for lunch or dinner -supportive care: pain control, anti-emetics -on cefepime and vancomycin -surgery managing -will follow clinical course <Arash Tran - Last Filed: 01/29/18 13:39> Objective - Vital Signs/Intake and Output Vital Signs (last 24 hours): Temp Pulse Resp BP Pulse Ox 98.3 F 73 18 113/66 98 01/29/18 07:30 01/29/18 07:30 01/29/18 07:30 01/29/18 07:30 01/29/18 07:30 Intake and Output: 01/29/18 01/29/18 06:59 18:59 Intake Total 2480 Output Total 500 Balance 1979 - Medications Medications: Current Medications Al Hydrox/Mg Hydrox/Simethicone (Maalox 30 Ml) 30 ml PO Q8 PRN PRN Reason: Indigestion / Heartburn Last Admin: 01/27/18 15:54 Dose: 30 ml Diltiazem HCl (Cardizem Cd) 240 mg PO DAILY [facility] Last Admin: 01/29/18 09:42 Dose: 240 mg Lactated Ringer's (Lactated Ringer's) 1,000 mls @ 150 mls/hr IV .Q6H40M [facility] Last Admin: 01/29/18 12:18 Dose: Not Given Cefepime HCl 1 gm/ Dextrose 50 mls @ 100 mls/hr IVPB Q8H XU PRN Reason: Protocol Last Admin: 01/29/18 11:40 Dose: 100 mls/hr Vancomycin HCl 1,000 mg/ (Sodium Chloride) 200 mls @ 133.333 mls/hr IVPB Q12H XU PRN Reason: Protocol Last Admin: 01/29/18 06:04 Dose: 133.333 mls/hr Morphine Sulfate (Morphine) 1 mg IVP Q6H PRN PRN Reason: Pain, severe (8-10) Ondansetron HCl (Zofran Inj) 4 mg IVP Q6H PRN PRN Reason: Nausea/Vomiting Last Admin: 01/28/18 06:01 Dose: 4 mg Thiamine HCl (Vitamin B1 Inj) 100 mg IV DAILY [facility] Last Admin: 01/29/18 09:42 Dose: 100 mg - Labs Labs: 01/29/18 06:33 01/29/18 06:33 Attending/Attestation - Attestation I have personally seen and examined this patient.: Yes I have fully participated in the care of the patient.: Yes I have reviewed all pertinent clinical information, including history, physical exam and plan: Yes Notes (Text): 01/29/18 13:36 I have seen and examined patient with GI fellow. No acute events overnight, he is seen resting in bed comfortably. His abdominal pain has improved and he is tolerating PO liquids without any difficulty. No recurrent episodes of vomiting noted. He denies fever/chills, had two semi-formed bowel movements yesterday. Atrial fibrillation Cecal bascule s/p R hemicolectomy Seizure Abdominal pain, pancreatitis - Advance diet to low fat as tolerated - Anti-emetic therapy PRN - Continue with antibiotic therapy as per ID - Currently no indication for drainage of intraabdominal fluid collections, likely secondary to post operative course. Would suggest repeat CT imaging within 1 month to assess for size/stability. - ETOH cessation counseling - No further planned GI intervention, will sign off case. Please reconsult as necessary, thank you.
[2018-01-29 07:35] LABS: ALT/SGPT 36 U/L (21-72); AST/SGOT 25 U/L (17-59); BLOOD UREA NITROGEN 6 mg/dL (9-20); CALCIUM 8.8 mg/dl (8.6-10.4); GFR NON-AFRICAN AMERICAN > 60; LIPASE 441 U/L (23-300)
--- NOTE | 2018-01-29 08:29 | CP.PCM.PN ---
Subjective - Date & Time of Evaluation Date of Evaluation: 01/29/18 Time of Evaluation: 06:30 - Subjective Subjective: Patient seen and examined. No complaints. Denies n/v, abdominal pain. Abdominal site looks clean and non-erythematous. Abdominal dressing removed. Objective - Vital Signs/Intake and Output Vital Signs (last 24 hours): Temp Pulse Resp BP Pulse Ox 98.6 F 72 20 116/62 95 01/28/18 23:10 01/29/18 00:15 01/28/18 23:10 01/28/18 23:10 01/28/18 23:10 Intake and Output: 01/29/18 01/29/18 06:59 18:59 Intake Total 2480 Output Total 500 Balance 1979 - Medications Medications: Current Medications Al Hydrox/Mg Hydrox/Simethicone (Maalox 30 Ml) 30 ml PO Q8 PRN PRN Reason: Indigestion / Heartburn Last Admin: 01/27/18 15:54 Dose: 30 ml Diltiazem HCl (Cardizem Cd) 240 mg PO DAILY [facility] Last Admin: 01/28/18 14:25 Dose: 240 mg Lactated Ringer's (Lactated Ringer's) 1,000 mls @ 150 mls/hr IV .Q6H40M [facility] Last Admin: 01/29/18 05:00 Dose: Not Given Cefepime HCl 1 gm/ Dextrose 50 mls @ 100 mls/hr IVPB Q8H XU PRN Reason: Protocol Last Admin: 01/29/18 03:47 Dose: 100 mls/hr Vancomycin HCl 1,000 mg/ (Sodium Chloride) 200 mls @ 133.333 mls/hr IVPB Q12H [facility] PRN Reason: Protocol Last Admin: 01/29/18 06:04 Dose: 133.333 mls/hr Morphine Sulfate (Morphine) 1 mg IVP Q6H PRN PRN Reason: Pain, severe (8-10) Ondansetron HCl (Zofran Inj) 4 mg IVP Q6H PRN PRN Reason: Nausea/Vomiting Last Admin: 01/28/18 06:01 Dose: 4 mg Thiamine HCl (Vitamin B1 Inj) 100 mg IV DAILY [facility] Last Admin: 01/28/18 11:00 Dose: 100 mg - Labs Labs: 01/29/18 06:33 01/29/18 06:33 - Constitutional Appears: No Acute Distress - Head Exam Head Exam: NORMOCEPHALIC - Eye Exam Eye Exam: Normal appearance - ENT Exam ENT Exam: Mucous Membranes Moist - Respiratory Exam Respiratory Exam: NORMAL BREATHING PATTERN - Cardiovascular Exam Cardiovascular Exam: +S1, +S2 - GI/Abdominal Exam GI & Abdominal Exam: Soft - Neurological Exam Neurological Exam: Alert, Awake, Oriented x3 - Psychiatric Exam Psychiatric exam: Normal Mood - Skin Skin Exam: Dry, Intact, Warm Assessment and Plan - Assessment and Plan (Free Text) Assessment: 62M with abdominal wound infection - resolved Plan: ADAT No further surgical intervention required Reconsult as needed Further recs per Dr. Damon Bull PGY3
[2018-01-29] MEDS: Thiamine 100 mg/ml Inj IV SCH (09:42)
[2018-01-29] MEDS: diltiaZEM 240 mg/24 Hours CD Cap PO SCH (09:42)
--- NOTE | 2018-01-29 09:57 | CP.PCM.PN ---
Subjective - Date & Time of Evaluation Date of Evaluation: 01/29/18 Time of Evaluation: 09:57 - Subjective Subjective: Progress note dictated #[id number] Objective - Vital Signs/Intake and Output Vital Signs (last 24 hours): Temp Pulse Resp BP Pulse Ox 98.6 F 72 20 116/62 95 01/28/18 23:10 01/29/18 00:15 01/28/18 23:10 01/28/18 23:10 01/28/18 23:10 Intake and Output: 01/29/18 01/29/18 06:59 18:59 Intake Total 2480 Output Total 500 Balance 1979 - Medications Medications: Current Medications Al Hydrox/Mg Hydrox/Simethicone (Maalox 30 Ml) 30 ml PO Q8 PRN PRN Reason: Indigestion / Heartburn Last Admin: 01/27/18 15:54 Dose: 30 ml Diltiazem HCl (Cardizem Cd) 240 mg PO DAILY [facility] Last Admin: 01/29/18 09:42 Dose: 240 mg Lactated Ringer's (Lactated Ringer's) 1,000 mls @ 150 mls/hr IV .Q6H40M [facility] Last Admin: 01/29/18 05:00 Dose: Not Given Cefepime HCl 1 gm/ Dextrose 50 mls @ 100 mls/hr IVPB Q8H [facility] PRN Reason: Protocol Last Admin: 01/29/18 03:47 Dose: 100 mls/hr Vancomycin HCl 1,000 mg/ (Sodium Chloride) 200 mls @ 133.333 mls/hr IVPB Q12H [facility] PRN Reason: Protocol Last Admin: 01/29/18 06:04 Dose: 133.333 mls/hr Morphine Sulfate (Morphine) 1 mg IVP Q6H PRN PRN Reason: Pain, severe (8-10) Ondansetron HCl (Zofran Inj) 4 mg IVP Q6H PRN PRN Reason: Nausea/Vomiting Last Admin: 01/28/18 06:01 Dose: 4 mg Thiamine HCl (Vitamin B1 Inj) 100 mg IV DAILY [facility] Last Admin: 01/29/18 09:42 Dose: 100 mg - Labs Labs: 01/29/18 06:33 01/29/18 06:33
--- NOTE | 2018-01-29 19:44 | CP.PCM.PN ---
Subjective - Date & Time of Evaluation Date of Evaluation: 01/29/18 Time of Evaluation: 19:39 - Subjective Subjective: present findings are that of small multiloculated cyst, probably result of recent pancreatitis. Patient is now comfotable and is tolerating feedings and is having bms. I am inclined to leave possible pseudocysta alone. the are small and will probably resolve i time as expected of small size cyst, Will follow Objective - Vital Signs/Intake and Output Vital Signs (last 24 hours): Temp Pulse Resp BP Pulse Ox 98.4 F 81 20 112/68 97 01/29/18 15:00 01/29/18 16:00 01/29/18 15:00 01/29/18 15:00 01/29/18 15:00 Intake and Output: 01/29/18 01/30/18 18:59 06:59 Intake Total 1325 Balance 1325 - Medications Medications: Current Medications Al Hydrox/Mg Hydrox/Simethicone (Maalox 30 Ml) 30 ml PO Q8 PRN PRN Reason: Indigestion / Heartburn Last Admin: 01/27/18 15:54 Dose: 30 ml Diltiazem HCl (Cardizem Cd) 240 mg PO DAILY [facility] Last Admin: 01/29/18 09:42 Dose: 240 mg Lactated Ringer's (Lactated Ringer's) 1,000 mls @ 150 mls/hr IV .Q6H40M [facility] Last Admin: 01/29/18 12:18 Dose: Not Given Cefepime HCl 1 gm/ Dextrose 50 mls @ 100 mls/hr IVPB Q8H XU PRN Reason: Protocol Last Admin: 01/29/18 11:40 Dose: 100 mls/hr Vancomycin HCl 1,000 mg/ (Sodium Chloride) 200 mls @ 133.333 mls/hr IVPB Q12H XU PRN Reason: Protocol Last Admin: 01/29/18 06:04 Dose: 133.333 mls/hr Morphine Sulfate (Morphine) 1 mg IVP Q6H PRN PRN Reason: Pain, severe (8-10) Ondansetron HCl (Zofran Inj) 4 mg IVP Q6H PRN PRN Reason: Nausea/Vomiting Last Admin: 01/28/18 06:01 Dose: 4 mg Thiamine HCl (Vitamin B1 Inj) 100 mg IV DAILY [facility] Last Admin: 01/29/18 09:42 Dose: 100 mg - Labs Labs: 01/29/18 06:33 01/29/18 06:33
--- NOTE | 2018-01-30 00:52 | CP.PCM.PN ---
Subjective - Date & Time of Evaluation Date of Evaluation: 01/30/18 Time of Evaluation: 00:49 - Subjective Subjective: Paged by nurse, patient having multiple bouts of bilious emesis. Examined patient. Abdomen is soft and non-distended. Patient NPO for now. Currently refusing NG tube insertion. States he wants to hold off with NG insertion for now as he is feeling better after vomiting. Will continue to monitor. Objective - Vital Signs/Intake and Output Vital Signs (last 24 hours): Temp Pulse Resp BP Pulse Ox 98.4 F 81 20 112/68 97 01/29/18 15:00 01/29/18 16:00 01/29/18 15:00 01/29/18 15:00 01/29/18 15:00 Intake and Output: 01/29/18 01/30/18 18:59 06:59 Intake Total 1325 1620 Output Total 400 Balance 1325 1220 - Medications Medications: Current Medications Al Hydrox/Mg Hydrox/Simethicone (Maalox 30 Ml) 30 ml PO Q8 PRN PRN Reason: Indigestion / Heartburn Last Admin: 01/27/18 15:54 Dose: 30 ml Diltiazem HCl (Cardizem Cd) 240 mg PO DAILY [facility] Last Admin: 01/29/18 09:42 Dose: 240 mg Heparin Sodium (Porcine) (Heparin) 5,000 units SC Q12 [facility] Last Admin: 01/29/18 22:18 Dose: 5,000 units Lactated Ringer's (Lactated Ringer's) 1,000 mls @ 150 mls/hr IV .Q6H40M [facility] Last Admin: 01/29/18 18:30 Dose: Not Given Cefepime HCl 1 gm/ Dextrose 50 mls @ 100 mls/hr IVPB Q8H XU PRN Reason: Protocol Last Admin: 01/29/18 19:41 Dose: 100 mls/hr Vancomycin HCl 1,000 mg/ (Sodium Chloride) 200 mls @ 133.333 mls/hr IVPB Q12H XU PRN Reason: Protocol Last Admin: 01/29/18 19:43 Dose: 133.333 mls/hr Morphine Sulfate (Morphine) 1 mg IVP Q6H PRN PRN Reason: Pain, severe (8-10) Ondansetron HCl (Zofran Inj) 4 mg IVP Q6H PRN PRN Reason: Nausea/Vomiting Last Admin: 01/29/18 20:51 Dose: 4 mg Thiamine HCl (Vitamin B1 Inj) 100 mg IV DAILY [facility] Last Admin: 01/29/18 09:42 Dose: 100 mg - Labs Labs: 01/29/18 06:33 01/29/18 06:33
[2018-01-30] MEDS: Lactated Ringer's 1,000 ML IV SCH ×5 (01:00→21:30)
--- NOTE | 2018-01-30 01:59 | PN ---
DATE: 01/29/2018 SUBJECTIVE: The patient was seen and examined at bedside. The patient is feeling much better. Denies any abdominal discomfort. Denies any vomiting overnight. Tolerating liquid diet. Complaining of hiccups intermittently. All other systems reviewed and were found to be negative. PHYSICAL EXAMINATION: GENERAL: A middle-aged male, lying in bed, in no acute distress. VITAL SIGNS: Blood pressure 112/68, pulse 101, respirations 20, temperature 98.4 degrees Fahrenheit, O2 saturation is 97% on room air. HEENT: Pupils equal, round, and reacting to light and accommodation. Extraocular muscles intact. No icterus. No pallor. No oral thrush. No pharyngeal congestion. NECK: Supple. No JVD. LUNGS: Bilateral vesicular breath sounds. No wheezing. No rhonchi. CVS: S1 and S2 present, regular. ABDOMEN: Soft. Bowel sounds present. Decreased purulent discharge from the incision site. Redness improved. No guarding. No rigidity. No rebound tenderness noted. 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 No focal deficits noted. EXTREMITIES: No edema. Palpable peripheral pulses. MEDICATIONS: Include Maalox as needed, cefepime 1 g IV every 8 hours, Cardizem 240 mg p.o. daily, Ringer's lactate 150 mL an hour, Motrin 1 mg IV push every 6 hours p.r.n., Zofran 4 mg IV push as needed, thiamine 100 mg IV push daily, and vancomycin 1 g IV every 12 hours. LABORATORY DATA: Labs from this morning: WBC 11.1, hemoglobin 11.3, hematocrit 33.9, platelets 474. Sodium 136, potassium 3.8, chloride 100, bicarbonate 27, BUN 6, creatinine 0.6, glucose 109, calcium 8.8, phosphorus 3.7, magnesium 2.1. AST 25, ALT 36, alkaline phosphatase 83, total protein 6, albumin 3, lipase 441. ASSESSMENT AND PLAN: A middle-aged male with past medical history of chronic low back pain, on multiple pain medications, admitted for witnessed seizure, status post exploratory laparotomy and right hemicolectomy prior to admission with wound infection, wound culture positive for multiple organisms, developed paroxysmal atrial fibrillation, status post altered mental status, electrolyte abnormality. CT consistent with intraabdominal loculated fluid collection and early acute pancreatitis, probably secondary to recent surgery. Surgical input appreciated. Surgery is not recommending any intervention at this point. Recommended to continue with antibiotics. On cefepime and vancomycin. We will follow up with Dr. Sommers regarding the length of IV antibiotics. Discussed with licensed master social worker for possible subacute rehabilitation placement. We will advance diet as tolerated, on intravenous fluids. I will give one dose of Thorazine for hiccups. Continue with gastrointestinal and deep venous thrombosis prophylaxes. The patient remains in sinus rhythm. Jyothi Jeronimo MD
[2018-01-30 08:06] LABS: BASO # 0.1 K/uL (0.0-0.2); BASO % 0.8 % (0.0-2.0); EOS % 0.2 % (0.0-4.0); HEMOGLOBIN 11.5 g/dL (12.0-18.0); LYMPH # 1.3 K/uL (1.0-4.3); MEAN CELL VOLUME 93.1 fL (80.0-94.0); MEAN CORPUSCULAR HEMOGLOBIN 31.6 pg (27.0-31.0); MEAN CORPUSCULAR HGB CONC 33.9 g/dL (33.0-37.0); MEAN PLATELET VOLUME 9.3 fL (7.2-11.7); MONO # 0.9 K/uL (0.0-0.8); MONO % 7.5 % (0.0-10.0); NEUT # 10.3 K/uL (1.8-7.0); NEUT % 81.5 % (50.0-75.0); RBC 3.64 Mil/uL (4.40-5.90); RED CELL DISTRIBUTION WIDTH 13.9 % (11.5-14.5); WHITE BLOOD COUNT 12.6 K/uL (4.8-10.8)
--- NOTE | 2018-01-30 08:07 | CP.PCM.PN ---
Subjective - Date & Time of Evaluation Date of Evaluation: 01/30/18 Time of Evaluation: 07:58 - Subjective Subjective: PGY-1 gen surgery note for Dr Jose service Patient is seen and examined at bedside. Patient states he vomited "too much" last night. Patient denies recent vomiting recently. Patient denies abdominal pain. Objective - Vital Signs/Intake and Output Vital Signs (last 24 hours): Temp Pulse Resp BP Pulse Ox 98.1 F 85 20 115/69 95 01/29/18 23:00 01/30/18 04:00 01/29/18 23:00 01/29/18 23:00 01/29/18 23:00 Intake and Output: 01/30/18 01/30/18 06:59 18:59 Intake Total 1620 Output Total 400 Balance 1220 - Medications Medications: Current Medications Al Hydrox/Mg Hydrox/Simethicone (Maalox 30 Ml) 30 ml PO Q8 PRN PRN Reason: Indigestion / Heartburn Last Admin: 01/27/18 15:54 Dose: 30 ml Diltiazem HCl (Cardizem Cd) 240 mg PO DAILY [facility] Last Admin: 01/29/18 09:42 Dose: 240 mg Heparin Sodium (Porcine) (Heparin) 5,000 units SC Q12 [facility] Last Admin: 01/29/18 22:18 Dose: 5,000 units Lactated Ringer's (Lactated Ringer's) 1,000 mls @ 150 mls/hr IV .Q6H40M [facility] Last Admin: 01/30/18 01:00 Dose: Not Given Cefepime HCl 1 gm/ Dextrose 50 mls @ 100 mls/hr IVPB Q8H [facility] PRN Reason: Protocol Last Admin: 01/30/18 03:54 Dose: 100 mls/hr Vancomycin HCl 1,000 mg/ (Sodium Chloride) 200 mls @ 133.333 mls/hr IVPB Q12H [facility] PRN Reason: Protocol Last Admin: 01/30/18 07:41 Dose: 133.333 mls/hr Morphine Sulfate (Morphine) 1 mg IVP Q6H PRN PRN Reason: Pain, severe (8-10) Ondansetron HCl (Zofran Inj) 4 mg IVP Q6H PRN PRN Reason: Nausea/Vomiting Last Admin: 01/30/18 03:53 Dose: 4 mg Thiamine HCl (Vitamin B1 Inj) 100 mg IV DAILY [facility] Last Admin: 01/29/18 09:42 Dose: 100 mg - Labs Labs: 01/29/18 06:33 01/29/18 06:33 - Constitutional Appears: Non-toxic, No Acute Distress - Head Exam Head Exam: ATRAUMATIC, NORMAL INSPECTION, NORMOCEPHALIC - Eye Exam Eye Exam: EOMI, Normal appearance - ENT Exam ENT Exam: Mucous Membranes Moist, Normal Exam - Neck Exam Neck Exam: Full ROM - Respiratory Exam Respiratory Exam: NORMAL BREATHING PATTERN. absent: Accessory Muscle Use, Respiratory Distress - GI/Abdominal Exam GI & Abdominal Exam: Soft. absent: Distended, Guarding, Tenderness - Extremities Exam Extremities Exam: Full ROM, Normal Inspection - Back Exam Back Exam: NORMAL INSPECTION - Neurological Exam Neurological Exam: Alert, Awake, Oriented x3 - Psychiatric Exam Psychiatric exam: Normal Affect, Normal Mood - Skin Skin Exam: Intact, Normal Color, Warm Assessment and Plan - Assessment and Plan (Free Text) Assessment: 62 yo M with vomiting yesterday, CT scan on 01/26 showing acute pancreatitis and pseudocyst formation Plan: -Patient to remain NPO -Continue IVF -Will continue to monitor -Continue management as per primary physician -will discuss with Dr Damon Bacon, PGY-1
[2018-01-30 08:32] LABS: ALBUMIN 3.1 g/dL (3.5-5.0); ALT/SGPT 38 U/L (21-72); AST/SGOT 21 U/L (17-59); BLOOD UREA NITROGEN 9 mg/dL (9-20); GFR NON-AFRICAN AMERICAN > 60; LIPASE 326 U/L (23-300)
--- NOTE | 2018-01-30 08:51 | RAD ---
Date of service: 01/30/2018 HISTORY: intractable vomiting COMPARISON: No prior. FINDINGS: BOWEL: Normal. No obstruction. No free air. BONES: Lumbar spinal fixation at L5-S1. OTHER FINDINGS: None. IMPRESSION: No active disease.
[2018-01-30] MEDS: Thiamine 100 mg/ml Inj IV SCH (09:22)
[2018-01-30] MEDS: diltiaZEM 240 mg/24 Hours CD Cap PO SCH (09:22)
--- NOTE | 2018-01-30 10:11 | CP.PCM.PN ---
Subjective - Date & Time of Evaluation Date of Evaluation: 01/30/18 Time of Evaluation: 10:11 - Subjective Subjective: Progress note dictated #[id number] Objective - Vital Signs/Intake and Output Vital Signs (last 24 hours): Temp Pulse Resp BP Pulse Ox 98.4 F 80 18 104/64 97 01/30/18 07:59 01/30/18 07:59 01/30/18 07:59 01/30/18 07:59 01/30/18 07:59 Intake and Output: 01/30/18 01/30/18 06:59 18:59 Intake Total 1620 Output Total 400 Balance 1220 - Medications Medications: Current Medications Al Hydrox/Mg Hydrox/Simethicone (Maalox 30 Ml) 30 ml PO Q8 PRN PRN Reason: Indigestion / Heartburn Last Admin: 01/27/18 15:54 Dose: 30 ml Diltiazem HCl (Cardizem Cd) 240 mg PO DAILY [facility] Last Admin: 01/30/18 09:22 Dose: 240 mg Heparin Sodium (Porcine) (Heparin) 5,000 units SC Q12 [facility] Last Admin: 01/30/18 09:22 Dose: 5,000 units Lactated Ringer's (Lactated Ringer's) 1,000 mls @ 150 mls/hr IV .Q6H40M [facility] Last Admin: 01/30/18 09:21 Dose: 150 mls/hr Cefepime HCl 1 gm/ Dextrose 50 mls @ 100 mls/hr IVPB Q8H [facility] PRN Reason: Protocol Last Admin: 01/30/18 03:54 Dose: 100 mls/hr Vancomycin HCl 1,000 mg/ (Sodium Chloride) 200 mls @ 133.333 mls/hr IVPB Q12H XU PRN Reason: Protocol Last Admin: 01/30/18 07:41 Dose: 133.333 mls/hr Metoclopramide HCl (Reglan) 10 mg IVP Q6 [facility] Morphine Sulfate (Morphine) 1 mg IVP Q6H PRN PRN Reason: Pain, severe (8-10) Ondansetron HCl (Zofran Inj) 4 mg IVP Q6H PRN PRN Reason: Nausea/Vomiting Last Admin: 01/30/18 03:53 Dose: 4 mg Thiamine HCl (Vitamin B1 Inj) 100 mg IV DAILY [facility] Last Admin: 01/30/18 09:22 Dose: 100 mg - Labs Labs: 01/30/18 07:42 01/30/18 07:42
[2018-01-30] MEDS: Aluminum Hydroxide/Magnesium Hydroxide Susp (30 mL) PO PRN (11:54)
--- NOTE | 2018-01-30 19:07 | CP.PCM.PN ---
Subjective - Date & Time of Evaluation Date of Evaluation: 01/30/18 Time of Evaluation: 08:00 - Subjective Subjective: no fever c/o vomiting Objective - Vital Signs/Intake and Output Vital Signs (last 24 hours): Temp Pulse Resp BP Pulse Ox 98.2 F 85 20 120/70 96 01/30/18 15:40 01/30/18 15:40 01/30/18 15:40 01/30/18 15:40 01/30/18 15:40 - Medications Medications: Current Medications Al Hydrox/Mg Hydrox/Simethicone (Maalox 30 Ml) 30 ml PO Q8 PRN PRN Reason: Indigestion / Heartburn Last Admin: 01/30/18 11:54 Dose: 30 ml Diltiazem HCl (Cardizem Cd) 240 mg PO DAILY [facility] Last Admin: 01/30/18 09:22 Dose: 240 mg Heparin Sodium (Porcine) (Heparin) 5,000 units SC Q12 [facility] Last Admin: 01/30/18 09:22 Dose: 5,000 units Lactated Ringer's (Lactated Ringer's) 1,000 mls @ 150 mls/hr IV .Q6H40M [facility] Last Admin: 01/30/18 16:58 Dose: 150 mls/hr Cefepime HCl 1 gm/ Dextrose 50 mls @ 100 mls/hr IVPB Q8H XU PRN Reason: Protocol Last Admin: 01/30/18 12:02 Dose: 100 mls/hr Vancomycin HCl 1,000 mg/ (Sodium Chloride) 200 mls @ 133.333 mls/hr IVPB Q12H XU PRN Reason: Protocol Last Admin: 01/30/18 07:41 Dose: 133.333 mls/hr Metoclopramide HCl (Reglan) 10 mg IVP Q6 [facility] Last Admin: 01/30/18 18:57 Dose: 10 mg Morphine Sulfate (Morphine) 1 mg IVP Q6H PRN PRN Reason: Pain, severe (8-10) Ondansetron HCl (Zofran Inj) 4 mg IVP Q6H PRN PRN Reason: Nausea/Vomiting Last Admin: 01/30/18 03:53 Dose: 4 mg Thiamine HCl (Vitamin B1 Inj) 100 mg IV DAILY [facility] Last Admin: 01/30/18 09:22 Dose: 100 mg - Labs Labs: 01/30/18 07:42 01/30/18 07:42 - Constitutional Appears: Non-toxic, Chronically Ill - Head Exam Head Exam: NORMOCEPHALIC - Eye Exam Eye Exam: PERRL - ENT Exam ENT Exam: Mucous Membranes Dry - Neck Exam Neck Exam: absent: Lymphadenopathy - Respiratory Exam Respiratory Exam: Decreased Breath Sounds - Cardiovascular Exam Cardiovascular Exam: REGULAR RHYTHM - GI/Abdominal Exam GI & Abdominal Exam: Distended, Soft, Tenderness - Rectal Exam Rectal Exam: Deferred - Exam Exam: NORMAL INSPECTION Assessment and Plan (1) Paroxysmal atrial fibrillation Status: Acute (2) Seizure Status: Acute (3) Abdominal pain Status: Acute - Assessment and Plan (Free Text) Assessment: drainage less cont iv antibiotics surgical re-eval
--- NOTE | 2018-01-31 00:46 | PN ---
DATE: 01/30/2018 SUBJECTIVE: The patient was seen and examined at bedside. The patient had multiple episodes of vomiting overnight. The patient was kept n.p.o. Denies any abdominal pain. Feeling nauseous at the moment. Refused NG tube placement. Complaining of sore throat from vomiting and from NG tube placement trials. Denies any chest pain. Denies any other complaints. PHYSICAL EXAMINATION: GENERAL: Middle-aged male, lying in bed, in no acute distress. VITAL SIGNS: Blood pressure 104/64, pulse 80, respirations 18, temperature 98.4 degrees Fahrenheit, O2 saturation 97% on room air. HEENT: Pupils equal, round and reacting to light and accommodation. Extraocular muscles intact. No icterus. No pallor. No oral thrush. No pharyngeal congestion. NECK: Supple. No JVD. LUNGS: Bilateral vesicular breath sounds. No wheezing. No rhonchi. CARDIOVASCULAR SYSTEM: S1 and S2 present, regular. ABDOMEN: Decreasing purulent discharge. Soft. Bowel sounds present. No guarding. No rigidity. No rebound tenderness noted. CENTRAL NERVOUS SYSTEM: Alert, awake, and oriented x3. No focal deficits noted. EXTREMITIES: No edema. Palpable peripheral pulses. MEDICATIONS: Include Maalox 30 mL as needed, Cefepime 1 g IV every 8 hours, Cardizem 240 mg p.o. daily, heparin 5000 units subcu every 12 hours, Ringer's lactate 150 mL/hour, Reglan 10 mg IV push every 6 hours, morphine 1 mg IV push every 6 hours as needed, Zofran 4 mg IV push every 6 hours p.r.n., thiamine 100 mg IV daily, vancomycin 1 g IV every 12 hours. LABORATORY DATA: Labs from this morning: WBC 12.6, hemoglobin 11.5, hematocrit 33.9, platelets 474. Sodium 136, potassium 3.8, chloride 99, bicarb 25, BUN 9, creatinine 0.6, glucose 126, calcium 9, phosphorus 4.1, magnesium 1.9. Total bili 0.5, AST 21, ALT 38, alkaline phosphatase 70, total protein 6.3, albumin 3.1, lipase 326. Abdominal x-ray negative for any obstruction. ASSESSMENT AND PLAN: Middle-aged male with history of chronic low back pain, on multiple pain medications, admitted for witnessed seizure who underwent exploratory laparotomy and right hemicolectomy with wound infection, status post multiple episodes of vomiting, paroxysmal atrial fibrillation, acute pancreatitis, intra-abdominal fluid collections. Surgery is not recommending any further surgical intervention at this time. The patient is kept nothing by mouth. We will give Reglan as ordered. We will continue with current antibiotics. Continue with intravenous fluids. We will follow up with Surgery. Continue with other supportive care. Jyothi Jeronimo MD
[2018-01-31] MEDS: Lactated Ringer's 1,000 ML IV SCH ×2 (04:36→11:01)
--- NOTE | 2018-01-31 07:21 | CP.PCM.PN ---
Subjective - Date & Time of Evaluation Date of Evaluation: 01/31/18 Time of Evaluation: 07:20 - Subjective Subjective: General surgery progress note for Dr. Medina Casey, PGY-2 Pt S & E at bedside at 0630 Pt reports multiple bouts of emesis into towel overnight. Ab pain well controlled. Pt reports having similar emesis problems at different hospital resolved on it's own after pt had a diet. Pt asking for diet. Denies F & C, other complaints. Objective - Vital Signs/Intake and Output Vital Signs (last 24 hours): Temp Pulse Resp BP Pulse Ox 98.1 F 94 H 20 122/69 98 01/30/18 23:10 01/31/18 04:00 01/30/18 23:10 01/30/18 23:10 01/30/18 23:10 Intake and Output: 01/31/18 01/31/18 06:59 18:59 Intake Total 2250 Balance 2250 - Medications Medications: Current Medications Al Hydrox/Mg Hydrox/Simethicone (Maalox 30 Ml) 30 ml PO Q8 PRN PRN Reason: Indigestion / Heartburn Last Admin: 01/30/18 11:54 Dose: 30 ml Diltiazem HCl (Cardizem Cd) 240 mg PO DAILY [facility] Last Admin: 01/30/18 09:22 Dose: 240 mg Heparin Sodium (Porcine) (Heparin) 5,000 units SC Q12 [facility] Last Admin: 01/30/18 21:41 Dose: 5,000 units Lactated Ringer's (Lactated Ringer's) 1,000 mls @ 150 mls/hr IV .Q6H40M [facility] Last Admin: 01/31/18 04:36 Dose: Not Given Cefepime HCl 1 gm/ Dextrose 50 mls @ 100 mls/hr IVPB Q8H XU PRN Reason: Protocol Last Admin: 01/31/18 03:12 Dose: 100 mls/hr Vancomycin HCl 1,000 mg/ (Sodium Chloride) 200 mls @ 133.333 mls/hr IVPB Q12H XU PRN Reason: Protocol Last Admin: 01/31/18 06:16 Dose: 133.333 mls/hr Metoclopramide HCl (Reglan) 10 mg IVP Q6 [facility] Last Admin: 01/31/18 05:26 Dose: 10 mg Morphine Sulfate (Morphine) 1 mg IVP Q6H PRN PRN Reason: Pain, severe (8-10) Ondansetron HCl (Zofran Inj) 4 mg IVP Q6H PRN PRN Reason: Nausea/Vomiting Last Admin: 01/30/18 03:53 Dose: 4 mg Thiamine HCl (Vitamin B1 Inj) 100 mg IV DAILY [facility] Last Admin: 01/30/18 09:22 Dose: 100 mg - Labs Labs: 01/30/18 07:42 01/30/18 07:42 - Constitutional Appears: Non-toxic, No Acute Distress - Head Exam Head Exam: ATRAUMATIC, NORMAL INSPECTION, NORMOCEPHALIC - Eye Exam Eye Exam: EOMI, Normal appearance - ENT Exam ENT Exam: Mucous Membranes Moist, Normal Exam - Neck Exam Neck Exam: Full ROM, Normal Inspection - Respiratory Exam Respiratory Exam: NORMAL BREATHING PATTERN - Cardiovascular Exam Cardiovascular Exam: REGULAR RHYTHM, +S1, +S2 - GI/Abdominal Exam GI & Abdominal Exam: Soft. absent: Distended, Firm, Tenderness Additional comments: midline dressing in place- clean/dry/intact - Extremities Exam Extremities Exam: Normal Inspection - Neurological Exam Neurological Exam: Alert, Awake, CN II-XII Intact, Oriented x3 - Psychiatric Exam Psychiatric exam: Normal Affect, Normal Mood - Skin Skin Exam: Dry, Intact, Normal Color, Warm Assessment and Plan - Assessment and Plan (Free Text) Assessment: 62M w/pancreatitis, intractable emesis Plan: Cont anti-emetic Pt refusing NGT insertion NPO for now IVF Pain control Monitor Will ROBERTO Casey, PGY-2
[2018-01-31] MEDS: Thiamine 100 mg/ml Inj IV SCH (09:39)
[2018-01-31] MEDS: diltiaZEM 240 mg/24 Hours CD Cap PO SCH (09:39)
--- NOTE | 2018-01-31 10:45 | CP.PCM.PN ---
Subjective - Date & Time of Evaluation Date of Evaluation: 01/31/18 Time of Evaluation: 10:45 - Subjective Subjective: Progress note dictated #[id number] Objective - Vital Signs/Intake and Output Vital Signs (last 24 hours): Temp Pulse Resp BP Pulse Ox 98.3 F 91 H 20 134/64 97 01/31/18 07:20 01/31/18 07:30 01/31/18 07:20 01/31/18 07:20 01/31/18 07:20 Intake and Output: 01/31/18 01/31/18 06:59 18:59 Intake Total 2250 Balance 2250 - Medications Medications: Current Medications Al Hydrox/Mg Hydrox/Simethicone (Maalox 30 Ml) 30 ml PO Q8 PRN PRN Reason: Indigestion / Heartburn Last Admin: 01/30/18 11:54 Dose: 30 ml Diltiazem HCl (Cardizem Cd) 240 mg PO DAILY [facility] Last Admin: 01/31/18 09:39 Dose: 240 mg Heparin Sodium (Porcine) (Heparin) 5,000 units SC Q12 [facility] Last Admin: 01/31/18 09:39 Dose: 5,000 units Lactated Ringer's (Lactated Ringer's) 1,000 mls @ 150 mls/hr IV .Q6H40M [facility] Last Admin: 01/31/18 04:36 Dose: Not Given Cefepime HCl 1 gm/ Dextrose 50 mls @ 100 mls/hr IVPB Q8H [facility] PRN Reason: Protocol Last Admin: 01/31/18 03:12 Dose: 100 mls/hr Vancomycin HCl 1,000 mg/ (Sodium Chloride) 200 mls @ 133.333 mls/hr IVPB Q12H XU PRN Reason: Protocol Last Admin: 01/31/18 06:16 Dose: 133.333 mls/hr Metoclopramide HCl (Reglan) 10 mg IVP Q6 [facility] Last Admin: 01/31/18 05:26 Dose: 10 mg Morphine Sulfate (Morphine) 1 mg IVP Q6H PRN PRN Reason: Pain, severe (8-10) Ondansetron HCl (Zofran Inj) 4 mg IVP Q6H PRN PRN Reason: Nausea/Vomiting Last Admin: 01/30/18 03:53 Dose: 4 mg Thiamine HCl (Vitamin B1 Inj) 100 mg IV DAILY [facility] Last Admin: 01/31/18 09:39 Dose: 100 mg - Labs Labs: 01/30/18 07:42 01/30/18 07:42
[2018-01-31 11:17] LABS: C DIFF TOXIN A B NEGATIVE (NEGATIVE)
--- NOTE | 2018-01-31 11:25 | CP.PCM.PCO ---
Physician Communication Note - Physician Communication Note Physician Communication Note: multiple NGT attempts failed - there is obstruction - rec ENT consult
[2018-01-31 12:40] LABS: FECAL LEUKOCYTES NEGATIVE (NEGATIVE)
--- NOTE | 2018-01-31 16:41 | PN ---
DATE: 01/31/2018 SUBJECTIVE: The patient is seen and examined at bedside. The patient is still complaining of multiple episodes of emesis, which is green in color and denied any blood or coffee-ground emesis. He is still complaining of intermittent hiccups. The patient refused NG-tube placement overnight by the Surgical Team, even this morning. Denies any other complaints. PHYSICAL EXAMINATION: GENERAL: A middle-aged male, lying in bed, in no acute distress. VITAL SIGNS: Blood pressure 134/64, pulse 108, respirations 20, temperature 98.3 degrees Fahrenheit, O2 saturations 97% on room air. HEENT: Pupils equal, round, and reacting to light and accommodation. Extraocular muscles intact. No icterus, no pallor, no oral thrush, no pharyngeal congestion. NECK: Supple, no JVD. LUNGS: Bilateral vesicular breath sounds. No wheezing, no rhonchi. CVS: S1 and S2 present, regular. ABDOMEN: Soft, nontender. Bowel sounds present. No guarding, no rigidity, no rebound tenderness noted. The suture site is healing with purulent discharge, which is less than yesterday. LABORATORY DATA: Stool C. diff negative. Vancomycin trough is 8.5. MEDICATIONS: Include Maalox 30 mL as needed, cefepime 1 g IV every 8 hours, Thorazine 25 mg IM every 8 hours p.r.n., Cardizem 240 mg daily, heparin 5000 units subcutaneously every 12 hours, Ringer's lactate 150 mL per hour, Reglan 10 mg IV push every 6 hours, morphine sulfate 1 mg IV push every 6 hours, Zofran 4 mg IV push every 6 hours as needed, thiamine 100 mg daily, and vancomycin 1 g IV every 12 hours. ASSESSMENT AND PLAN: A middle-aged male with past medical history of chronic low back pain, on multiple pain medications, status post exploratory laparotomy with right hemicolectomy, admitted for witnessed seizure, a wound infection with multiple organisms, paroxysmal atrial fibrillation, intrahepatic loculated fluid collections, acute pancreatitis, persistent emesis, and the patient refusing nasogastric tube placement. We will keep the patient n.p.o. Continue with cefepime and vancomycin, continue with intravenous fluids. We will follow up with Surgical Team, give Thorazine for hiccups, and Reglan is added by Surgery. We will add further recommendations as his clinical course progresses. Jyothi Jeronimo MD
[2018-02-01] MEDS: Lactated Ringer's 1,000 ML IV SCH ×4 (03:53→23:15)
--- NOTE | 2018-02-01 07:42 | CP.PCM.PN ---
Subjective - Date & Time of Evaluation Date of Evaluation: 02/01/18 Time of Evaluation: 07:40 - Subjective Subjective: General Surgery: Dr Jose Pt S&E. Continues to have emesis, now including food he ate several days prior. Pt continues to have bowel movements however. Denies f/c, sob or chest pain. He doesn't really seem to feel nauseous, but continues to vomit. On reglan, zofran, thorazine. Previous CT showed massively dilated stomach with no progression of contrast past the pancreas. multiple attempts made to pass NGT yesterday, pt very cooperative, however feels as though there is something obstructive in the oropharynx Objective - Vital Signs/Intake and Output Vital Signs (last 24 hours): Temp Pulse Resp BP Pulse Ox 98.7 F 88 20 118/72 97 01/31/18 23:20 01/31/18 23:30 01/31/18 23:20 01/31/18 23:20 01/31/18 23:20 Intake and Output: 02/01/18 02/01/18 06:59 18:59 Intake Total 1200 Balance 1200 - Medications Medications: Current Medications Al Hydrox/Mg Hydrox/Simethicone (Maalox 30 Ml) 30 ml PO Q8 PRN PRN Reason: Indigestion / Heartburn Last Admin: 01/30/18 11:54 Dose: 30 ml Chlorpromazine (Thorazine) 25 mg IM Q8H PRN PRN Reason: Hiccups Diltiazem HCl (Cardizem Cd) 240 mg PO DAILY [facility] Last Admin: 01/31/18 09:39 Dose: 240 mg Heparin Sodium (Porcine) (Heparin) 5,000 units SC Q12 [facility] Last Admin: 01/31/18 22:14 Dose: 5,000 units Lactated Ringer's (Lactated Ringer's) 1,000 mls @ 150 mls/hr IV .Q6H40M [facility] Last Admin: 02/01/18 03:53 Dose: 150 mls/hr Cefepime HCl 1 gm/ Dextrose 50 mls @ 100 mls/hr IVPB Q8H [facility] PRN Reason: Protocol Last Admin: 02/01/18 03:50 Dose: 100 mls/hr Vancomycin HCl 1,000 mg/ (Sodium Chloride) 200 mls @ 133.333 mls/hr IVPB Q12H [facility] PRN Reason: Protocol Last Admin: 02/01/18 06:00 Dose: 133.333 mls/hr Metoclopramide HCl (Reglan) 10 mg IVP Q6 [facility] Last Admin: 02/01/18 05:22 Dose: 10 mg Ondansetron HCl (Zofran Inj) 4 mg IVP Q6H PRN PRN Reason: Nausea/Vomiting Last Admin: 01/30/18 03:53 Dose: 4 mg Thiamine HCl (Vitamin B1 Inj) 100 mg IV DAILY [facility] Last Admin: 01/31/18 09:39 Dose: 100 mg - Labs Labs: 01/30/18 07:42 01/30/18 07:42 - Constitutional Appears: Non-toxic, Agitated - Eye Exam Eye Exam: Normal appearance. absent: Scleral icterus - Respiratory Exam Respiratory Exam: absent: Respiratory Distress - Cardiovascular Exam Cardiovascular Exam: absent: Tachycardia - GI/Abdominal Exam GI & Abdominal Exam: Firm. absent: Distended, Tenderness Additional comments: abdomen more firm than previous exams, no tenderness, wound is clean - Extremities Exam Extremities Exam: Pedal Edema - Neurological Exam Neurological Exam: Alert, Awake Assessment and Plan - Assessment and Plan (Free Text) Assessment: 62M with complicated hospital course, now with several days of medically resistent emesis Plan: unclear as to etiology of emesis previous CT scan mildly concerning for partially obstructing gastric outlet lesion? consider repeat scan vs upper GI vs EGD cont NPO and IVF will d/w Dr Damon Barajas, PGY4
[2018-02-01] MEDS: Thiamine 100 mg/ml Inj IV SCH (09:25)
[2018-02-01] MEDS: diltiaZEM 240 mg/24 Hours CD Cap PO SCH (09:25)
--- NOTE | 2018-02-01 11:34 | CP.PCM.PN ---
Subjective - Date & Time of Evaluation Date of Evaluation: 02/01/18 Time of Evaluation: 11:30 - Subjective Subjective: informed by nurse that patient has not been able to get oral cardizem because of lack of NGT and NPO status. patient became tachycardic. will give cardizem 10 mg IV push now, then cardizem drip Objective - Vital Signs/Intake and Output Vital Signs (last 24 hours): Temp Pulse Resp BP Pulse Ox 98.0 F 105 H 18 146/71 97 02/01/18 07:25 02/01/18 08:00 02/01/18 07:25 02/01/18 07:25 02/01/18 07:25 Intake and Output: 02/01/18 02/01/18 06:59 18:59 Intake Total 1200 Balance 1200 - Medications Medications: Current Medications Al Hydrox/Mg Hydrox/Simethicone (Maalox 30 Ml) 30 ml PO Q8 PRN PRN Reason: Indigestion / Heartburn Last Admin: 01/30/18 11:54 Dose: 30 ml Chlorpromazine (Thorazine) 25 mg IM Q8H PRN PRN Reason: Hiccups Last Admin: 02/01/18 09:25 Dose: 25 mg Diltiazem HCl (Cardizem Cd) 240 mg PO DAILY [facility] Last Admin: 02/01/18 09:25 Dose: Not Given Diltiazem HCl (Cardizem) 10 mg IVP STAT [facility] Stop: 02/01/18 11:32 Heparin Sodium (Porcine) (Heparin) 5,000 units SC Q12 [facility] Last Admin: 02/01/18 09:24 Dose: 5,000 units Lactated Ringer's (Lactated Ringer's) 1,000 mls @ 150 mls/hr IV .Q6H40M [facility] Last Admin: 02/01/18 03:53 Dose: 150 mls/hr Cefepime HCl 1 gm/ Dextrose 50 mls @ 100 mls/hr IVPB Q8H [facility] PRN Reason: Protocol Last Admin: 02/01/18 03:50 Dose: 100 mls/hr Vancomycin HCl 1,000 mg/ (Sodium Chloride) 200 mls @ 133.333 mls/hr IVPB Q12H [facility] PRN Reason: Protocol Last Admin: 02/01/18 06:00 Dose: 133.333 mls/hr Diltiazem HCl 125 mg/ Dextrose 125 mls @ 5 mls/hr IV .Q24H [facility]; 5 MG/HR PRN Reason: Protocol Metoclopramide HCl (Reglan) 10 mg IVP Q6 [facility] Last Admin: 02/01/18 05:22 Dose: 10 mg Ondansetron HCl (Zofran Inj) 4 mg IVP Q6H PRN PRN Reason: Nausea/Vomiting Last Admin: 02/01/18 07:52 Dose: 4 mg Thiamine HCl (Vitamin B1 Inj) 100 mg IV DAILY [facility] Last Admin: 02/01/18 09:25 Dose: 100 mg - Labs Labs: 01/30/18 07:42 01/30/18 07:42 Assessment and Plan (1) Paroxysmal atrial fibrillation Status: Acute
--- NOTE | 2018-02-01 13:29 | CP.PCM.PN ---
Subjective - Date & Time of Evaluation Date of Evaluation: 02/01/18 Time of Evaluation: 13:29 - Subjective Subjective: Progress note dictated #[id number] Objective - Vital Signs/Intake and Output Vital Signs (last 24 hours): Temp Pulse Resp BP Pulse Ox 98.0 F 123 H 18 118/70 97 02/01/18 07:25 02/01/18 11:47 02/01/18 07:25 02/01/18 11:47 02/01/18 07:25 Intake and Output: 02/01/18 02/01/18 06:59 18:59 Intake Total 1200 Balance 1200 - Medications Medications: Current Medications Al Hydrox/Mg Hydrox/Simethicone (Maalox 30 Ml) 30 ml PO Q8 PRN PRN Reason: Indigestion / Heartburn Last Admin: 01/30/18 11:54 Dose: 30 ml Chlorpromazine (Thorazine) 25 mg IM Q8H PRN PRN Reason: Hiccups Last Admin: 02/01/18 09:25 Dose: 25 mg Diltiazem HCl (Cardizem Cd) 240 mg PO DAILY [facility] Last Admin: 02/01/18 09:25 Dose: Not Given Heparin Sodium (Porcine) (Heparin) 5,000 units SC Q12 [facility] Last Admin: 02/01/18 09:24 Dose: 5,000 units Lactated Ringer's (Lactated Ringer's) 1,000 mls @ 150 mls/hr IV .Q6H40M [facility] Last Admin: 02/01/18 03:53 Dose: 150 mls/hr Vancomycin HCl 1,000 mg/ (Sodium Chloride) 200 mls @ 133.333 mls/hr IVPB Q12H [facility] PRN Reason: Protocol Last Admin: 02/01/18 06:00 Dose: 133.333 mls/hr Diltiazem HCl 125 mg/ Dextrose 125 mls @ 5 mls/hr IV .Q24H [facility]; 5 MG/HR PRN Reason: Protocol Last Admin: 02/01/18 12:51 Dose: 5 mg/hr, 5 mls/hr Metoclopramide HCl (Reglan) 10 mg IVP Q6 [facility] Last Admin: 02/01/18 12:01 Dose: 10 mg Ondansetron HCl (Zofran Inj) 4 mg IVP Q6H PRN PRN Reason: Nausea/Vomiting Last Admin: 02/01/18 07:52 Dose: 4 mg Thiamine HCl (Vitamin B1 Inj) 100 mg IV DAILY [facility] Last Admin: 02/01/18 09:25 Dose: 100 mg - Labs Labs: 01/30/18 07:42 01/30/18 07:42
[2018-02-01] MEDS ORDERED: Iodixanol 320 MG/ML 100 ML BOTTLE IV ONE (16:22)
--- NOTE | 2018-02-01 17:02 | CP.PCM.PN ---
Subjective - Date & Time of Evaluation Date of Evaluation: 02/01/18 Time of Evaluation: 09:00 - Subjective Subjective: still with vomiting and drainage from wound Objective - Vital Signs/Intake and Output Vital Signs (last 24 hours): Temp Pulse Resp BP Pulse Ox 98.0 F 105 H 18 118/70 97 02/01/18 07:25 02/01/18 13:18 02/01/18 07:25 02/01/18 11:47 02/01/18 07:25 Intake and Output: 02/01/18 02/01/18 06:59 18:59 Intake Total 1200 1300 Balance 1200 1300 - Medications Medications: Current Medications Al Hydrox/Mg Hydrox/Simethicone (Maalox 30 Ml) 30 ml PO Q8 PRN PRN Reason: Indigestion / Heartburn Last Admin: 01/30/18 11:54 Dose: 30 ml Chlorpromazine (Thorazine) 25 mg IM Q8H PRN PRN Reason: Hiccups Last Admin: 02/01/18 09:25 Dose: 25 mg Diltiazem HCl (Cardizem Cd) 240 mg PO DAILY [facility] Last Admin: 02/01/18 09:25 Dose: Not Given Heparin Sodium (Porcine) (Heparin) 5,000 units SC Q12 [facility] Last Admin: 02/01/18 09:24 Dose: 5,000 units Vancomycin HCl 1,000 mg/ (Sodium Chloride) 200 mls @ 133.333 mls/hr IVPB Q12H [facility] PRN Reason: Protocol Last Admin: 02/01/18 06:00 Dose: 133.333 mls/hr Lactated Ringer's (Lactated Ringer's) 1,000 mls @ 100 mls/hr IV .Q10H [facility] Last Admin: 02/01/18 14:31 Dose: 100 mls/hr Chromium/Copper/Manganese/Zinc (1 ml/ Amino Acids) 1,001 mls @ 42 mls/hr IV .[id number] ONE Stop: 02/02/18 17:49 Diltiazem HCl 125 mg/ Dextrose 125 mls @ 5 mls/hr IV .Q24H [facility]; 5 MG/HR PRN Reason: Protocol Last Admin: 02/01/18 12:51 Dose: 5 mls/hr Cefepime HCl 1 gm/ Sodium (Chloride) 50 mls @ 100 mls/hr IVPB Q8H [facility] PRN Reason: Protocol Metoclopramide HCl (Reglan) 10 mg IVP Q6 [facility] Last Admin: 02/01/18 12:01 Dose: 10 mg Ondansetron HCl (Zofran Inj) 4 mg IVP Q6H PRN PRN Reason: Nausea/Vomiting Last Admin: 02/01/18 16:35 Dose: 4 mg Thiamine HCl (Vitamin B1 Inj) 100 mg IV DAILY [facility] Last Admin: 02/01/18 09:25 Dose: 100 mg - Labs Labs: 01/30/18 07:42 01/30/18 07:42 - Constitutional Appears: Non-toxic, Chronically Ill - Head Exam Head Exam: NORMOCEPHALIC - Eye Exam Eye Exam: PERRL - ENT Exam ENT Exam: Mucous Membranes Dry - Neck Exam Neck Exam: absent: Lymphadenopathy - Respiratory Exam Respiratory Exam: Decreased Breath Sounds - Cardiovascular Exam Cardiovascular Exam: REGULAR RHYTHM - GI/Abdominal Exam GI & Abdominal Exam: Distended - Rectal Exam Rectal Exam: Deferred - Exam Exam: NORMAL INSPECTION - Extremities Exam Extremities Exam: absent: Pedal Edema - Back Exam Back Exam: absent: CVA tenderness (L), CVA tenderness (R) Assessment and Plan (1) Paroxysmal atrial fibrillation Status: Acute (2) Seizure Status: Acute (3) Abdominal pain Status: Acute - Assessment and Plan (Free Text) Assessment: GI and surgery on board cont IV antibiotics- vanco/ cefepime follow up imaging to see if collection persists
[2018-02-01] MEDS: Cefepime IV 1 gm in Dextrose 1 GM/50 ML BAG IVPB SCH (17:28)
--- NOTE | 2018-02-01 17:41 | CT ---
Date of service: 02/01/2018 PROCEDURE: CT NECK WITH CONTRAST HISTORY: r/o obstruction COMPARISON: None available. TECHNIQUE: CT of the neck with intravenous contrast. Coronal and sagittal reformats generated. Intravenous contrast dose: 30 mL Visipaque 320 Radiation dose: DLP 579.22 mGy-cm This CT exam was performed using one or more of the following dose reduction techniques: Automated exposure control, adjustment of the mA and/or kV according to patient size, and/or use of iterative reconstruction technique. FINDINGS: NASOPHARYNX: No mass or abnormal enhancement. SUPRAHYOID NECK: Evaluation of the oropharynx and base of the tongue is severely limited due to extensive dental amalgam artifacts. Allowing for this there is severe narrowing of the oropharyngeal airway which measures 1.5 mm diameter.. The palatine tonsils are enlarged. The parapharyngeal space and retropharyngeal spaces are normal.. INFRAHYOID NECK: There is no mass or abnormal enhancement in the larynx, hypopharynx, and supraglottic space. Vocal cords intact. MASS: None. GLANDS: Parotid and submandibular glands unremarkable. Normal size thyroid gland, without nodule. LYMPH NODES: Normal. No lymphadenopathy. CERVICAL SPINE: No fracture or focal lesion. VASCULAR STRUCTURES: Unremarkable. OTHER FINDINGS: None. IMPRESSION: Evaluation of the base of the tongue and oropharynx is limited due to extensive dental amalgam artifacts. Allowing for this, apparent enlarged palatine tonsils. Severe narrowing of the oropharyngeal airway which measures 1.5 mm in diameter.
--- NOTE | 2018-02-01 17:59 | CT ---
Date of service: 02/01/2018 PROCEDURE: CT Abdomen and Pelvis with contrast HISTORY: Intractable vomiting and S/p rt hemicolectomy COMPARISON: 01/26/2018. TECHNIQUE: CT scan of the abdomen and pelvis was performed after administration of intravenous contrast. Oral contrast was not administered. Coronal and sagittal reformatted images were obtained. Contrast dose: 70 mL Visipaque Radiation dose: Total exam DLP = 286.96 mGy-cm. This CT exam was performed using one or more of the following dose reduction techniques: Automated exposure control, adjustment of the mA and/or kV according to patient size, and/or use of iterative reconstruction technique. FINDINGS: LOWER THORAX: There is dependent atelectasis in the lung bases. LIVER: Normal in size with homogeneous enhancement. No gross lesion or ductal dilatation. GALLBLADDER AND BILE DUCTS: No calcified gallstones. PANCREAS: Normal in size with homogeneous enhancement. No gross lesion or ductal dilatation. SPLEEN: Normal in size and appearance. ADRENALS: No discrete nodule. KIDNEYS AND URETERS: Normal in size with homogeneous enhancement. No hydronephrosis. No solid mass. VASCULATURE: No aortic aneurysm. BOWEL: The stomach is markedly distended and fluid-filled. The small bowel loops are normal in caliber. Status post right hemicolectomy, there are postsurgical changes of ileotransverse anastomosis. There is left colonic diverticulosis without CT evidence for acute diverticulitis. PERITONEUM: There is small amount of high attenuation complex fluid posterior to the anastomotic site and surrounding the 2nd portion of the duodenum.. There is also small amount of high attenuation fluid in the right perihepatic space. No free air. LYMPH NODES: No enlarged lymph nodes. BLADDER: Unremarkable. REPRODUCTIVE: Unremarkable. BONES: No acute fracture. Status post ACDF at L5-S1. OTHER FINDINGS: None. IMPRESSION: Status post right hemicolectomy and ileotransverse anastomosis, small amount of high-density complex fluid posterior to the anastomotic site and surrounding the 2nd portion of the duodenum is concerning for hemorrhagic fluid. Markedly distended fluid-filled stomach. No evidence for bowel obstruction. Additional comments as described above. Critical findings were discussed with nurse Reynaga on the floor on 02/01/2018 at 5:50 p.m.
[2018-02-01] MEDS ORDERED: PPN #1 IV ONE (18:00)
[2018-02-01] MEDS ORDERED: Lidocaine 2% Jelly (5 ml) TOP ONE (18:56)
[2018-02-01 18:58] LABS: BASO % 0.2 % (0.0-2.0); EOS % 0.2 % (0.0-4.0); HEMOGLOBIN 11.6 g/dL (12.0-18.0); LYMPH # 1.2 K/uL (1.0-4.3); LYMPH % 8.3 % (20.0-40.0); MEAN CELL VOLUME 92.1 fL (80.0-94.0); MEAN CORPUSCULAR HEMOGLOBIN 30.7 pg (27.0-31.0); MEAN CORPUSCULAR HGB CONC 33.4 g/dL (33.0-37.0); MEAN PLATELET VOLUME 8.5 fL (7.2-11.7); MONO # 0.9 K/uL (0.0-0.8); MONO % 6.1 % (0.0-10.0); NEUT # 12.3 K/uL (1.8-7.0); NEUT % 85.2 % (50.0-75.0); PLATELET COUNT 377 K/uL (130-400); RBC 3.79 Mil/uL (4.40-5.90); RED CELL DISTRIBUTION WIDTH 13.8 % (11.5-14.5); WHITE BLOOD COUNT 14.4 K/uL (4.8-10.8)
[2018-02-01] MEDS ORDERED: Benzocaine/Menthol (Cepacol) Lozenge MT ONE (19:00)
[2018-02-01] MEDS ORDERED: HYDROmorphone 0.5 mg/0.5 ml ISec IVP ONE (19:00)
[2018-02-01 19:02] LABS: INR 1.3; PROTHROMBIN TIME 13.7 SECONDS (9.7-12.2)
[2018-02-01 19:09] LABS: ALB/GLOB RATIO 1.1 (1.0-2.1); ALBUMIN 3.1 g/dL (3.5-5.0); ALT/SGPT 28 U/L (21-72); AST/SGOT 21 U/L (17-59); BLOOD UREA NITROGEN 9 mg/dL (9-20); CALCIUM 8.5 mg/dl (8.6-10.4); GFR NON-AFRICAN AMERICAN > 60; LIPASE 652 U/L (23-300)
[2018-02-01 19:23] LABS: LYMPHOCYTE 8 % (20-40); MONOCYTE 3 % (0-10); NEUTROPHIL 89 % (50-75); PLATELET ESTIMATE NORMAL (NORMAL); TOTAL CELLS COUNTED 100
--- NOTE | 2018-02-01 21:48 | PN ---
DATE: 02/01/2018 SUBJECTIVE: The patient was seen and examined at bedside. The patient is still complaining of persistent vomiting and intermittent hiccups. Denies any headache or dizziness. Denies any chest pain. Denies any shortness of breath. Abdominal pain is minimal. Denies any urinary complaints. Denies any leg pains or leg cramps. All other systems reviewed and were found to be negative. PHYSICAL EXAMINATION: GENERAL: Middle-aged male, lying in bed, in no acute distress. VITAL SIGNS: Blood pressure 118/70, pulse 123, respiration 20, temperature 98 degrees Fahrenheit, O2 saturation is 97% on room air. HEENT: Pupils are equal, round, and reactive to light and accommodation. Extraocular muscles intact. No icterus. No pallor. No oral thrush. No pharyngeal congestion. NECK: Supple. No JVD. LUNGS: Bilateral vesicular breath sounds. No wheezing. No rhonchi. CARDIOVASCULAR SYSTEM: S1 and S2 present. Tachycardic. ABDOMEN: Soft. Bowel sounds present. Abdominal incision is healing. Minimal discharge from the wound. No erythema noted. CENTRAL NERVOUS SYSTEM: Alert, awake, and oriented x3. No focal deficits noted. EXTREMITIES: No edema. Palpable peripheral pulses. MEDICATIONS: Include Maalox 30 mL every 8 hours p.r.n., Thorazine 25 mg IM every 8 hours, PPN, Cardizem 240 mg p.o. daily, Cardizem 5 mg per hour, heparin 5000 units subcutaneously every 12 hours, Ringer's lactate 100 mL per hour, Reglan 10 mg IV push every 6 hours, Zofran 4 mg IV push every 6 hours p.r.n., thiamine 100 mg IV daily, and vancomycin 1 g IV every 12 hours. LABORATORY DATA: Stool culture negative for any growth. ASSESSMENT AND PLAN: Middle-aged male with history of chronic low back, status post recent exploratory laparotomy and right hemicolectomy. Admitted for witnessed seizure, status post altered mental status, wound infection with multiple organisms. Repeat CT consistent with acute pancreatitis, infrahepatic loculated fluid collection. The patient developed vomiting and has been persistent over the past 48 hours. Surgery was not able to place a nasogastric tube secondary to resistance as per instructor adjunct surgical technician. We will obtain Ear, Nose and Throat consultation. We will check CT of the neck, CT of the abdomen and pelvis for further evaluation of intractable vomiting. We will continue with Thorazine, Zofran, and Reglan. We will follow up with Gastroenterology. We will repeat labs in the morning. Discussed with instructor adjunct surgical technician on-call. We will follow up with Surgery after the CT is done. The patient developed paroxysmal atrial fibrillation for which he is on intravenous Cardizem. Cardiology input appreciated. We will continue with Cardizem 5 mg per hour. Jyothi Jeronimo MD
[2018-02-02] MEDS: Cefepime IV 1 gm in Dextrose 1 GM/50 ML BAG IVPB SCH ×3 (00:22→17:35)
--- NOTE | 2018-02-02 09:31 | CP.PCM.PN ---
Subjective - Date & Time of Evaluation Date of Evaluation: 02/02/18 Time of Evaluation: 09:27 - Subjective Subjective: General Surgery: Dr Jose Pt S&E. Continues to have intermittent nausea w/ emesis. Has not tolerated any PO intake. Continues to have regular bowel movements. We have been unable to pass NGT, which is consistent with previous admissions. ENT consult is pending, CT shows narrowing of the oropharynx. Abdominal CT concerning for bleeding at the anastomotic site. HgB has been stable. I have asked GI team to please re-evaluate the pt for possible colonoscopy w/ intervention. They would like ENT evaluation and possibly an esophogram w/ small bowel follow through to rule out perforation Pt continues to deny pain. Only complaint is emesis. Every day he asks if he can go home. Objective - Vital Signs/Intake and Output Vital Signs (last 24 hours): Temp Pulse Resp BP Pulse Ox 98.0 F 78 20 132/72 95 02/02/18 07:00 02/02/18 07:00 02/02/18 07:00 02/02/18 07:00 02/02/18 07:00 Intake and Output: 02/02/18 02/02/18 06:59 18:59 Intake Total 636 Output Total 200 Balance 436 - Medications Medications: Current Medications Al Hydrox/Mg Hydrox/Simethicone (Maalox 30 Ml) 30 ml PO Q8 PRN PRN Reason: Indigestion / Heartburn Last Admin: 01/30/18 11:54 Dose: 30 ml Chlorpromazine (Thorazine) 25 mg IM Q8H PRN PRN Reason: Hiccups Last Admin: 02/01/18 09:25 Dose: 25 mg Diltiazem HCl (Cardizem Cd) 240 mg PO DAILY XU Last Admin: 02/01/18 09:25 Dose: Not Given Heparin Sodium (Porcine) (Heparin) 5,000 units SC Q12 XU Last Admin: 02/01/18 21:25 Dose: 5,000 units Vancomycin HCl 1,000 mg/ (Sodium Chloride) 200 mls @ 133.333 mls/hr IVPB Q12H XU PRN Reason: Protocol Last Admin: 02/02/18 06:33 Dose: 133.333 mls/hr Lactated Ringer's (Lactated Ringer's) 1,000 mls @ 100 mls/hr IV .Q10H XU Last Admin: 02/01/18 23:15 Dose: Not Given Chromium/Copper/Manganese/Zinc (1 ml/ Amino Acids) 1,001 mls @ 42 mls/hr IV .[id number] ONE Stop: 02/02/18 17:49 Last Admin: 02/01/18 21:25 Dose: 42 mls/hr Diltiazem HCl 125 mg/ Dextrose 125 mls @ 5 mls/hr IV .Q24H XU; 5 MG/HR PRN Reason: Protocol Last Admin: 02/01/18 12:51 Dose: 5 mls/hr Cefepime HCl (Maxipime Iv 1 Gm Premix) 1 gm in 50 mls @ 100 mls/hr IVPB Q8H XU PRN Reason: Protocol Last Admin: 02/02/18 08:31 Dose: 100 mls/hr Metoclopramide HCl (Reglan) 10 mg IVP Q6 XU Last Admin: 02/02/18 06:32 Dose: 10 mg Ondansetron HCl (Zofran Inj) 4 mg IVP Q6H PRN PRN Reason: Nausea/Vomiting Last Admin: 02/02/18 06:40 Dose: 4 mg Thiamine HCl (Vitamin B1 Inj) 100 mg IV DAILY XU Last Admin: 02/01/18 09:25 Dose: 100 mg - Labs Labs: 02/01/18 18:51 02/01/18 18:51 PT 13.7 SECONDS (9.7-12.2) H 02/01/18 18:51 INR 1.3 02/01/18 18:51 APTT 28 SECONDS (21-34) 02/01/18 18:51 - Constitutional Appears: Non-toxic, No Acute Distress - Eye Exam Eye Exam: absent: Scleral icterus - ENT Exam ENT Exam: Mucous Membranes Dry - Respiratory Exam Respiratory Exam: absent: Accessory Muscle Use, Respiratory Distress - Cardiovascular Exam Cardiovascular Exam: REGULAR RHYTHM. absent: Tachycardia - GI/Abdominal Exam GI & Abdominal Exam: Soft. absent: Distended, Tenderness - Neurological Exam Neurological Exam: Alert, Awake, Oriented x3 - Psychiatric Exam Psychiatric exam: Normal Affect - Skin Skin Exam: Normal Color, Warm Assessment and Plan - Assessment and Plan (Free Text) Assessment: 62M s/p right neil-colectomy w/ multiple post-operative complications Plan: CT scan performed was without IV or PO contrast and did not provide much information Need ENT evaluation for possible oropharynx obstruction pt needs gastric decompression as soon as possible no plans for surgical intervention as there is no clear-cut surgical indication ; additionally pt is non-tender, non-distended if anastomosis is truly bleeding conservative treatment is best, including colonoscopy w/ possible dual-modality therapy If this were to fail surgery would be indicated I would strongly consider transferring this pt back to original surgeon at [facility] for management of post-op complications keep NPO will d/w Dr Damon Barajas, PGY4
--- NOTE | 2018-02-02 09:32 | CP.PCM.PN ---
Subjective - Date & Time of Evaluation Date of Evaluation: 02/02/18 Time of Evaluation: 09:32 - Subjective Subjective: Progress note dictated #[id number] Objective - Vital Signs/Intake and Output Vital Signs (last 24 hours): Temp Pulse Resp BP Pulse Ox 98.0 F 78 20 132/72 95 02/02/18 07:00 02/02/18 07:00 02/02/18 07:00 02/02/18 07:00 02/02/18 07:00 Intake and Output: 02/02/18 02/02/18 06:59 18:59 Intake Total 636 Output Total 200 Balance 436 - Medications Medications: Current Medications Al Hydrox/Mg Hydrox/Simethicone (Maalox 30 Ml) 30 ml PO Q8 PRN PRN Reason: Indigestion / Heartburn Last Admin: 01/30/18 11:54 Dose: 30 ml Chlorpromazine (Thorazine) 25 mg IM Q8H PRN PRN Reason: Hiccups Last Admin: 02/01/18 09:25 Dose: 25 mg Diltiazem HCl (Cardizem Cd) 240 mg PO DAILY XU Last Admin: 02/01/18 09:25 Dose: Not Given Heparin Sodium (Porcine) (Heparin) 5,000 units SC Q12 XU Last Admin: 02/01/18 21:25 Dose: 5,000 units Vancomycin HCl 1,000 mg/ (Sodium Chloride) 200 mls @ 133.333 mls/hr IVPB Q12H XU PRN Reason: Protocol Last Admin: 02/02/18 06:33 Dose: 133.333 mls/hr Lactated Ringer's (Lactated Ringer's) 1,000 mls @ 100 mls/hr IV .Q10H XU Last Admin: 02/01/18 23:15 Dose: Not Given Chromium/Copper/Manganese/Zinc (1 ml/ Amino Acids) 1,001 mls @ 42 mls/hr IV .[id number] ONE Stop: 02/02/18 17:49 Last Admin: 02/01/18 21:25 Dose: 42 mls/hr Diltiazem HCl 125 mg/ Dextrose 125 mls @ 5 mls/hr IV .Q24H XU; 5 MG/HR PRN Reason: Protocol Last Admin: 02/01/18 12:51 Dose: 5 mls/hr Cefepime HCl (Maxipime Iv 1 Gm Premix) 1 gm in 50 mls @ 100 mls/hr IVPB Q8H XU PRN Reason: Protocol Last Admin: 02/02/18 08:31 Dose: 100 mls/hr Metoclopramide HCl (Reglan) 10 mg IVP Q6 XU Last Admin: 02/02/18 06:32 Dose: 10 mg Ondansetron HCl (Zofran Inj) 4 mg IVP Q6H PRN PRN Reason: Nausea/Vomiting Last Admin: 02/02/18 06:40 Dose: 4 mg Thiamine HCl (Vitamin B1 Inj) 100 mg IV DAILY [facility] Last Admin: 02/01/18 09:25 Dose: 100 mg - Labs Labs: 02/01/18 18:51 02/01/18 18:51 PT 13.7 SECONDS (9.7-12.2) H 02/01/18 18:51 INR 1.3 02/01/18 18:51 APTT 28 SECONDS (21-34) 02/01/18 18:51
[2018-02-02] MEDS: Thiamine 100 mg/ml Inj IV SCH (10:31)
--- NOTE | 2018-02-02 11:13 | CP.PCM.PN ---
Subjective - Date & Time of Evaluation Date of Evaluation: 02/02/18 Time of Evaluation: 07:00 - Subjective Subjective: events noted vomiting persists ? leak/ Blood from anastamosis may need re-imaging GI and surgery on board Objective - Vital Signs/Intake and Output Vital Signs (last 24 hours): Temp Pulse Resp BP Pulse Ox 98.0 F 78 20 132/72 95 02/02/18 07:00 02/02/18 07:00 02/02/18 07:00 02/02/18 07:00 02/02/18 07:00 Intake and Output: 02/02/18 02/02/18 06:59 18:59 Intake Total 636 Output Total 200 Balance 436 - Medications Medications: Current Medications Al Hydrox/Mg Hydrox/Simethicone (Maalox 30 Ml) 30 ml PO Q8 PRN PRN Reason: Indigestion / Heartburn Last Admin: 01/30/18 11:54 Dose: 30 ml Chlorpromazine (Thorazine) 25 mg IM Q8H PRN PRN Reason: Hiccups Last Admin: 02/02/18 10:37 Dose: 25 mg Diltiazem HCl (Cardizem Cd) 240 mg PO DAILY XU Last Admin: 02/01/18 09:25 Dose: Not Given Heparin Sodium (Porcine) (Heparin) 5,000 units SC Q12 XU Last Admin: 02/02/18 10:31 Dose: 5,000 units Vancomycin HCl 1,000 mg/ (Sodium Chloride) 200 mls @ 133.333 mls/hr IVPB Q12H XU PRN Reason: Protocol Last Admin: 02/02/18 06:33 Dose: 133.333 mls/hr Lactated Ringer's (Lactated Ringer's) 1,000 mls @ 100 mls/hr IV .Q10H XU Last Admin: 02/01/18 23:15 Dose: Not Given Chromium/Copper/Manganese/Zinc (1 ml/ Amino Acids) 1,001 mls @ 42 mls/hr IV .[id number] ONE Stop: 02/02/18 17:49 Last Admin: 02/01/18 21:25 Dose: 42 mls/hr Diltiazem HCl 125 mg/ Dextrose 125 mls @ 5 mls/hr IV .Q24H XU; 5 MG/HR PRN Reason: Protocol Last Admin: 02/01/18 12:51 Dose: 5 mls/hr Cefepime HCl (Maxipime Iv 1 Gm Premix) 1 gm in 50 mls @ 100 mls/hr IVPB Q8H XU PRN Reason: Protocol Last Admin: 02/02/18 08:31 Dose: 100 mls/hr Chromium/Copper/Manganese/Zinc 1 ml/ Multivitamins/Vitamin C 10 ml/ Amino Acids 1,011 mls @ 42 mls/hr IV .Q24H XU Stop: 02/03/18 17:59 Metoclopramide HCl (Reglan) 10 mg IVP Q6 XU Last Admin: 02/02/18 06:32 Dose: 10 mg Ondansetron HCl (Zofran Inj) 4 mg IVP Q6H PRN PRN Reason: Nausea/Vomiting Last Admin: 02/02/18 06:40 Dose: 4 mg Thiamine HCl (Vitamin B1 Inj) 100 mg IV DAILY [facility] Last Admin: 02/02/18 10:31 Dose: 100 mg - Labs Labs: 02/01/18 18:51 02/01/18 18:51 PT 13.7 SECONDS (9.7-12.2) H 02/01/18 18:51 INR 1.3 02/01/18 18:51 APTT 28 SECONDS (21-34) 02/01/18 18:51 - Constitutional Appears: Non-toxic, Chronically Ill - Head Exam Head Exam: NORMOCEPHALIC - Eye Exam Eye Exam: absent: Scleral icterus - ENT Exam ENT Exam: Mucous Membranes Dry - Neck Exam Neck Exam: absent: Lymphadenopathy - Respiratory Exam Respiratory Exam: Decreased Breath Sounds - Cardiovascular Exam Cardiovascular Exam: REGULAR RHYTHM - GI/Abdominal Exam GI & Abdominal Exam: Distended, Soft. absent: Tenderness - Rectal Exam Rectal Exam: Deferred - Exam Exam: NORMAL INSPECTION - Extremities Exam Extremities Exam: absent: Pedal Edema - Back Exam Back Exam: absent: CVA tenderness (L), CVA tenderness (R) - Neurological Exam Neurological Exam: Alert, Awake, Oriented x3 - Psychiatric Exam Psychiatric exam: Depressed - Skin Skin Exam: Dry Assessment and Plan (1) Paroxysmal atrial fibrillation Status: Acute (2) Seizure Status: Acute (3) Abdominal pain Status: Acute - Assessment and Plan (Free Text) Assessment: vomiting persists ? leak/ Blood from anastamosis may need re-imaging GI and surgery on board IV rx renewed may need re-exploration since drainage persists from surgical site
--- NOTE | 2018-02-02 11:57 | CP.PCM.PN ---
Subjective - Date & Time of Evaluation Date of Evaluation: 02/02/18 Time of Evaluation: 11:51 - Subjective Subjective: patient interviewd and examined. He continues to c/o of hiccups and vomiting. PE showa a soft abdomen with some fulness and hardening on RUQ. Repeat studies shows persistent gastric dilatation, in addition to multiple cysts.I suspect g astric atony or partial gastric outlet obstruction. If this continues much longer, Ill consider laparotomy and possibly a gastroenterostomy. will follow Objective - Vital Signs/Intake and Output Vital Signs (last 24 hours): Temp Pulse Resp BP Pulse Ox 98.0 F 82 20 132/72 95 02/02/18 07:00 02/02/18 08:01 02/02/18 07:00 02/02/18 07:00 02/02/18 07:00 Intake and Output: 02/02/18 02/02/18 06:59 18:59 Intake Total 636 Output Total 200 Balance 436 - Medications Medications: Current Medications Al Hydrox/Mg Hydrox/Simethicone (Maalox 30 Ml) 30 ml PO Q8 PRN PRN Reason: Indigestion / Heartburn Last Admin: 01/30/18 11:54 Dose: 30 ml Chlorpromazine (Thorazine) 25 mg IM Q8H PRN PRN Reason: Hiccups Last Admin: 02/02/18 10:37 Dose: 25 mg Diltiazem HCl (Cardizem Cd) 240 mg PO DAILY [facility] Last Admin: 02/01/18 09:25 Dose: Not Given Heparin Sodium (Porcine) (Heparin) 5,000 units SC Q12 [facility] Last Admin: 02/02/18 10:31 Dose: 5,000 units Vancomycin HCl 1,000 mg/ (Sodium Chloride) 200 mls @ 133.333 mls/hr IVPB Q12H XU PRN Reason: Protocol Last Admin: 02/02/18 06:33 Dose: 133.333 mls/hr Lactated Ringer's (Lactated Ringer's) 1,000 mls @ 100 mls/hr IV .Q10H [facility] Last Admin: 02/01/18 23:15 Dose: Not Given Chromium/Copper/Manganese/Zinc (1 ml/ Amino Acids) 1,001 mls @ 42 mls/hr IV .[id number] ONE Stop: 02/02/18 17:49 Last Admin: 02/01/18 21:25 Dose: 42 mls/hr Diltiazem HCl 125 mg/ Dextrose 125 mls @ 5 mls/hr IV .Q24H XU; 5 MG/HR PRN Reason: Protocol Last Admin: 02/01/18 12:51 Dose: 5 mls/hr Cefepime HCl (Maxipime Iv 1 Gm Premix) 1 gm in 50 mls @ 100 mls/hr IVPB Q8H XU PRN Reason: Protocol Last Admin: 02/02/18 08:31 Dose: 100 mls/hr Chromium/Copper/Manganese/Zinc 1 ml/ Multivitamins/Vitamin C 10 ml/ Amino Acids 1,011 mls @ 42 mls/hr IV .Q24H XU Stop: 02/03/18 17:59 Metoclopramide HCl (Reglan) 10 mg IVP Q6 XU Last Admin: 02/02/18 06:32 Dose: 10 mg Ondansetron HCl (Zofran Inj) 4 mg IVP Q6H PRN PRN Reason: Nausea/Vomiting Last Admin: 02/02/18 06:40 Dose: 4 mg Thiamine HCl (Vitamin B1 Inj) 100 mg IV DAILY XU Last Admin: 02/02/18 10:31 Dose: 100 mg - Labs Labs: 02/01/18 18:51 02/01/18 18:51 PT 13.7 SECONDS (9.7-12.2) H 02/01/18 18:51 INR 1.3 02/01/18 18:51 APTT 28 SECONDS (21-34) 02/01/18 18:51
[2018-02-02] MEDS: Lactated Ringer's 1,000 ML IV SCH ×2 (13:49→17:48)
--- NOTE | 2018-02-02 15:10 | CP.PCM.PN ---
Subjective - Date & Time of Evaluation Date of Evaluation: 02/02/18 Time of Evaluation: 15:07 - Subjective Subjective: PICC LINE ORDERED PT HAS POOR IV ACCESS PER PRIMARY RN GABRIELA. I DISCUSSED THE NEED FOR PICC TO THE PT, WELL THE RISKS AND COMPLICATIONS. PT VERBALIZED UNDERSTANDING AND IN AGREEMENT WITH HAVING THE PICC INSERTED TODAY. CONSENT SIGNED BY MYSELF, PT AND PRIMARY RN GABRIELA. NO FURTHER ORDERS AND PT HAS NO QUESTIONS. Objective - Vital Signs/Intake and Output Vital Signs (last 24 hours): Temp Pulse Resp BP Pulse Ox 98.0 F 82 20 132/72 95 02/02/18 07:00 02/02/18 08:01 02/02/18 07:00 02/02/18 07:00 02/02/18 07:00 Intake and Output: 02/02/18 02/02/18 06:59 18:59 Intake Total 636 441 Output Total 200 Balance 436 441 - Medications Medications: Current Medications Al Hydrox/Mg Hydrox/Simethicone (Maalox 30 Ml) 30 ml PO Q8 PRN PRN Reason: Indigestion / Heartburn Last Admin: 01/30/18 11:54 Dose: 30 ml Chlorpromazine (Thorazine) 25 mg IM Q8H PRN PRN Reason: Hiccups Last Admin: 02/02/18 10:37 Dose: 25 mg Diltiazem HCl (Cardizem Cd) 240 mg PO DAILY XU Last Admin: 02/01/18 09:25 Dose: Not Given Heparin Sodium (Porcine) (Heparin) 5,000 units SC Q12 XU Last Admin: 02/02/18 10:31 Dose: 5,000 units Vancomycin HCl 1,000 mg/ (Sodium Chloride) 200 mls @ 133.333 mls/hr IVPB Q12H XU PRN Reason: Protocol Last Admin: 02/02/18 06:33 Dose: 133.333 mls/hr Chromium/Copper/Manganese/Zinc (1 ml/ Amino Acids) 1,001 mls @ 42 mls/hr IV .[id number] ONE Stop: 02/02/18 17:49 Last Admin: 02/01/18 21:25 Dose: 42 mls/hr Diltiazem HCl 125 mg/ Dextrose 125 mls @ 5 mls/hr IV .Q24H XU; 5 MG/HR PRN Reason: Protocol Last Admin: 02/02/18 14:58 Dose: Not Given Cefepime HCl (Maxipime Iv 1 Gm Premix) 1 gm in 50 mls @ 100 mls/hr IVPB Q8H XU PRN Reason: Protocol Last Admin: 02/02/18 08:31 Dose: 100 mls/hr Chromium/Copper/Manganese/Zinc 1 ml/ Multivitamins/Vitamin C 10 ml/ Amino Acids 1,011 mls @ 42 mls/hr IV .Q24H [facility] Stop: 02/03/18 17:59 Lactated Ringer's (Lactated Ringer's) 1,000 mls @ 58 mls/hr IV .[id number] [facility] Last Admin: 02/02/18 13:49 Dose: 58 mls/hr Metoclopramide HCl (Reglan) 10 mg IVP Q6 [facility] Last Admin: 02/02/18 12:25 Dose: 10 mg Ondansetron HCl (Zofran Inj) 4 mg IVP Q6H PRN PRN Reason: Nausea/Vomiting Last Admin: 02/02/18 06:40 Dose: 4 mg Thiamine HCl (Vitamin B1 Inj) 100 mg IV DAILY [facility] Last Admin: 02/02/18 10:31 Dose: 100 mg - Labs Labs: 02/01/18 18:51 02/01/18 18:51 PT 13.7 SECONDS (9.7-12.2) H 02/01/18 18:51 INR 1.3 02/01/18 18:51 APTT 28 SECONDS (21-34) 02/01/18 18:51
--- NOTE | 2018-02-02 16:59 | RAD ---
Date of service: 02/02/2018 HISTORY: verify left PICC COMPARISON: 01/19/2018 FINDINGS: The left PICC line terminates in the SVC. LUNGS: The lungs are well inflated and clear. PLEURA: No significant pleural effusion identified, no pneumothorax apparent. CARDIOVASCULAR: Normal. OSSEOUS STRUCTURES: No significant abnormalities. VISUALIZED UPPER ABDOMEN: Normal. OTHER FINDINGS: None. IMPRESSION: Left PICC line terminates in the SVC. No acute findings.
[2018-02-02] MEDS ORDERED: *** PPN # 2 IV SCH (18:00)
[2018-02-03] MEDS: Cefepime IV 1 gm in Dextrose 1 GM/50 ML BAG IVPB SCH ×3 (00:18→17:59)
--- NOTE | 2018-02-03 02:31 | PN ---
DATE: 02/02/2018 SUBJECTIVE: The patient was seen and examined at bedside. Events from yesterday noted. The patient had multiple episodes of vomiting. NG tube insertion was failed. Underwent repeat CT. Had multiple episodes of vomiting. Better overnight, vomiting stopped, but complaining of hiccups. Denies any abdominal pain. Had two loose bowel movements. Denies any other complaints. PHYSICAL EXAMINATION: GENERAL: Middle-aged male, lying in bed, in no acute distress.. VITAL SIGNS: Blood pressure 149/79, pulse 90, respirations 20, temperature 98.2 degrees Fahrenheit, O2 saturation 98% on room air. HEENT: Pupils equal, round, and reacting to light and accommodation. Extraocular muscles intact. No icterus. No pallor. No oral thrush. No pharyngeal congestion. NECK: Supple. No JVD. LUNGS: Bilateral vesicular breath sounds. No wheezing. No rhonchi. CARDIOVASCULAR SYSTEM: S1 and S2 present, regular. ABDOMEN: Soft and nontender. Bowel sounds present. Surgical incision is healing with opening where the staple was removed with purulent discharge intermittently. No erythema noted. No tenderness noted. No guarding. No rigidity. No rebound tenderness noted. CENTRAL NERVOUS SYSTEM: Alert, awake, and oriented x3. No focal deficits noted. EXTREMITIES: No edema. Palpable peripheral pulses. MEDICATIONS: Include Maalox 30 mL p.o. every 8 hours, cefepime 1 g IV every 8 hours, Thorazine 25 mg IM every 8 hours p.r.n., PPN, Cardizem 240 mg p.o. daily, Cardizem 5 mg per hour IV, heparin 5000 units subcu every 12 hours, Ringer's lactate 58 mL per hour, metoclopramide 10 mg IV push every 6 hours, Zofran 4 mg IV push every 6 hours as needed, thiamine 100 mg IV daily, and vancomycin 1 g IV every 12 hours. LABORATORY DATA: Labs from yesterday: WBC 14.4, hemoglobin 11.6, hematocrit 34.9, and platelets 377. PT 13.7, INR 1.3, and PTT 28. Sodium 138, potassium 3.9, chloride 101, bicarb 26, BUN 9, creatinine 0.5, glucose 96, calcium 8.5. Total bilirubin 0.5, AST 21, ALT 28, alkaline phosphatase 60, total protein 6.1, and albumin 3.1. C. difficile toxin negative. ASSESSMENT AND PLAN: Middle-aged male with history of chronic low back pain, on pain medications, underwent emergent exploratory laparotomy and right hemicolectomy at [facility] who signed out against medical advice. Came into the [facility]. Admitted for witnessed seizure at office and status post altered mental status, wound infection with persistent discharge. Repeat CT showing acute pancreatitis, infrahepatic loculated abscesses versus fluid collections and markedly distended stomach with persistent vomiting, unable to insert nasogastric tube secondary to possible esophageal stenosis. CT of the neck consistent with enlarged palatine tonsils, severe narrowing of the oropharyngeal airway which measures 1.5 mm in diameter. Repeat abdomen and pelvis CT consistent with same fluid collection in the same region at the posterior to the anastomotic site with markedly distended fluid filled stomach. The patient refused to get intravenous contrast even though the patient had multiple CTs here tried yesterday with oral and intravenous contrast. There was no documentation of any allergic reaction, but the patient claimed intravenous and oral contrast made him sick and refused to get oral and intravenous contrast. I discussed with surgical team and gastroenterology fellow, writing for Ear, Nose and Throat evaluation. We will obtain esophagogram, unable to locate the patient's records from [facility]. We will re-request records. We will try to contact the patient's surgeon who did the surgery and will obtain more detailed information. Surgery input appreciated. We will continue with nothing by mouth, partial parenteral nutrition, and current antibiotics. The patient is still on Cardizem drip and he is nothing by mouth. Repeat stool for Clostridium difficile is negative. We will repeat labs in the morning. We will follow up with Surgery regarding further treatment plan. The patient underwent peripherally inserted central catheter line insertion. Jyothi Jeronimo MD
[2018-02-03] MEDS: Lactated Ringer's 1,000 ML IV SCH (06:32)
[2018-02-03 07:46] LABS: BASO # 0.1 K/uL (0.0-0.2); BASO % 0.9 % (0.0-2.0); EOS # 0.1 K/uL (0.0-0.7); EOS % 1.1 % (0.0-4.0); HEMOGLOBIN 10.7 g/dL (12.0-18.0); LYMPH # 1.1 K/uL (1.0-4.3); LYMPH % 14.6 % (20.0-40.0); MEAN CELL VOLUME 93.3 fL (80.0-94.0); MEAN CORPUSCULAR HEMOGLOBIN 31.6 pg (27.0-31.0); MEAN CORPUSCULAR HGB CONC 33.9 g/dL (33.0-37.0); MEAN PLATELET VOLUME 9.9 fL (7.2-11.7); MONO # 0.5 K/uL (0.0-0.8); MONO % 6.2 % (0.0-10.0); NEUT # 5.9 K/uL (1.8-7.0); NEUT % 77.2 % (50.0-75.0); NRBC % 0.1 % (0.0-2.0); RBC 3.38 Mil/uL (4.40-5.90); RED CELL DISTRIBUTION WIDTH 13.8 % (11.5-14.5); WHITE BLOOD COUNT 7.7 K/uL (4.8-10.8)
[2018-02-03 08:01] LABS: ALB/GLOB RATIO 0.9 (1.0-2.1); ALBUMIN 2.6 g/dL (3.5-5.0); ALT/SGPT 28 U/L (21-72); AST/SGOT 15 U/L (17-59); BLOOD UREA NITROGEN 8 mg/dL (9-20); GFR NON-AFRICAN AMERICAN > 60
[2018-02-03] MEDS: Thiamine 100 mg/ml Inj IV SCH (09:46)
--- NOTE | 2018-02-03 10:07 | CP.PCM.PN ---
Subjective - Date & Time of Evaluation Date of Evaluation: 02/03/18 Time of Evaluation: 10:06 - Subjective Subjective: Progress note dictated #[id number] Objective - Vital Signs/Intake and Output Vital Signs (last 24 hours): Temp Pulse Resp BP Pulse Ox 97.5 F L 91 H 20 126/76 96 02/03/18 07:00 02/03/18 07:00 02/03/18 07:00 02/03/18 07:00 02/03/18 07:00 Intake and Output: 02/03/18 02/03/18 06:59 18:59 Intake Total 1040 940 Balance 1040 940 - Medications Medications: Current Medications Al Hydrox/Mg Hydrox/Simethicone (Maalox 30 Ml) 30 ml PO Q8 PRN PRN Reason: Indigestion / Heartburn Last Admin: 01/30/18 11:54 Dose: 30 ml Chlorpromazine (Thorazine) 25 mg IM Q8H PRN PRN Reason: Hiccups Last Admin: 02/02/18 10:37 Dose: 25 mg Diltiazem HCl (Cardizem Cd) 240 mg PO DAILY UX Last Admin: 02/01/18 09:25 Dose: Not Given Heparin Sodium (Porcine) (Heparin) 5,000 units SC Q12 XU Last Admin: 02/03/18 09:45 Dose: 5,000 units Vancomycin HCl 1,000 mg/ (Sodium Chloride) 200 mls @ 133.333 mls/hr IVPB Q12H XU; Protocol Last Admin: 02/03/18 06:30 Dose: 133.333 mls/hr Diltiazem HCl 125 mg/ Dextrose 125 mls @ 5 mls/hr IV .Q24H XU; Protocol Last Admin: 02/02/18 14:58 Dose: Not Given Cefepime HCl (Maxipime Iv 1 Gm Premix) 1 gm in 50 mls @ 100 mls/hr IVPB Q8H XU; Protocol Last Admin: 02/03/18 09:47 Dose: 100 mls/hr Chromium/Copper/Manganese/Zinc 1 ml/ Multivitamins/Vitamin C 10 ml/ Amino Acids 1,011 mls @ 42 mls/hr IV .Q24H XU Stop: 02/03/18 17:59 Last Admin: 02/02/18 18:47 Dose: 42 mls/hr Lactated Ringer's (Lactated Ringer's) 1,000 mls @ 58 mls/hr IV .[id number] [facility] Last Admin: 02/03/18 06:32 Dose: Not Given Metoclopramide HCl (Reglan) 10 mg IVP Q6 [facility] Last Admin: 02/03/18 05:11 Dose: 10 mg Ondansetron HCl (Zofran Inj) 4 mg IVP Q6H PRN PRN Reason: Nausea/Vomiting Last Admin: 02/02/18 06:40 Dose: 4 mg Thiamine HCl (Vitamin B1 Inj) 100 mg IV DAILY [facility] Last Admin: 02/03/18 09:46 Dose: 100 mg - Labs Labs: 02/03/18 07:13 02/03/18 07:13 PT 13.7 SECONDS (9.7-12.2) H 02/01/18 18:51 INR 1.3 02/01/18 18:51 APTT 28 SECONDS (21-34) 02/01/18 18:51
[2018-02-03] MEDS ORDERED: PPN IV ONE ×2 (11:45→18:00)
--- NOTE | 2018-02-03 12:31 | CP.PCM.PN ---
Subjective - Date & Time of Evaluation Date of Evaluation: 02/03/18 Time of Evaluation: 12:26 - Subjective Subjective: Surgery Pt seen and examined. No acute events. Denies vomiting ovenight. Pt is NPO for now. got PICC. Denies fever, abd pain, CP, SOB. OOB. Objective - Vital Signs/Intake and Output Vital Signs (last 24 hours): Temp Pulse Resp BP Pulse Ox 97.5 F L 91 H 20 126/76 96 02/03/18 07:00 02/03/18 07:00 02/03/18 07:00 02/03/18 07:00 02/03/18 07:00 Intake and Output: 02/03/18 02/03/18 06:59 18:59 Intake Total 1040 940 Balance 1040 940 - Medications Medications: Current Medications Al Hydrox/Mg Hydrox/Simethicone (Maalox 30 Ml) 30 ml PO Q8 PRN PRN Reason: Indigestion / Heartburn Last Admin: 01/30/18 11:54 Dose: 30 ml Chlorpromazine (Thorazine) 25 mg IM Q8H PRN PRN Reason: Hiccups Last Admin: 02/02/18 10:37 Dose: 25 mg Diltiazem HCl (Cardizem Cd) 240 mg PO DAILY XU Last Admin: 02/01/18 09:25 Dose: Not Given Heparin Sodium (Porcine) (Heparin) 5,000 units SC Q12 XU Last Admin: 02/03/18 09:45 Dose: 5,000 units Vancomycin HCl 1,000 mg/ (Sodium Chloride) 200 mls @ 133.333 mls/hr IVPB Q12H XU; Protocol Last Admin: 02/03/18 06:30 Dose: 133.333 mls/hr Diltiazem HCl 125 mg/ Dextrose 125 mls @ 5 mls/hr IV .Q24H XU; Protocol Last Admin: 02/02/18 14:58 Dose: Not Given Cefepime HCl (Maxipime Iv 1 Gm Premix) 1 gm in 50 mls @ 100 mls/hr IVPB Q8H XU; Protocol Last Admin: 02/03/18 09:47 Dose: 100 mls/hr Chromium/Copper/Manganese/Zinc 1 ml/ Multivitamins/Vitamin C 10 ml/ Amino Acids 1,011 mls @ 42 mls/hr IV .Q24H [facility] Stop: 02/03/18 17:59 Last Admin: 02/02/18 18:47 Dose: 42 mls/hr Lactated Ringer's (Lactated Ringer's) 1,000 mls @ 58 mls/hr IV .[id number] [facility] Last Admin: 02/03/18 06:32 Dose: Not Given Chromium/Copper/Manganese/Zinc 1 ml/ Multivitamins/Vitamin C 10 ml/ Amino Acids 1,011 mls @ 42 mls/hr IV .Q24H [facility] Stop: 02/04/18 17:59 Metoclopramide HCl (Reglan) 10 mg IVP Q6 [facility] Last Admin: 02/03/18 05:11 Dose: 10 mg Ondansetron HCl (Zofran Inj) 4 mg IVP Q6H PRN PRN Reason: Nausea/Vomiting Last Admin: 02/02/18 06:40 Dose: 4 mg Thiamine HCl (Vitamin B1 Inj) 100 mg IV DAILY [facility] Last Admin: 02/03/18 09:46 Dose: 100 mg - Labs Labs: 02/03/18 07:13 02/03/18 07:13 PT 13.7 SECONDS (9.7-12.2) H 02/01/18 18:51 INR 1.3 02/01/18 18:51 APTT 28 SECONDS (21-34) 02/01/18 18:51 - Constitutional Appears: No Acute Distress - Head Exam Head Exam: ATRAUMATIC, NORMAL INSPECTION, NORMOCEPHALIC - Eye Exam Eye Exam: EOMI, Normal appearance, PERRL Pupil Exam: NORMAL ACCOMODATION, PERRL - ENT Exam ENT Exam: Mucous Membranes Moist, Normal Exam - Neck Exam Neck Exam: Full ROM, Normal Inspection. absent: Lymphadenopathy - Respiratory Exam Respiratory Exam: NORMAL BREATHING PATTERN - Cardiovascular Exam Cardiovascular Exam: REGULAR RHYTHM, +S1, +S2. absent: Murmur - GI/Abdominal Exam GI & Abdominal Exam: Soft. absent: Distended, Firm, Guarding, Tenderness Additional comments: Incisin healing. - Exam Exam: NORMAL INSPECTION - Extremities Exam Extremities Exam: Full ROM, Normal Capillary Refill, Normal Inspection. absent: Joint Swelling, Pedal Edema - Back Exam Back Exam: NORMAL INSPECTION - Neurological Exam Neurological Exam: Alert, Awake, CN II-XII Intact, Normal Gait, Oriented x3 - Psychiatric Exam Psychiatric exam: Normal Affect, Normal Mood - Skin Skin Exam: Warm. absent: Erythema Assessment and Plan - Assessment and Plan (Free Text) Assessment: Persistent, N/V: possible gastric outlet obstruction Repeat studies shows persistent gastric dilatation, in addition to multiple cysts.possible gastric atony or partial gastric outlet obstruction. -If this continues much longer, we will consider laparotomy and possibly a gastroenterostomy. -will follow -May start on TPN via PICC -monitor vitals -f/u ENT eval Will DW Dr. Jose
--- NOTE | 2018-02-03 20:54 | CON ---
DATE: 02/03/2018 REASON FOR CONSULTATION: Dysphagia. HISTORY OF PRESENT ILLNESS: This is a 62-year-old male with most of the history of vomiting after taking p.o. It is constant, [id number] intensity. The patient denies any throat pain or dysphagia or hoarseness. There is also no history of smoking and only social drinking. PAST MEDICAL HISTORY: As noted in the chart by me. MEDICATIONS: As noted in the chart by me. PHYSICAL EXAMINATION: VITAL SIGNS: Head: Atraumatic and normocephalic. FACE: Good facial movements bilaterally. CONSTITUTIONAL: Well fed, well nourished. COMMUNICATION: Communicates well and appropriately. EXTERNAL NOSE AND EARS: No masses. No lesions. No erythema. No edema. INTERNAL NOSE: Deviated septum. No masses. No lesions. No erythema. No edema. ORAL CAVITY AND OROPHARYNX: No masses. No lesions. No erythema or edema. LIPS AND GUMS: No masses. No lesions. No erythema. No edema. NECK: Supple. THYROID: No thyromegaly. No goiter. LYMPH NODES: No lymphadenopathy of the neck. ASSESSMENT: 1. Possible dysphagia. 2. Deviated septum. Since the patient says that he can take food down and then vomit, it is unlikely that the patient is having true difficulty swallowing. I was able to do a flexible laryngoscopy on the patient. We will also recommend a modified Barium swallow. Mike Sullivan MD
--- NOTE | 2018-02-03 23:31 | OP ---
PROCEDURE DATE: 02/03/2018 PREOPERATIVE DIAGNOSIS: Dysphagia. POSTOPERATIVE DIAGNOSIS: Dysphagia. PROCEDURE: Flexible laryngoscopy. SIGNIFICANT FINDINGS: No masses or lesions noted. DESCRIPTION OF PROCEDURE: The patient was placed in a seated position. Nose was decongested using Afrin nasal spray. Flexible laryngoscope was inserted into the nasal cavity; passed through the nasopharynx, oropharynx, and hypopharynx. The base of tongue, vallecula, epiglottis, AE folds, false cords, true cords, piriform sinuses, arytenoids, pharyngeal garcia were brought into view. No masses or lesions were noted. Vocal cords were mobile bilaterally. The scope was removed. The patient tolerated the procedure well. Since it was a normal exam, I will recommend a modified barium swallow to see if the patient has any swallowing difficulties. Mike Sullivan MD MTDJose F
[2018-02-04] MEDS: Cefepime IV 1 gm in Dextrose 1 GM/50 ML BAG IVPB SCH ×3 (00:23→17:37)
--- NOTE | 2018-02-04 00:52 | PN ---
DATE: 02/03/2018 SUBJECTIVE: The patient was seen and examined at bedside. Events from yesterday noted. Unable to locate the patient's records. Medical records re-requested. The patient remained n.p.o. Denies any vomiting overnight. Denies any abdominal pain, but still complains of intermittent hiccups. Denies any new complaints. PHYSICAL EXAMINATION: GENERAL: Middle-aged male, lying in bed, in no acute distress. VITAL SIGNS: Blood pressure 126/76, pulse 91, respirations 20, temperature 97.5 degrees Fahrenheit, O2 saturation 96% on room air. HEENT: Pupils equal, round, and reacting to light and accommodation. Extraocular muscles intact. No icterus. No pallor. No oral thrush. No pharyngeal congestion. NECK: Supple. No JVD. LUNGS: Bilateral vesicular breath sounds. No wheezing. No rhonchi. CARDIOVASCULAR SYSTEM: S1 and S2 present, regular. ABDOMEN: Soft. Bowel sounds heard. Nontender. Surgical incision healing with opening at the staple removal site with purulent discharge. CENTRAL NERVOUS SYSTEM: Alert, awake, and oriented x3. No focal deficits noted. EXTREMITIES: No edema. Palpable peripheral pulses. MEDICATIONS: Include Maalox 30 mL every 8 hours, Maxipime 1 g IV every 8 hours, Thorazine 25 mg IM every 8 hours p.r.n, , Cardizem 5 mg per hour, heparin 5000 units subcu every 12 hours, Ringer's lactate 58 mL an hour, Reglan 100 mg IV push every 6 hours, Zofran 4 mg IV push every 6 hours p.r.n., thiamine 100 mg IV daily, vancomycin 1 g IV every 12 hours. LABORATORY DATA: Labs from today: WBC 7.7, hemoglobin 10.7, hematocrit 31.5, and platelets 273. Sodium 137, potassium 3.4, chloride 102, bicarb 24, BUN 8, creatinine 0.5, glucose 102, calcium 8, phosphorus 2.8, magnesium 1.9. Total bilirubin 0.3, AST 15, ALT 28, alkaline phosphatase 50, total protein 5.3, and albumin 2.7. ASSESSMENT AND PLAN: Middle-aged male with history of chronic low back pain, ethyl alcohol abuse, status post right hemicolectomy. Admitted for witnessed seizure, wound infection with multiple organisms. CT consistent with intrahepatic fluid collection with acute pancreatitis and distended stomach with persistent vomiting which improved since yesterday. Awaiting for Ear, Nose and Throat evaluation for possible direct laryngoscopy to rule out any esophageal stricture as nasogastric tube was not able to be placed. We will follow up with Surgery. The patient is still nothing by mouth. Continue with total parenteral nutrition. On cefepime and vancomycin. We will continue with deep venous thrombosis and gastrointestinal prophylaxis. On Cardizem drip. As the patient is nothing by mouth, we will supplement one dose of potassium for hypokalemia. Called [facility] multiple times to obtain the records. Waiting for the records. Unclear how Gastroenterology got the records. They were misplaced and unable to locate anywhere in the chart or on the floor. Jyothi Jeronimo MD
[2018-02-04] MEDS ORDERED: HYDROmorphone 0.5 mg/0.5 ml ISec IVP STA (03:23)
[2018-02-04] MEDS: Thiamine 100 mg/ml Inj IV SCH (08:59)
--- NOTE | 2018-02-04 12:39 | CP.PCM.PN ---
Subjective - Date & Time of Evaluation Date of Evaluation: 02/04/18 Time of Evaluation: 12:39 - Subjective Subjective: Progress note dictated #[id number] Objective - Vital Signs/Intake and Output Vital Signs (last 24 hours): Temp Pulse Resp BP Pulse Ox 98.1 F 79 18 140/71 97 02/04/18 07:00 02/04/18 07:00 02/04/18 07:00 02/04/18 07:00 02/04/18 07:00 Intake and Output: 02/04/18 02/04/18 06:59 18:59 Intake Total 2290 Output Total 1100 Balance 1190 - Medications Medications: Current Medications Al Hydrox/Mg Hydrox/Simethicone (Maalox 30 Ml) 30 ml PO Q8 PRN PRN Reason: Indigestion / Heartburn Last Admin: 01/30/18 11:54 Dose: 30 ml Chlorpromazine (Thorazine) 25 mg IM Q8H PRN PRN Reason: Hiccups Last Admin: 02/02/18 10:37 Dose: 25 mg Diltiazem HCl (Cardizem Cd) 240 mg PO DAILY XU Last Admin: 02/01/18 09:25 Dose: Not Given Heparin Sodium (Porcine) (Heparin) 5,000 units SC Q12 XU Last Admin: 02/04/18 09:00 Dose: 5,000 units Vancomycin HCl 1,000 mg/ (Sodium Chloride) 200 mls @ 133.333 mls/hr IVPB Q12H XU; Protocol Last Admin: 02/04/18 06:18 Dose: 133.333 mls/hr Diltiazem HCl 125 mg/ Dextrose 125 mls @ 5 mls/hr IV .Q24H XU; Protocol Last Admin: 02/03/18 15:14 Dose: 5 mls/hr Cefepime HCl (Maxipime Iv 1 Gm Premix) 1 gm in 50 mls @ 100 mls/hr IVPB Q8H XU; Protocol Last Admin: 02/04/18 09:05 Dose: 100 mls/hr Lactated Ringer's (Lactated Ringer's) 1,000 mls @ 58 mls/hr IV .[id number] XU Last Admin: 02/03/18 06:32 Dose: Not Given Chromium/Copper/Manganese/Zinc 1 ml/ Multivitamins/Vitamin C 10 ml/ Amino Acids 1,011 mls @ 42 mls/hr IV .Q24H [facility] Stop: 02/04/18 17:59 Last Admin: 02/03/18 18:01 Dose: 42 mls/hr Chromium/Copper/Manganese/Zinc 1 ml/ Multivitamins/Vitamin C 10 ml/ Amino Acids 1,011 mls @ 42 mls/hr IV .Q24H [facility] Stop: 02/05/18 17:59 Metoclopramide HCl (Reglan) 10 mg IVP Q6 [facility] Last Admin: 02/04/18 06:18 Dose: 10 mg Ondansetron HCl (Zofran Inj) 4 mg IVP Q6H PRN PRN Reason: Nausea/Vomiting Last Admin: 02/02/18 06:40 Dose: 4 mg Thiamine HCl (Vitamin B1 Inj) 100 mg IV DAILY [facility] Last Admin: 02/04/18 08:59 Dose: 100 mg - Labs Labs: 02/03/18 07:13 02/03/18 07:13 PT 13.7 SECONDS (9.7-12.2) H 02/01/18 18:51 INR 1.3 02/01/18 18:51 APTT 28 SECONDS (21-34) 02/01/18 18:51
--- NOTE | 2018-02-04 12:42 | CP.PCM.PN ---
Subjective - Date & Time of Evaluation Date of Evaluation: 02/04/18 Time of Evaluation: 08:00 - Subjective Subjective: less vomiting no diarrhea abd wound healing no drainage Objective - Vital Signs/Intake and Output Vital Signs (last 24 hours): Temp Pulse Resp BP Pulse Ox 98.1 F 79 18 140/71 97 02/04/18 07:00 02/04/18 07:00 02/04/18 07:00 02/04/18 07:00 02/04/18 07:00 Intake and Output: 02/04/18 02/04/18 06:59 18:59 Intake Total 2290 Output Total 1100 Balance 1190 - Medications Medications: Current Medications Al Hydrox/Mg Hydrox/Simethicone (Maalox 30 Ml) 30 ml PO Q8 PRN PRN Reason: Indigestion / Heartburn Last Admin: 01/30/18 11:54 Dose: 30 ml Chlorpromazine (Thorazine) 25 mg IM Q8H PRN PRN Reason: Hiccups Last Admin: 02/02/18 10:37 Dose: 25 mg Diltiazem HCl (Cardizem Cd) 240 mg PO DAILY [facility] Last Admin: 02/01/18 09:25 Dose: Not Given Heparin Sodium (Porcine) (Heparin) 5,000 units SC Q12 XU Last Admin: 02/04/18 09:00 Dose: 5,000 units Vancomycin HCl 1,000 mg/ (Sodium Chloride) 200 mls @ 133.333 mls/hr IVPB Q12H XU; Protocol Last Admin: 02/04/18 06:18 Dose: 133.333 mls/hr Diltiazem HCl 125 mg/ Dextrose 125 mls @ 5 mls/hr IV .Q24H XU; Protocol Last Admin: 02/03/18 15:14 Dose: 5 mls/hr Cefepime HCl (Maxipime Iv 1 Gm Premix) 1 gm in 50 mls @ 100 mls/hr IVPB Q8H XU; Protocol Last Admin: 02/04/18 09:05 Dose: 100 mls/hr Lactated Ringer's (Lactated Ringer's) 1,000 mls @ 58 mls/hr IV .[id number] XU Last Admin: 02/03/18 06:32 Dose: Not Given Chromium/Copper/Manganese/Zinc 1 ml/ Multivitamins/Vitamin C 10 ml/ Amino Acids 1,011 mls @ 42 mls/hr IV .Q24H [facility] Stop: 02/04/18 17:59 Last Admin: 02/03/18 18:01 Dose: 42 mls/hr Chromium/Copper/Manganese/Zinc 1 ml/ Multivitamins/Vitamin C 10 ml/ Amino Acids 1,011 mls @ 42 mls/hr IV .Q24H [facility] Stop: 02/05/18 17:59 Metoclopramide HCl (Reglan) 10 mg IVP Q6 [facility] Last Admin: 02/04/18 06:18 Dose: 10 mg Ondansetron HCl (Zofran Inj) 4 mg IVP Q6H PRN PRN Reason: Nausea/Vomiting Last Admin: 02/02/18 06:40 Dose: 4 mg Thiamine HCl (Vitamin B1 Inj) 100 mg IV DAILY [facility] Last Admin: 02/04/18 08:59 Dose: 100 mg - Labs Labs: 02/03/18 07:13 02/03/18 07:13 PT 13.7 SECONDS (9.7-12.2) H 02/01/18 18:51 INR 1.3 02/01/18 18:51 APTT 28 SECONDS (21-34) 02/01/18 18:51 - Constitutional Appears: Non-toxic, Chronically Ill - Head Exam Head Exam: NORMOCEPHALIC - Eye Exam Eye Exam: PERRL - ENT Exam ENT Exam: Mucous Membranes Dry - Neck Exam Neck Exam: absent: Lymphadenopathy - Respiratory Exam Respiratory Exam: Decreased Breath Sounds - Cardiovascular Exam Cardiovascular Exam: REGULAR RHYTHM - GI/Abdominal Exam GI & Abdominal Exam: Distended, Soft - Rectal Exam Rectal Exam: Deferred - Exam Exam: NORMAL INSPECTION - Extremities Exam Extremities Exam: absent: Pedal Edema - Back Exam Back Exam: absent: CVA tenderness (L), CVA tenderness (R) Assessment and Plan (1) Paroxysmal atrial fibrillation Status: Acute (2) Seizure Status: Acute (3) Abdominal pain Status: Acute - Assessment and Plan (Free Text) Assessment: possible d/c home
[2018-02-04] MEDS: Lactated Ringer's 1,000 ML IV SCH (15:02)
[2018-02-04] MEDS ORDERED: TPN #4 IV ONE (18:00)
--- NOTE | 2018-02-05 00:58 | PN ---
DATE: 02/04/2018 SUBJECTIVE: The patient was seen and examined at bedside. The patient denies any hiccups. Denies any nausea or vomiting. Denies any abdominal pain severe, but complaining of minimal right upper quadrant discomfort. Denies any other new complaints. PHYSICAL EXAMINATION: GENERAL: Middle-aged male, lying in bed, in no acute distress. VITAL SIGNS: Blood pressure 116/73, pulse 95, respirations 20, temperature 98.5 degrees Fahrenheit, O2 saturation 96% on room air. HEENT: Pupils equal, round, and reacting to light and accommodation. Extraocular muscles intact. No icterus. No pallor. No oral thrush. No pharyngeal congestion. NECK: Supple. No JVD. LUNGS: Bilateral vesicular breath sounds. No wheezing. No rhonchi. CARDIOVASCULAR SYSTEM: S1 and S2 present, regular. ABDOMEN: Soft. Bowel sounds present. Surgical incision healing fairly well with opening. No discharge noted. No guarding. No rigidity. No rebound tenderness noted. CENTRAL NERVOUS SYSTEM: Alert, awake, and oriented x3. No focal deficits noted. EXTREMITIES: No edema. Palpable peripheral pulses. MEDICATIONS: Maalox as needed, cefepime 1 gm IV every 8 hours, Thorazine 25 mg IM every 8 hours p.r.n., TPN, Cardizem 240 mg p.o. daily, Ringer's lactate 58 mL an hour, Reglan 10 mg IV push every 6 hours, Zofran 4 mg IV push every 6 hours as needed, thiamine 100 mg daily, vancomycin 1 gm IV every 12 hours. ASSESSMENT AND PLAN: Middle-aged male with history of chronic low back pain on pain medications, status post exploratory laparotomy and right hemicolectomy done recently in the beginning of the month. Admitted here for witnessed seizure, wound infection, paroxysmal atrial fibrillation, intrahepatic fluid collections and pancreatitis with dilated stomach, status post intractable vomiting. The patient is still kept n.p.o. Seen by ENT. Underwent laryngoscopy, unable to find any stenosis as per ENT note. Requested esophagogram with small bowel series, which is not done yet. The patient is on cefepime and vancomycin with decreasing discharge from the incision site, follow up with surgery. If surgery recommends advancing diet, we will advance diet and we will add further recommendation as his clinical course progresses. Awaiting for surgery input. Discussed with surgeon from [facility], who performed the surgery. Continue with other current therapy. Jyothi Jeronimo MD
[2018-02-05] MEDS: Cefepime IV 1 gm in Dextrose 1 GM/50 ML BAG IVPB SCH ×3 (01:00→17:35)
--- NOTE | 2018-02-05 07:24 | CP.PCM.PN ---
Subjective - Date & Time of Evaluation Date of Evaluation: 02/04/18 Time of Evaluation: 11:30 - Subjective Subjective: Patient seen and examined. NAEO. Reports having couple bouts of emesis. Afebrile Objective - Vital Signs/Intake and Output Vital Signs (last 24 hours): Temp Pulse Resp BP Pulse Ox 98.7 F 101 H 20 127/81 96 02/05/18 04:10 02/05/18 04:10 02/05/18 04:10 02/05/18 04:10 02/05/18 04:10 Intake and Output: 02/05/18 02/05/18 06:59 18:59 Intake Total 1600 Output Total 1050 Balance 550 - Medications Medications: Current Medications Al Hydrox/Mg Hydrox/Simethicone (Maalox 30 Ml) 30 ml PO Q8 PRN PRN Reason: Indigestion / Heartburn Last Admin: 01/30/18 11:54 Dose: 30 ml Chlorpromazine (Thorazine) 25 mg IM Q8H PRN PRN Reason: Hiccups Last Admin: 02/02/18 10:37 Dose: 25 mg Diltiazem HCl (Cardizem Cd) 240 mg PO DAILY XU Last Admin: 02/01/18 09:25 Dose: Not Given Vancomycin HCl 1,000 mg/ (Sodium Chloride) 200 mls @ 133.333 mls/hr IVPB Q12H XU; Protocol Last Admin: 02/05/18 06:10 Dose: 133.333 mls/hr Cefepime HCl (Maxipime Iv 1 Gm Premix) 1 gm in 50 mls @ 100 mls/hr IVPB Q8H XU; Protocol Last Admin: 02/05/18 01:00 Dose: 100 mls/hr Lactated Ringer's (Lactated Ringer's) 1,000 mls @ 58 mls/hr IV .[id number] XU Last Admin: 02/04/18 15:02 Dose: 58 mls/hr Chromium/Copper/Manganese/Zinc 1 ml/ Multivitamins/Vitamin C 10 ml/ Amino Acids 1,011 mls @ 42 mls/hr IV .Q24H ONE Stop: 02/05/18 17:59 Last Admin: 02/04/18 18:17 Dose: 42 mls/hr Metoclopramide HCl (Reglan) 10 mg IVP Q6 XU Last Admin: 02/05/18 06:17 Dose: 10 mg Ondansetron HCl (Zofran Inj) 4 mg IVP Q6H PRN PRN Reason: Nausea/Vomiting Last Admin: 02/02/18 06:40 Dose: 4 mg Thiamine HCl (Vitamin B1 Inj) 100 mg IV DAILY [facility] Last Admin: 02/04/18 08:59 Dose: 100 mg - Labs Labs: 02/03/18 07:13 02/03/18 07:13 PT 13.7 SECONDS (9.7-12.2) H 02/01/18 18:51 INR 1.3 02/01/18 18:51 APTT 28 SECONDS (21-34) 02/01/18 18:51 - Constitutional Appears: No Acute Distress - Head Exam Head Exam: NORMOCEPHALIC - Eye Exam Eye Exam: EOMI, Normal appearance - Respiratory Exam Respiratory Exam: NORMAL BREATHING PATTERN - Cardiovascular Exam Cardiovascular Exam: +S1, +S2 - GI/Abdominal Exam GI & Abdominal Exam: Soft, Tenderness - Neurological Exam Neurological Exam: Alert, Awake, Oriented x3 - Psychiatric Exam Psychiatric exam: Normal Mood - Skin Skin Exam: Dry, Intact, Warm Assessment and Plan - Assessment and Plan (Free Text) Assessment: Persistent, N/V: possible gastric outlet obstruction Repeat studies shows persistent gastric dilatation, in addition to multiple cysts possible gastric atony or partial gastric outlet obstruction. Plan: -Modified barium swallow to follow -c/w TPN -monitor vitals -laryngoscopy demonstrated no masses -Will follow progressions of barium contrast, if it fails to progress, likely GOO vs gastric atony, at which point we will consider laparotomy and possibly a gastroenterostomy. -D/w Dr. Damon Bull PGY3
--- NOTE | 2018-02-05 08:14 | CP.PCM.PN ---
Subjective - Date & Time of Evaluation Date of Evaluation: 02/05/18 Time of Evaluation: 08:11 - Subjective Subjective: I spoke to speech pathologist who said the patient passed the bedside swallow and MBS is not needed. rec esophagram Objective - Vital Signs/Intake and Output Vital Signs (last 24 hours): Temp Pulse Resp BP Pulse Ox 98.7 F 101 H 20 127/81 96 02/05/18 04:10 02/05/18 04:10 02/05/18 04:10 02/05/18 04:10 02/05/18 04:10 Intake and Output: 02/05/18 02/05/18 06:59 18:59 Intake Total 1600 Output Total 1050 Balance 550 - Medications Medications: Current Medications Al Hydrox/Mg Hydrox/Simethicone (Maalox 30 Ml) 30 ml PO Q8 PRN PRN Reason: Indigestion / Heartburn Last Admin: 01/30/18 11:54 Dose: 30 ml Chlorpromazine (Thorazine) 25 mg IM Q8H PRN PRN Reason: Hiccups Last Admin: 02/02/18 10:37 Dose: 25 mg Diltiazem HCl (Cardizem Cd) 240 mg PO DAILY XU Last Admin: 02/01/18 09:25 Dose: Not Given Vancomycin HCl 1,000 mg/ (Sodium Chloride) 200 mls @ 133.333 mls/hr IVPB Q12H XU; Protocol Last Admin: 02/05/18 06:10 Dose: 133.333 mls/hr Cefepime HCl (Maxipime Iv 1 Gm Premix) 1 gm in 50 mls @ 100 mls/hr IVPB Q8H XU; Protocol Last Admin: 02/05/18 01:00 Dose: 100 mls/hr Lactated Ringer's (Lactated Ringer's) 1,000 mls @ 58 mls/hr IV .[id number] XU Last Admin: 02/04/18 15:02 Dose: 58 mls/hr Chromium/Copper/Manganese/Zinc 1 ml/ Multivitamins/Vitamin C 10 ml/ Amino Acids 1,011 mls @ 42 mls/hr IV .Q24H ONE Stop: 02/05/18 17:59 Last Admin: 02/04/18 18:17 Dose: 42 mls/hr Metoclopramide HCl (Reglan) 10 mg IVP Q6 XU Last Admin: 02/05/18 06:17 Dose: 10 mg Ondansetron HCl (Zofran Inj) 4 mg IVP Q6H PRN PRN Reason: Nausea/Vomiting Last Admin: 02/02/18 06:40 Dose: 4 mg Thiamine HCl (Vitamin B1 Inj) 100 mg IV DAILY [facility] Last Admin: 02/04/18 08:59 Dose: 100 mg - Labs Labs: 02/03/18 07:13 02/03/18 07:13 PT 13.7 SECONDS (9.7-12.2) H 02/01/18 18:51 INR 1.3 02/01/18 18:51 APTT 28 SECONDS (21-34) 02/01/18 18:51
[2018-02-05] MEDS: Thiamine 100 mg/ml Inj IV SCH (09:16)
[2018-02-05] MEDS ORDERED: Barium Sulfate for Susp 96% w/w 176g Bottle PR ONE ×2 (09:49→10:13)
--- NOTE | 2018-02-05 11:38 | CP.PCM.PN ---
Subjective - Date & Time of Evaluation Date of Evaluation: 02/05/18 Time of Evaluation: 11:38 - Subjective Subjective: Progress note dictated #[id number] Objective - Vital Signs/Intake and Output Vital Signs (last 24 hours): Temp Pulse Resp BP Pulse Ox 98.3 F 87 18 128/84 97 02/05/18 08:14 02/05/18 08:14 02/05/18 08:14 02/05/18 08:14 02/05/18 08:14 Intake and Output: 02/05/18 02/05/18 06:59 18:59 Intake Total 1600 Output Total 1050 Balance 550 - Medications Medications: Current Medications Al Hydrox/Mg Hydrox/Simethicone (Maalox 30 Ml) 30 ml PO Q8 PRN PRN Reason: Indigestion / Heartburn Last Admin: 01/30/18 11:54 Dose: 30 ml Chlorpromazine (Thorazine) 25 mg IM Q8H PRN PRN Reason: Hiccups Last Admin: 02/02/18 10:37 Dose: 25 mg Diltiazem HCl (Cardizem Cd) 240 mg PO DAILY XU Last Admin: 02/01/18 09:25 Dose: Not Given Vancomycin HCl 1,000 mg/ (Sodium Chloride) 200 mls @ 133.333 mls/hr IVPB Q12H XU; Protocol Last Admin: 02/05/18 06:10 Dose: 133.333 mls/hr Cefepime HCl (Maxipime Iv 1 Gm Premix) 1 gm in 50 mls @ 100 mls/hr IVPB Q8H XU; Protocol Last Admin: 02/05/18 09:19 Dose: 100 mls/hr Lactated Ringer's (Lactated Ringer's) 1,000 mls @ 58 mls/hr IV .[id number] XU Last Admin: 02/04/18 15:02 Dose: 58 mls/hr Chromium/Copper/Manganese/Zinc 1 ml/ Multivitamins/Vitamin C 10 ml/ Amino Acids 1,011 mls @ 42 mls/hr IV .Q24H ONE Stop: 02/05/18 17:59 Last Admin: 02/04/18 18:17 Dose: 42 mls/hr Diltiazem HCl 125 mg/ Dextrose 125 mls @ 5 mls/hr IV .Q24H XU Multivitamins/Vitamin C 10 ml/Chromium/Copper/Manganese/Zinc 1 ml/ Amino Acids 1,011 mls @ 42 mls/hr IV .Q24H ONE Stop: 02/06/18 17:59 Metoclopramide HCl (Reglan) 10 mg IVP Q6 [facility] Last Admin: 02/05/18 06:17 Dose: 10 mg Ondansetron HCl (Zofran Inj) 4 mg IVP Q6H PRN PRN Reason: Nausea/Vomiting Last Admin: 02/02/18 06:40 Dose: 4 mg Thiamine HCl (Vitamin B1 Inj) 100 mg IV DAILY [facility] Last Admin: 02/05/18 09:16 Dose: 100 mg - Labs Labs: 02/03/18 07:13 02/03/18 07:13 PT 13.7 SECONDS (9.7-12.2) H 02/01/18 18:51 INR 1.3 02/01/18 18:51 APTT 28 SECONDS (21-34) 02/01/18 18:51
--- NOTE | 2018-02-05 15:20 | RAD ---
Date of service: 02/05/2018 HISTORY: Dysphagia. COMPARISON: Comparison made with prior CT scan abdomen 02/01/2018. TECHNIQUE: Single contrast esophagram with upper GI and small-bowel follow-through was performed. FINDINGS: Patient tolerated procedure well. ESOPHAGUS: Esophageal mucosa appeared preserved. No evidence of stricture or mass lesion. HIATAL HERNIA: Small hiatal hernia. GASTROESOPHAGEAL REFLUX: No significant gastroesophageal reflux demonstrated during this procedure. OTHER FINDINGS: The stomach exhibited normal size, contour, caliber and distensibility. No evidence of persistent intraluminal or extrinsic filling defects. No evidence of gastric ulcerations. Slightly prominent rugal fold pattern noted. Rule out gastritis. No evidence of gastric outlet obstruction. Oral contrast material passed into the proximal small bowel without significant delay of. Duodenum also exhibit normal contour, caliber and distensibility. No evidence of duodenal ulceration seen. The small bowel exhibit normal contour and distensibility. Mucosal fold pattern unremarkable. There appears to be a partial right hemicolectomy with apparent anastomosis in the right lateral mid aspect of the abdomen.. No evidence of obstruction.. IMPRESSION: Unremarkable esophagram.. No evidence of persistent intraluminal or extrinsic filling defects or subcu strictures.. Small hiatal hernia. No significant gastroesophageal reflux. Prominent gastric rugal fold pattern suggesting gastritis. Clinical correlation recommended. No evidence of gastric outlet obstruction. Apparent partial right hemicolectomy with anastomosis in the right lateral mid abdomen region.
[2018-02-05] MEDS ORDERED: PPN #5 IV ONE (18:00)
[2018-02-06] MEDS: Cefepime IV 1 gm in Dextrose 1 GM/50 ML BAG IVPB SCH ×3 (00:02→18:21)
--- NOTE | 2018-02-06 02:28 | PN ---
DATE: 02/05/2018 SUBJECTIVE: The patient was seen and examined at bedside. The patient offers no new complaints. Denies any vomiting overnight. Scheduled for upper GI series today. Denies any urinary complaints. Denies any leg pains or leg cramps. PHYSICAL EXAMINATION: GENERAL: Middle-aged male, lying in bed, in no acute distress. VITAL SIGNS: Blood pressure 117/76, pulse 76, respirations 20, temperature 98.7 degrees Fahrenheit, and O2 sat 96% on room air. HEENT: Pupils equal, round, reacting to light and accommodation. Extraocular muscles intact. No icterus. No pallor. No oral thrush. No pharyngeal congestion. NECK: Supple. No JVD. LUNGS: Bilateral vesicular breath sounds. No wheezing. No rhonchi. CARDIOVASCULAR SYSTEM: S1 and S2 present, regular. ABDOMEN: Soft. Bowel sounds present. No guarding. No rigidity. No rebound tenderness noted. Surgical incision is healing and no distress from the incision site. CENTRAL NERVOUS SYSTEM: Alert, awake, and oriented x3. No focal deficits noted. EXTREMITIES: No edema. Palpable peripheral pulses. MEDICATIONS: Include Maalox 30 mL as needed, Maxipime 1 g IV every 8 hours, Thorazine 25 mg IM every 8 hours, Cardizem 240 mg daily, 5 mg per hour, Reglan 10 mg IV push every 6 hours, PPN, Zofran 4 mg IV push every 6 hours, thiamine 100 mg daily, and vancomycin 1 g IV every 12 hours. ASSESSMENT AND PLAN: Middle-aged male with history of chronic low back pain, exploratory laparotomy, status post right hemicolectomy. Admitted for seizure, wound infection, paroxysmal atrial fibrillation, status post intractable vomiting, infrahepatic fluid collections, pancreatitis, status post hypokalemia. The patient was started on clear liquids today by Surgery. Small bowel series does not show any evidence of gastric outlet obstruction, small hiatal hernia, no significant . We will continue with current antibiotics. We will advance diet as per Surgery. Follow up with Surgery when cleared. We will repeat labs in the morning. Continue with current antibiotics, vancomycin and cefepime. Jyothi Jeronimo MD [facility] # [id number]
[2018-02-06 07:39] LABS: ALBUMIN 2.8 g/dL (3.5-5.0); BLOOD UREA NITROGEN 5 mg/dL (9-20); CALCIUM 8.8 mg/dl (8.6-10.4); GFR NON-AFRICAN AMERICAN > 60
[2018-02-06 07:40] LABS: ALT/SGPT 24 U/L (21-72); AST/SGOT 17 U/L (17-59)
[2018-02-06 07:53] LABS: BASO # 0.1 K/uL (0.0-0.2); BASO % 1.4 % (0.0-2.0); EOS # 0.1 K/uL (0.0-0.7); EOS % 1.7 % (0.0-4.0); HEMOGLOBIN 11.2 g/dL (12.0-18.0); LYMPH # 1.9 K/uL (1.0-4.3); LYMPH % 24.5 % (20.0-40.0); MEAN CELL VOLUME 93.1 fL (80.0-94.0); MEAN CORPUSCULAR HEMOGLOBIN 31.2 pg (27.0-31.0); MEAN CORPUSCULAR HGB CONC 33.5 g/dL (33.0-37.0); MEAN PLATELET VOLUME 10.1 fL (7.2-11.7); MONO # 0.6 K/uL (0.0-0.8); MONO % 7.7 % (0.0-10.0); NEUT # 5.1 K/uL (1.8-7.0); NEUT % 64.7 % (50.0-75.0); RBC 3.59 Mil/uL (4.40-5.90); RED CELL DISTRIBUTION WIDTH 14.3 % (11.5-14.5); WHITE BLOOD COUNT 7.9 K/uL (4.8-10.8)
[2018-02-06] MEDS: Thiamine 100 mg/ml Inj IV SCH (09:25)
--- NOTE | 2018-02-06 10:34 | CP.PCM.PN ---
Subjective - Date & Time of Evaluation Date of Evaluation: 02/06/18 Time of Evaluation: 06:15 - Subjective Subjective: Patient seen and examined. Tolerating clear liquid diet. Denies n/v. Abd pain improving. Objective - Vital Signs/Intake and Output Vital Signs (last 24 hours): Temp Pulse Resp BP Pulse Ox 97.8 F 67 20 116/79 90 L 02/06/18 07:20 02/06/18 07:30 02/06/18 07:20 02/06/18 07:20 02/06/18 07:20 - Medications Medications: Current Medications Al Hydrox/Mg Hydrox/Simethicone (Maalox 30 Ml) 30 ml PO Q8 PRN PRN Reason: Indigestion / Heartburn Last Admin: 01/30/18 11:54 Dose: 30 ml Chlorpromazine (Thorazine) 25 mg IM Q8H PRN PRN Reason: Hiccups Last Admin: 02/02/18 10:37 Dose: 25 mg Diltiazem HCl (Cardizem Cd) 240 mg PO DAILY XU Last Admin: 02/01/18 09:25 Dose: Not Given Enoxaparin Sodium (Lovenox) 40 mg SC DAILY XU Vancomycin HCl 1,000 mg/ (Sodium Chloride) 200 mls @ 133.333 mls/hr IVPB Q12H XU; Protocol Last Admin: 02/06/18 06:01 Dose: 133.333 mls/hr Cefepime HCl (Maxipime Iv 1 Gm Premix) 1 gm in 50 mls @ 100 mls/hr IVPB Q8H XU; Protocol Last Admin: 02/06/18 08:06 Dose: 100 mls/hr Diltiazem HCl 125 mg/ Dextrose 125 mls @ 5 mls/hr IV .Q24H XU Last Admin: 02/05/18 16:13 Dose: 5 mls/hr Multivitamins/Vitamin C 10 ml/Chromium/Copper/Manganese/Zinc 1 ml/ Amino Acids 1,011 mls @ 42 mls/hr IV .Q24H ONE Stop: 02/06/18 17:59 Last Admin: 02/05/18 17:32 Dose: 42 mls/hr Metoclopramide HCl (Reglan) 10 mg IVP Q6 XU Last Admin: 02/06/18 05:42 Dose: 10 mg Ondansetron HCl (Zofran Inj) 4 mg IVP Q6H PRN PRN Reason: Nausea/Vomiting Last Admin: 02/02/18 06:40 Dose: 4 mg Thiamine HCl (Vitamin B1 Inj) 100 mg IV DAILY [facility] Last Admin: 02/06/18 09:25 Dose: 100 mg - Labs Labs: 02/06/18 07:02 02/06/18 07:02 PT 13.7 SECONDS (9.7-12.2) H 02/01/18 18:51 INR 1.3 02/01/18 18:51 APTT 28 SECONDS (21-34) 02/01/18 18:51 - Constitutional Appears: No Acute Distress - Head Exam Head Exam: NORMOCEPHALIC - Eye Exam Eye Exam: Normal appearance - ENT Exam ENT Exam: Mucous Membranes Moist - Respiratory Exam Respiratory Exam: NORMAL BREATHING PATTERN - Cardiovascular Exam Cardiovascular Exam: +S1, +S2 - GI/Abdominal Exam GI & Abdominal Exam: Soft, Tenderness - Neurological Exam Neurological Exam: Alert, Awake, Oriented x3 - Psychiatric Exam Psychiatric exam: Normal Mood - Skin Skin Exam: Dry, Intact, Warm Assessment and Plan - Assessment and Plan (Free Text) Assessment: 62M w/ pancreatitis- resolved Plan: Contrast reached distal bowel Patient tolerating clear liquid diet Adv diet as tolerated Encourage ambulation DVT ppx Further recs per Dr. Damon Bull PGY3
--- NOTE | 2018-02-06 11:16 | CP.PCM.PN ---
Subjective - Date & Time of Evaluation Date of Evaluation: 02/06/18 Time of Evaluation: 11:16 - Subjective Subjective: Progress note dictated #[id number] Objective - Vital Signs/Intake and Output Vital Signs (last 24 hours): Temp Pulse Resp BP Pulse Ox 97.8 F 67 20 116/79 90 L 02/06/18 07:20 02/06/18 07:30 02/06/18 07:20 02/06/18 07:20 02/06/18 07:20 - Medications Medications: Current Medications Al Hydrox/Mg Hydrox/Simethicone (Maalox 30 Ml) 30 ml PO Q8 PRN PRN Reason: Indigestion / Heartburn Last Admin: 01/30/18 11:54 Dose: 30 ml Chlorpromazine (Thorazine) 25 mg IM Q8H PRN PRN Reason: Hiccups Last Admin: 02/02/18 10:37 Dose: 25 mg Diltiazem HCl (Cardizem Cd) 240 mg PO DAILY XU Last Admin: 02/01/18 09:25 Dose: Not Given Enoxaparin Sodium (Lovenox) 40 mg SC DAILY XU Vancomycin HCl 1,000 mg/ (Sodium Chloride) 200 mls @ 133.333 mls/hr IVPB Q12H XU; Protocol Last Admin: 02/06/18 06:01 Dose: 133.333 mls/hr Cefepime HCl (Maxipime Iv 1 Gm Premix) 1 gm in 50 mls @ 100 mls/hr IVPB Q8H XU; Protocol Last Admin: 02/06/18 08:06 Dose: 100 mls/hr Diltiazem HCl 125 mg/ Dextrose 125 mls @ 5 mls/hr IV .Q24H XU Last Admin: 02/05/18 16:13 Dose: 5 mls/hr Multivitamins/Vitamin C 10 ml/Chromium/Copper/Manganese/Zinc 1 ml/ Amino Acids 1,011 mls @ 42 mls/hr IV .Q24H ONE Stop: 02/06/18 17:59 Last Admin: 02/05/18 17:32 Dose: 42 mls/hr Metoclopramide HCl (Reglan) 10 mg IVP Q6 XU Last Admin: 02/06/18 05:42 Dose: 10 mg Ondansetron HCl (Zofran Inj) 4 mg IVP Q6H PRN PRN Reason: Nausea/Vomiting Last Admin: 02/02/18 06:40 Dose: 4 mg Thiamine HCl (Vitamin B1 Inj) 100 mg IV DAILY [facility] Last Admin: 02/06/18 09:25 Dose: 100 mg - Labs Labs: 02/06/18 07:02 02/06/18 07:02 PT 13.7 SECONDS (9.7-12.2) H 02/01/18 18:51 INR 1.3 02/01/18 18:51 APTT 28 SECONDS (21-34) 02/01/18 18:51
--- NOTE | 2018-02-06 11:28 | CP.PCM.PN ---
Subjective - Date & Time of Evaluation Date of Evaluation: 02/06/18 Time of Evaluation: 11:25 - Subjective Subjective: patient claims he is eating and not vomiting.-at least today. no significant bdominal tenderness. no palpable masses anlthough there is some firmness noted on RUQ. WILL CONTINUE TO MONITOR AND IF PERSISTENT, WILL EXPLORE Objective - Vital Signs/Intake and Output Vital Signs (last 24 hours): Temp Pulse Resp BP Pulse Ox 97.8 F 67 20 116/79 90 L 02/06/18 07:20 02/06/18 07:30 02/06/18 07:20 02/06/18 07:20 02/06/18 07:20 - Medications Medications: Current Medications Al Hydrox/Mg Hydrox/Simethicone (Maalox 30 Ml) 30 ml PO Q8 PRN PRN Reason: Indigestion / Heartburn Last Admin: 01/30/18 11:54 Dose: 30 ml Chlorpromazine (Thorazine) 25 mg IM Q8H PRN PRN Reason: Hiccups Last Admin: 02/02/18 10:37 Dose: 25 mg Diltiazem HCl (Cardizem Cd) 240 mg PO DAILY XU Last Admin: 02/01/18 09:25 Dose: Not Given Enoxaparin Sodium (Lovenox) 40 mg SC DAILY XU Vancomycin HCl 1,000 mg/ (Sodium Chloride) 200 mls @ 133.333 mls/hr IVPB Q12H XU; Protocol Last Admin: 02/06/18 06:01 Dose: 133.333 mls/hr Cefepime HCl (Maxipime Iv 1 Gm Premix) 1 gm in 50 mls @ 100 mls/hr IVPB Q8H XU; Protocol Last Admin: 02/06/18 08:06 Dose: 100 mls/hr Multivitamins/Vitamin C 10 ml/Chromium/Copper/Manganese/Zinc 1 ml/ Amino Acids 1,011 mls @ 42 mls/hr IV .Q24H ONE Stop: 02/06/18 17:59 Last Admin: 02/05/18 17:32 Dose: 42 mls/hr Metoclopramide HCl (Reglan) 10 mg IVP Q6 XU Last Admin: 02/06/18 05:42 Dose: 10 mg Ondansetron HCl (Zofran Inj) 4 mg IVP Q6H PRN PRN Reason: Nausea/Vomiting Last Admin: 02/02/18 06:40 Dose: 4 mg Thiamine HCl (Vitamin B1 Inj) 100 mg IV DAILY [facility] Last Admin: 02/06/18 09:25 Dose: 100 mg - Labs Labs: 02/06/18 07:02 02/06/18 07:02 PT 13.7 SECONDS (9.7-12.2) H 02/01/18 18:51 INR 1.3 02/01/18 18:51 APTT 28 SECONDS (21-34) 02/01/18 18:51
[2018-02-06] MEDS: Enoxaparin 40 mg Syringe SC SCH (11:32)
[2018-02-06] MEDS: Lactated Ringer's 1,000 ML IV SCH (14:15)
--- NOTE | 2018-02-06 17:19 | CP.PCM.PN ---
Subjective - Date & Time of Evaluation Date of Evaluation: 02/06/18 Time of Evaluation: 10:00 - Subjective Subjective: no fever less vomiting Objective - Vital Signs/Intake and Output Vital Signs (last 24 hours): Temp Pulse Resp BP Pulse Ox 98.2 F 74 20 100/64 98 02/06/18 15:10 02/06/18 15:10 02/06/18 15:10 02/06/18 15:10 02/06/18 15:10 Intake and Output: 02/06/18 02/06/18 06:59 18:59 Intake Total 350 Balance 350 - Medications Medications: Current Medications Al Hydrox/Mg Hydrox/Simethicone (Maalox 30 Ml) 30 ml PO Q8 PRN PRN Reason: Indigestion / Heartburn Last Admin: 01/30/18 11:54 Dose: 30 ml Chlorpromazine (Thorazine) 25 mg IM Q8H PRN PRN Reason: Hiccups Last Admin: 02/02/18 10:37 Dose: 25 mg Diltiazem HCl (Cardizem Cd) 240 mg PO DAILY [facility] Last Admin: 02/01/18 09:25 Dose: Not Given Enoxaparin Sodium (Lovenox) 40 mg SC DAILY [facility] Last Admin: 02/06/18 11:32 Dose: 40 mg Vancomycin HCl 1,000 mg/ (Sodium Chloride) 200 mls @ 133.333 mls/hr IVPB Q12H [facility]; Protocol Last Admin: 02/06/18 06:01 Dose: 133.333 mls/hr Cefepime HCl (Maxipime Iv 1 Gm Premix) 1 gm in 50 mls @ 100 mls/hr IVPB Q8H XU; Protocol Last Admin: 02/06/18 08:06 Dose: 100 mls/hr Multivitamins/Vitamin C 10 ml/Chromium/Copper/Manganese/Zinc 1 ml/ Amino Acids 1,011 mls @ 42 mls/hr IV .Q24H ONE Stop: 02/06/18 17:59 Last Admin: 02/05/18 17:32 Dose: 42 mls/hr Multivitamins/Vitamin C 10 ml/Chromium/Copper/Manganese/Zinc 1 ml/ Amino Acids 1,011 mls @ 42 mls/hr IV .Q24H ONE Stop: 02/07/18 17:59 Metoclopramide HCl (Reglan) 10 mg IVP Q6 [facility] Last Admin: 02/06/18 11:32 Dose: 10 mg Ondansetron HCl (Zofran Inj) 4 mg IVP Q6H PRN PRN Reason: Nausea/Vomiting Last Admin: 02/02/18 06:40 Dose: 4 mg Thiamine HCl (Vitamin B1 Inj) 100 mg IV DAILY [facility] Last Admin: 02/06/18 09:25 Dose: 100 mg - Labs Labs: 02/06/18 07:02 02/06/18 07:02 PT 13.7 SECONDS (9.7-12.2) H 02/01/18 18:51 INR 1.3 02/01/18 18:51 APTT 28 SECONDS (21-34) 02/01/18 18:51 - Constitutional Appears: Non-toxic, Chronically Ill - Head Exam Head Exam: NORMOCEPHALIC - Eye Exam Eye Exam: PERRL - ENT Exam ENT Exam: Mucous Membranes Dry - Neck Exam Neck Exam: absent: Lymphadenopathy - Respiratory Exam Respiratory Exam: Decreased Breath Sounds - Cardiovascular Exam Cardiovascular Exam: REGULAR RHYTHM - GI/Abdominal Exam GI & Abdominal Exam: Distended, Soft - Rectal Exam Rectal Exam: Deferred - Exam Exam: NORMAL INSPECTION - Extremities Exam Extremities Exam: absent: Pedal Edema - Back Exam Back Exam: absent: CVA tenderness (L), CVA tenderness (R) - Neurological Exam Neurological Exam: Alert, Awake, Oriented x3 Assessment and Plan (1) Paroxysmal atrial fibrillation Status: Acute (2) Seizure Status: Acute (3) Abdominal pain Status: Acute - Assessment and Plan (Free Text) Assessment: cont iv rx as ordered surgical and GI follow up
[2018-02-06] MEDS ORDERED: PPN #6 IV ONE (18:00)
--- NOTE | 2018-02-07 00:35 | PN ---
DATE: 02/06/2018 SUBJECTIVE: The patient is seen and examined at bedside. The patient offers no new complaints, tolerating p.o. feeds. Denies any new complaints. PHYSICAL EXAMINATION: GENERAL: Middle-aged male, lying in bed, in no acute distress. VITAL SIGNS: Blood pressure 116/79, pulse 72, respirations 20, temperature 97.8 degrees Fahrenheit and O2 sat 98% on room air. HEENT: Pupils equal, round, reacting to light and accommodation. Extraocular muscles intact. No icterus. No pallor. No oral thrush. No pharyngeal congestion. NECK: Supple. No JVD. LUNGS: Bilateral vesicular breath sounds. No wheezing. No rhonchi. CARDIOVASCULAR SYSTEM: S1 and S2 present, regular. ABDOMEN: Soft. Incision site healing. Bowel sounds present. No guarding. No rigidity. No rebound tenderness noted. CENTRAL NERVOUS SYSTEM: Alert, awake, and oriented x3. No focal deficits noted. EXTREMITIES: No edema. Palpable peripheral pulses. MEDICATIONS: Maalox 30 mL, Maxipime 1 gm IV every 8 hours, Thorazine 25 mg IM every 8 hours p.r.n., Cardizem 240 mg daily, Lovenox 40 mg subcu daily, Reglan 10 mg IV push every 6 hours, multivitamin, Zofran 4 mg as needed every 6 hours, thiamine 100 mg daily and vancomycin 1 gm IV every 12 hours. LABORATORY DATA: Labs from this morning; WBC 7.9, hemoglobin 11.2, hematocrit 33.5 and platelets 225. Sodium 138, potassium 3.9, chloride 102, bicarb 27, BUN 5, creatinine 0.5, glucose 104, calcium 8.8, phosphorus 3.6, magnesium 1.8. AST 17, ALT 24, alkaline phosphate 50, total protein 5.7 and albumin 2.8. ASSESSMENT AND PLAN: Middle aged male with history of chronic low back pain, status post exploratory laparotomy with right hemicolectomy, with no seizures, possible ethyl alcohol related, status post altered mental status, wound infection, intrahepatic fluid collection, gastric distention with persistent vomiting which improved, acute pancreatitis, tolerating clear liquids. Followup with Surgery. Discussed with Dr. Jose. Continue with current antibiotics as per ID. Jyothi Jeronimo MD [facility] # [id number]
[2018-02-07] MEDS: Cefepime IV 1 gm in Dextrose 1 GM/50 ML BAG IVPB SCH ×3 (00:50→17:55)
[2018-02-07 07:12] LABS: ALBUMIN 2.9 g/dL (3.5-5.0); ALT/SGPT 23 U/L (21-72); AST/SGOT 14 U/L (17-59); BLOOD UREA NITROGEN 5 mg/dL (9-20); CALCIUM 8.9 mg/dl (8.6-10.4); GFR NON-AFRICAN AMERICAN > 60
[2018-02-07 07:13] LABS: BASO % 0.6 % (0.0-2.0); EOS # 0.2 K/uL (0.0-0.7); EOS % 2.2 % (0.0-4.0); HEMOGLOBIN 11.2 g/dL (12.0-18.0); LYMPH # 1.9 K/uL (1.0-4.3); LYMPH % 23.1 % (20.0-40.0); MEAN CELL VOLUME 91.4 fL (80.0-94.0); MEAN CORPUSCULAR HEMOGLOBIN 31.4 pg (27.0-31.0); MEAN CORPUSCULAR HGB CONC 34.4 g/dL (33.0-37.0); MEAN PLATELET VOLUME 9.1 fL (7.2-11.7); MONO # 0.6 K/uL (0.0-0.8); MONO % 7.5 % (0.0-10.0); NEUT # 5.5 K/uL (1.8-7.0); NEUT % 66.6 % (50.0-75.0); RBC 3.56 Mil/uL (4.40-5.90); RED CELL DISTRIBUTION WIDTH 14.2 % (11.5-14.5); WHITE BLOOD COUNT 8.2 K/uL (4.8-10.8)
[2018-02-07] MEDS: diltiaZEM 240 mg/24 Hours CD Cap PO SCH (09:39)
[2018-02-07] MEDS: Enoxaparin 40 mg Syringe SC SCH (09:40)
[2018-02-07] MEDS: Thiamine 100 mg/ml Inj IV SCH (09:40)
--- NOTE | 2018-02-07 12:52 | CP.PCM.PN ---
Subjective - Date & Time of Evaluation Date of Evaluation: 02/07/18 Time of Evaluation: 12:51 - Subjective Subjective: Progress note dictated #[id number] Objective - Vital Signs/Intake and Output Vital Signs (last 24 hours): Temp Pulse Resp BP Pulse Ox 98.5 F 74 20 113/73 97 02/07/18 07:00 02/07/18 07:00 02/07/18 07:00 02/07/18 07:00 02/07/18 07:00 Intake and Output: 02/07/18 02/07/18 06:59 18:59 Intake Total 900 Balance 900 - Medications Medications: Current Medications Al Hydrox/Mg Hydrox/Simethicone (Maalox 30 Ml) 30 ml PO Q8 PRN PRN Reason: Indigestion / Heartburn Last Admin: 01/30/18 11:54 Dose: 30 ml Diltiazem HCl (Cardizem Cd) 240 mg PO DAILY XU Last Admin: 02/07/18 09:39 Dose: 240 mg Enoxaparin Sodium (Lovenox) 40 mg SC DAILY XU Last Admin: 02/07/18 09:40 Dose: 40 mg Vancomycin HCl 1,000 mg/ (Sodium Chloride) 200 mls @ 133.333 mls/hr IVPB Q12H XU; Protocol Last Admin: 02/07/18 06:30 Dose: 133.333 mls/hr Cefepime HCl (Maxipime Iv 1 Gm Premix) 1 gm in 50 mls @ 100 mls/hr IVPB Q8H XU; Protocol Last Admin: 02/07/18 09:41 Dose: 100 mls/hr Metoclopramide HCl (Reglan) 10 mg IVP Q6 XU Last Admin: 02/07/18 12:27 Dose: 10 mg Thiamine HCl (Vitamin B1 Inj) 100 mg IV DAILY XU Last Admin: 02/07/18 09:40 Dose: 100 mg - Labs Labs: 02/07/18 06:46 02/07/18 06:46 PT 13.7 SECONDS (9.7-12.2) H 02/01/18 18:51 INR 1.3 02/01/18 18:51 APTT 28 SECONDS (21-34) 02/01/18 18:51
--- NOTE | 2018-02-07 15:04 | CARD ---
APPROVED REPORT Date of service: 01/19/2018 EKG Measurement Heart [id number] <Conclusion> Atrial fibrillation with rapid ventricular response with premature ventricular or aberrantly conducted complexes Abnormal ECG
--- NOTE | 2018-02-07 17:13 | PN ---
DATE: 02/07/2018 SUBJECTIVE: The patient is seen and examined at bedside. The patient is feeling better, tolerating regular meals, denies any nausea or vomiting, complaining of semi-formed stools last night and this morning, requesting to be discharged. All other systems reviewed and was found to be negative. PHYSICAL EXAMINATION: GENERAL: Middle-aged male lying in bed, in no acute distress. VITAL SIGNS: Blood pressure 113/73, pulse 74, respirations 20, temperature 98.5 degrees Fahrenheit, O2 sat 97% on room air. HEENT: Pupils equal, round, reacting to light and accommodation. Extraocular muscles intact. No icterus. No pallor. No oral thrush. No pharyngeal congestion. NECK: Supple. No JVD. LUNGS: Bilateral vesicular breath sounds. No wheezing. No rhonchi. CARDIOVASCULAR SYSTEM: S1 and S2 present, regular. ABDOMEN: Soft. Bowel sounds present. No guarding. No rigidity. No rebound tenderness noted. Nontender. Surgical incision healing well with stella in place. No discharge noted. CENTRAL NERVOUS SYSTEM: Alert, awake, and oriented x3. No focal deficits noted. EXTREMITIES: No edema. Palpable peripheral pulses. MEDICATIONS: Include Maalox 30 mL as needed, Maxipime 1 g IV every 8 hours, Cardizem 240 mg p.o. daily, Lovenox 40 mg subcu daily, Reglan 10 mg IV push every 6 hours, thiamine 100 mg daily, vancomycin 1 g IV every 12 hours. LABORATORY DATA: Labs from this morning; WBC 8.2, hemoglobin 11.2, hematocrit 32.4, platelets 325. Sodium 137, potassium 4, chloride 102, bicarb 36, BUN 5, creatinine 0.5, glucose 121, calcium 8.9, total bilirubin 0.2, AST 14, ALT 23, alkaline phosphatase 47, total protein 5.8, albumin 2.9, vanco trough 9.6. 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 The patient is tolerating p.o. feeds, will follow up with the Surgery. When the patient is cleared by Surgery, we will plan discharging the patient home. Continue with current antibiotics, Cefepime and vancomycin as per Dr. Sommers. We will continue with deep venous thrombosis and gastrointestinal prophylaxis, on Reglan as per surgical recommendation. We will continue with other current therapy. Jyothi Jeronimo MD
[2018-02-08] MEDS: Cefepime IV 1 gm in Dextrose 1 GM/50 ML BAG IVPB SCH ×3 (00:10→17:25)
[2018-02-08] MEDS: Enoxaparin 40 mg Syringe SC SCH (09:15)
[2018-02-08] MEDS: diltiaZEM 240 mg/24 Hours CD Cap PO SCH (09:15)
[2018-02-08] MEDS: Thiamine 100 mg/ml Inj IV SCH (09:16)
--- NOTE | 2018-02-08 12:02 | CP.PCM.PN ---
Subjective - Date & Time of Evaluation Date of Evaluation: 02/08/18 Time of Evaluation: 07:41 - Subjective Subjective: Patient seen and examined. No acute events over night. Denies abdominal pain. No n/v. Tolerating regular diet. Remainder of abdominal stella have been removed. Objective - Vital Signs/Intake and Output Vital Signs (last 24 hours): Temp Pulse Resp BP Pulse Ox 98.0 F 71 20 123/78 98 02/08/18 07:00 02/08/18 07:00 02/08/18 07:00 02/08/18 07:00 02/08/18 07:00 Intake and Output: 02/08/18 02/08/18 06:59 18:59 Intake Total 490 Balance 490 - Medications Medications: Current Medications Al Hydrox/Mg Hydrox/Simethicone (Maalox 30 Ml) 30 ml PO Q8 PRN PRN Reason: Indigestion / Heartburn Last Admin: 01/30/18 11:54 Dose: 30 ml Diltiazem HCl (Cardizem Cd) 240 mg PO DAILY [facility] Last Admin: 02/08/18 09:15 Dose: 240 mg Enoxaparin Sodium (Lovenox) 40 mg SC DAILY XU Last Admin: 02/08/18 09:15 Dose: 40 mg Vancomycin HCl 1,000 mg/ (Sodium Chloride) 200 mls @ 133.333 mls/hr IVPB Q12H XU; Protocol Last Admin: 02/08/18 06:12 Dose: 133.333 mls/hr Cefepime HCl (Maxipime Iv 1 Gm Premix) 1 gm in 50 mls @ 100 mls/hr IVPB Q8H XU; Protocol Last Admin: 02/08/18 09:17 Dose: 100 mls/hr Metoclopramide HCl (Reglan) 10 mg IVP Q6 XU Last Admin: 02/08/18 06:15 Dose: 10 mg Nystatin (Mycostatin Cream) 0 ea TOP TID XU Thiamine HCl (Vitamin B1 Inj) 100 mg IV DAILY XU Last Admin: 02/08/18 09:16 Dose: 100 mg - Labs Labs: 02/07/18 06:46 02/07/18 06:46 PT 13.7 SECONDS (9.7-12.2) H 02/01/18 18:51 INR 1.3 09/23/18 18:51 APTT 28 SECONDS (21-34) 02/01/18 18:51 - Constitutional Appears: No Acute Distress - Head Exam Head Exam: NORMOCEPHALIC - Eye Exam Eye Exam: Normal appearance - ENT Exam ENT Exam: Mucous Membranes Moist - Respiratory Exam Respiratory Exam: NORMAL BREATHING PATTERN - GI/Abdominal Exam GI & Abdominal Exam: Soft. absent: Distended, Firm, Guarding, Rigid - Neurological Exam Neurological Exam: Alert, Awake, Oriented x3 - Psychiatric Exam Psychiatric exam: Normal Mood - Skin Skin Exam: Dry, Intact, Normal Color, Warm
[2018-02-08] MEDS: Nystatin 100,000 Units/gm Cream(15 gm) TOP SCH ×2 (14:23→17:26)
--- NOTE | 2018-02-08 15:01 | CP.PCM.PN ---
Subjective - Date & Time of Evaluation Date of Evaluation: 02/08/18 Time of Evaluation: 09:00 - Subjective Subjective: improving afeb Objective - Vital Signs/Intake and Output Vital Signs (last 24 hours): Temp Pulse Resp BP Pulse Ox 98.0 F 71 20 123/78 98 02/08/18 07:00 02/08/18 07:00 02/08/18 07:00 02/08/18 07:00 02/08/18 07:00 Intake and Output: 02/08/18 02/08/18 06:59 18:59 Intake Total 610 Balance 610 - Medications Medications: Current Medications Al Hydrox/Mg Hydrox/Simethicone (Maalox 30 Ml) 30 ml PO Q8 PRN PRN Reason: Indigestion / Heartburn Last Admin: 01/30/18 11:54 Dose: 30 ml Diltiazem HCl (Cardizem Cd) 240 mg PO DAILY XU Last Admin: 02/08/18 09:15 Dose: 240 mg Enoxaparin Sodium (Lovenox) 40 mg SC DAILY XU Last Admin: 02/08/18 09:15 Dose: 40 mg Vancomycin HCl 1,000 mg/ (Sodium Chloride) 200 mls @ 133.333 mls/hr IVPB Q12H XU; Protocol Last Admin: 02/08/18 06:12 Dose: 133.333 mls/hr Cefepime HCl (Maxipime Iv 1 Gm Premix) 1 gm in 50 mls @ 100 mls/hr IVPB Q8H XU; Protocol Last Admin: 02/08/18 09:17 Dose: 100 mls/hr Metoclopramide HCl (Reglan) 10 mg IVP Q6 XU Last Admin: 02/08/18 12:22 Dose: 10 mg Nystatin (Mycostatin Cream) 0 ea TOP TID XU Last Admin: 02/08/18 14:23 Dose: 1 oin Thiamine HCl (Vitamin B1 Inj) 100 mg IV DAILY XU Last Admin: 02/08/18 09:16 Dose: 100 mg - Labs Labs: 02/07/18 06:46 02/07/18 06:46 PT 13.7 SECONDS (9.7-12.2) H 02/01/18 18:51 INR 1.3 02/01/18 18:51 APTT 28 SECONDS (21-34) 02/01/18 18:51 - Constitutional Appears: Non-toxic, Chronically Ill - Head Exam Head Exam: NORMOCEPHALIC - Eye Exam Eye Exam: PERRL - ENT Exam ENT Exam: Mucous Membranes Dry - Neck Exam Neck Exam: absent: Lymphadenopathy - Respiratory Exam Respiratory Exam: Decreased Breath Sounds - Cardiovascular Exam Cardiovascular Exam: REGULAR RHYTHM - GI/Abdominal Exam GI & Abdominal Exam: Distended, Soft Assessment and Plan (1) Paroxysmal atrial fibrillation Status: Acute (2) Seizure Status: Acute (3) Abdominal pain Status: Acute - Assessment and Plan (Free Text) Assessment: cont rx dr ramirez to re-eval
--- NOTE | 2018-02-08 18:38 | CP.PCM.PN ---
Subjective - Date & Time of Evaluation Date of Evaluation: 02/08/18 Time of Evaluation: 18:37 - Subjective Subjective: Prpgress note dictated #[id number] Objective - Vital Signs/Intake and Output Vital Signs (last 24 hours): Temp Pulse Resp BP Pulse Ox 99 F 83 20 114/71 98 02/08/18 16:52 02/08/18 16:52 02/08/18 16:52 02/08/18 16:52 02/08/18 16:52 Intake and Output: 02/08/18 02/08/18 06:59 18:59 Intake Total 610 Balance 610 - Medications Medications: Current Medications Diltiazem HCl (Cardizem Cd) 240 mg PO DAILY XU Last Admin: 02/08/18 09:15 Dose: 240 mg Enoxaparin Sodium (Lovenox) 40 mg SC DAILY XU Last Admin: 02/08/18 09:15 Dose: 40 mg Vancomycin HCl 1,000 mg/ (Sodium Chloride) 200 mls @ 133.333 mls/hr IVPB Q12H XU; Protocol Last Admin: 02/08/18 18:33 Dose: 133.333 mls/hr Cefepime HCl (Maxipime Iv 1 Gm Premix) 1 gm in 50 mls @ 100 mls/hr IVPB Q8H XU; Protocol Last Admin: 02/08/18 17:25 Dose: 100 mls/hr Metoclopramide HCl (Reglan) 10 mg IVP Q6 XU Last Admin: 02/08/18 17:25 Dose: 10 mg Nystatin (Mycostatin Cream) 0 ea TOP TID XU Last Admin: 02/08/18 17:26 Dose: 1 oin Thiamine HCl (Vitamin B1 Inj) 100 mg IV DAILY XU Last Admin: 02/08/18 09:16 Dose: 100 mg - Labs Labs: 02/07/18 06:46 02/07/18 06:46 PT 13.7 SECONDS (9.7-12.2) H 02/01/18 18:51 INR 1.3 02/01/18 18:51 APTT 28 SECONDS (21-34) 02/01/18 18:51
--- NOTE | 2018-02-08 23:35 | PN ---
DATE: 02/08/2018 SUBJECTIVE: The patient is seen and examined at bedside. The patient started vomiting again about an hour ago, claims that he had 3 or 4 episodes which were all watery as per the patient. He thinks he may have vomited all the food that he ate. REVIEW OF SYSTEMS: Denied any nausea at the present time. Denies any headaches or dizziness. Denies any abdominal pain. Denies any other urinary complaints. Denies any leg pains or leg cramps. All other systems reviewed and were found to be negative. PHYSICAL EXAMINATION: GENERAL: A middle-aged male, lying in bed, in no acute distress. VITAL SIGNS: Blood pressure 114/71, pulse 83, respirations 20, temperature 99 degrees Fahrenheit, and O2 saturation 98% on room air. HEENT: Pupils equal, round and reactive to light and accommodation. Extraocular muscles intact. No icterus. No pallor. No oral thrush. No pharyngeal congestion. NECK: Supple. No JVD. LUNGS: Bilateral vesicular breath sounds. No wheezing. No rhonchi. CVS: S1 and S2 present and regular. ABDOMEN: Soft. Bowel sounds present. No guarding. No rigidity. No rebound tenderness noted. COMPLIANCE PARALEGAL: Alert, awake, and oriented x3. No focal deficits noted. EXTREMITIES: No edema. Palpable peripheral pulses. MEDICATIONS: Include Maxipime 1 g IV every 8 hours, Cardizem 240 mg p.o. daily, Lovenox 40 mg subcu daily, Reglan 10 mg IV push every 6 hours, nystatin cream, thiamine 100 mg IV daily, vancomycin 1000 mg IV every 12 hours. LABORATORY DATA: There are no new labs done today. 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 We will follow up with Surgery. Since the patient developed vomiting again today, we will continue with other current therapy. We will follow up with Surgery regarding further treatment and plan from surgical standpoint. Continue with deep venous thrombosis and gastrointestinal prophylaxis. Jyothi Jeronimo MD [facility] # [id number]
[2018-02-09] MEDS ORDERED: Simethicone 80 mg Chewtab PO PRN (00:19)
[2018-02-09] MEDS: Cefepime IV 1 gm in Dextrose 1 GM/50 ML BAG IVPB SCH ×3 (00:20→17:57)
[2018-02-09 07:26] LABS: BASO # 0.1 K/uL (0.0-0.2); BASO % 0.7 % (0.0-2.0); EOS # 0.1 K/uL (0.0-0.7); HEMOGLOBIN 11.6 g/dL (12.0-18.0); LYMPH # 1.7 K/uL (1.0-4.3); LYMPH % 21.1 % (20.0-40.0); MEAN CELL VOLUME 92.4 fL (80.0-94.0); MEAN CORPUSCULAR HEMOGLOBIN 31.2 pg (27.0-31.0); MEAN CORPUSCULAR HGB CONC 33.7 g/dL (33.0-37.0); MEAN PLATELET VOLUME 9.3 fL (7.2-11.7); MONO # 0.8 K/uL (0.0-0.8); MONO % 9.6 % (0.0-10.0); NEUT # 5.3 K/uL (1.8-7.0); NEUT % 67.6 % (50.0-75.0); NRBC % 0.1 % (0.0-2.0); RBC 3.7 Mil/uL (4.40-5.90); RED CELL DISTRIBUTION WIDTH 14.7 % (11.5-14.5); WHITE BLOOD COUNT 7.9 K/uL (4.8-10.8)
[2018-02-09 07:48] LABS: ALB/GLOB RATIO 1.1 (1.0-2.1); ALBUMIN 3.1 g/dL (3.5-5.0); ALT/SGPT 32 U/L (21-72); AMYLASE 91 U/L (30-110); AST/SGOT 16 U/L (17-59); BLOOD UREA NITROGEN 10 mg/dL (9-20); CALCIUM 8.9 mg/dl (8.6-10.4); GFR NON-AFRICAN AMERICAN > 60; LIPASE 251 U/L (23-300)
[2018-02-09] MEDS: Nystatin 100,000 Units/gm Cream(15 gm) TOP SCH ×3 (09:31→18:15)
[2018-02-09] MEDS: Thiamine 100 mg/ml Inj IV SCH (09:32)
[2018-02-09] MEDS: Enoxaparin 40 mg Syringe SC SCH (09:35)
[2018-02-09] MEDS: diltiaZEM 240 mg/24 Hours CD Cap PO SCH (09:35)
--- NOTE | 2018-02-09 11:15 | CP.PCM.PN ---
Subjective - Date & Time of Evaluation Date of Evaluation: 02/09/18 Time of Evaluation: 11:15 - Subjective Subjective: Progress note dictated #[id number] Objective - Vital Signs/Intake and Output Vital Signs (last 24 hours): Temp Pulse Resp BP Pulse Ox 98.8 F 88 18 100/60 98 02/09/18 09:56 02/09/18 09:56 02/09/18 09:56 02/09/18 09:56 02/09/18 09:56 - Medications Medications: Current Medications Diltiazem HCl (Cardizem Cd) 240 mg PO DAILY [facility] Last Admin: 02/09/18 09:35 Dose: Not Given Enoxaparin Sodium (Lovenox) 40 mg SC DAILY [facility] Last Admin: 02/09/18 09:35 Dose: 40 mg Vancomycin HCl 1,000 mg/ (Sodium Chloride) 200 mls @ 133.333 mls/hr IVPB Q12H XU; Protocol Last Admin: 02/09/18 06:06 Dose: 133.333 mls/hr Cefepime HCl (Maxipime Iv 1 Gm Premix) 1 gm in 50 mls @ 100 mls/hr IVPB Q8H XU; Protocol Last Admin: 02/09/18 09:31 Dose: 100 mls/hr Metoclopramide HCl (Reglan) 10 mg IVP Q6 XU Last Admin: 02/09/18 06:23 Dose: 10 mg Nystatin (Mycostatin Cream) 0 ea TOP TID XU Last Admin: 02/09/18 09:31 Dose: 1 oin Ondansetron HCl (Zofran Inj) 4 mg IVP Q6H PRN PRN Reason: nausea/vomiting Last Admin: 02/08/18 19:57 Dose: 4 mg Simethicone (Mylicon Chew Tab) 80 mg PO TID PRN PRN Reason: GI distress Thiamine HCl (Vitamin B1 Inj) 100 mg IV DAILY [facility] Last Admin: 02/09/18 09:32 Dose: 100 mg - Labs Labs: 02/09/18 07:14 02/09/18 07:14 PT 13.7 SECONDS (9.7-12.2) H 02/01/18 18:51 INR 1.3 02/01/18 18:51 APTT 28 SECONDS (21-34) 02/01/18 18:51
[2018-02-09] MEDS: Dextrose 5%/0.9% NS 1,000 ML IV SCH (12:01)
[2018-02-09 17:49] VITALS: RESP 20
[2018-02-09] MEDS ORDERED: Fat Emulsion 20% IV 250 ML IV SCH (18:00)
[2018-02-09] MEDS ORDERED: PPN#1 IV ONE (18:00)
--- NOTE | 2018-02-09 23:09 | PN ---
DATE: 02/09/2018 SUBJECTIVE: The patient was seen and examined at bedside. The patient had multiple episodes of vomiting overnight, did not have any vomiting since morning. He has been kept n.p.o. overnight. Denies any headache, dizziness. Denies any chest pain, shortness of breath, or wheezing. Denies any urinary complaints. Had bowel movement last night. Denies any abdominal pain. Feels slightly nauseous. PHYSICAL EXAMINATION: GENERAL: Middle-aged male, lying in bed, in no acute distress. VITAL SIGNS: Blood pressure 100/60, pulse 88, respirations 18, temperature 98.8 degrees Fahrenheit, O2 sats 98% on room air. HEENT: Pupils equal, round, and reacting to light and accommodation. Extraocular muscles intact. No icterus. No pallor. No oral thrush. No pharyngeal congestion. NECK: Supple. No JVD. LUNGS: Bilateral vesicular breath sounds. No wheezing. No rhonchi. CVS: S1 and S2 present, regular. ABDOMEN: Soft and nontender. Bowel sounds present. No guarding. No rigidity. No rebound tenderness noted. Uziel removed. Wound healing better. 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 No focal deficits noted. EXTREMITIES: No edema. Palpable peripheral pulses. MEDICATIONS: Include, 1. Cefepime 1 g IV every 8 hours. 2. D5 normal saline at 100 mL an hour. 3. Cardizem 240 mg p.o. daily. 4. Lovenox 40 mg subcu daily. 5. Reglan 10 mg IV push every 6 hours. 6. Multivitamins. 7. Thiamine. 8. Mylicon 80 mg p.o. t.i.d. 9. Vancomycin 1 g IV every 12 hours. LABORATORY DATA: Labs done from this morning, WBC 7.9, hemoglobin 11.6, hematocrit 34.2, platelets 205. Sodium 137, potassium 4.3, chloride 100, bicarb 26, BUN 10, creatinine 0.8, glucose 105, calcium 8.9, phosphorous 3.5, magnesium 1.8. Total bilirubin 0.4, AST 16, ALT 32, alkaline phosphatase 54, total protein 6.1, albumin 3.1, amylase 91, lipase 251. ASSESSMENT AND PLAN: Middle-aged male with history of chronic low back pain, status post exploratory laparotomy and right hemicolectomy, admitted for witnessed seizure, wound infection, paroxysmal atrial fibrillation, intrahepatic fluid collection, distended stomach with recurrent vomiting. All the radiologic workup negative for any obstruction with persistent vomiting probably secondary to gastroparesis, rule out other etiologies, I will follow up at surgery. The patient is kept n.p.o. We will restart fluids and total parenteral nutrition. Continue with current antibiotics as per Dr. Sommers. We will continue with deep venous thrombosis and gastrointestinal prophylaxis. Awaiting surgical reevaluation. We will add further recommendation as his clinical course progresses. Jyothi Jeronimo MD
[2018-02-10] MEDS: Cefepime IV 1 gm in Dextrose 1 GM/50 ML BAG IVPB SCH ×3 (00:13→17:40)
[2018-02-10] MEDS: Dextrose 5%/0.9% NS 1,000 ML IV SCH ×2 (05:20→14:51)
[2018-02-10] MEDS: diltiaZEM 240 mg/24 Hours CD Cap PO SCH (09:08)
[2018-02-10] MEDS: Enoxaparin 40 mg Syringe SC SCH (09:08)
[2018-02-10] MEDS: Nystatin 100,000 Units/gm Cream(15 gm) TOP SCH ×3 (09:10→17:44)
[2018-02-10] MEDS: Thiamine 100 mg/ml Inj IV SCH (09:23)
--- NOTE | 2018-02-10 10:07 | CP.PCM.PN ---
Subjective - Date & Time of Evaluation Date of Evaluation: 02/10/18 Time of Evaluation: 06:40 - Subjective Subjective: General Surgery Pt seen and examined. No new complaints at this time, remains NPO. No new nausea or emesis. On PPN. Objective - Vital Signs/Intake and Output Vital Signs (last 24 hours): Temp Pulse Resp BP Pulse Ox 98.1 F 97 H 20 115/73 97 02/10/18 07:00 02/10/18 07:00 02/10/18 07:00 02/10/18 07:00 02/10/18 07:00 - Medications Medications: Current Medications Diltiazem HCl (Cardizem Cd) 240 mg PO DAILY [facility] Last Admin: 02/10/18 09:08 Dose: 240 mg Enoxaparin Sodium (Lovenox) 40 mg SC DAILY [facility] Last Admin: 02/10/18 09:08 Dose: 40 mg Vancomycin HCl 1,000 mg/ (Sodium Chloride) 200 mls @ 133.333 mls/hr IVPB Q12H XU; Protocol Last Admin: 02/10/18 06:13 Dose: 133.333 mls/hr Cefepime HCl (Maxipime Iv 1 Gm Premix) 1 gm in 50 mls @ 100 mls/hr IVPB Q8H XU; Protocol Last Admin: 02/10/18 09:23 Dose: 100 mls/hr Dextrose/Sodium Chloride (Dextrose 5%/0.9% Ns 1000 Ml) 1,000 mls @ 100 mls/hr IV .Q10H XU Last Admin: 02/10/18 05:20 Dose: 100 mls/hr Multivitamins/Vitamin C 10 ml/Chromium/Copper/Manganese/Seleni/Zn 1 ml/ Amino Acids 1,011 mls @ 42 mls/hr IV .Q24H ONE Stop: 02/10/18 17:59 Last Admin: 02/09/18 17:43 Dose: 42 mls/hr Fat Emulsion Intravenous (Intralipid 20%) 250 mls @ 42 mls/hr IV QOD@1800 XU Stop: 02/15/18 18:01 Last Admin: 02/09/18 17:44 Dose: 42 mls/hr Metoclopramide HCl (Reglan) 10 mg IVP Q6 [facility] Last Admin: 02/10/18 06:13 Dose: 10 mg Nystatin (Mycostatin Cream) 0 ea TOP TID [facility] Last Admin: 02/10/18 09:10 Dose: 1 oin Ondansetron HCl (Zofran Inj) 4 mg IVP Q6H PRN PRN Reason: nausea/vomiting Last Admin: 02/08/18 19:57 Dose: 4 mg Simethicone (Mylicon Chew Tab) 80 mg PO TID PRN PRN Reason: GI distress Thiamine HCl (Vitamin B1 Inj) 100 mg IV DAILY [facility] Last Admin: 02/10/18 09:23 Dose: 100 mg - Labs Labs: 02/09/18 07:14 02/09/18 07:14 PT 13.7 SECONDS (9.7-12.2) H 02/01/18 18:51 INR 1.3 02/01/18 18:51 APTT 28 SECONDS (21-34) 02/01/18 18:51 - Constitutional Appears: Non-toxic, No Acute Distress - Head Exam Head Exam: ATRAUMATIC, NORMOCEPHALIC - Eye Exam Eye Exam: EOMI. absent: Scleral icterus - Respiratory Exam Respiratory Exam: NORMAL BREATHING PATTERN. absent: Respiratory Distress - Cardiovascular Exam Cardiovascular Exam: RRR, +S1, +S2 - GI/Abdominal Exam GI & Abdominal Exam: Soft. absent: Distended, Firm, Guarding, Rigid, Tenderness, Rebound - Neurological Exam Neurological Exam: Alert, Awake - Skin Skin Exam: Dry, Warm Assessment and Plan - Assessment and Plan (Free Text) Assessment: 62M w/ pancreatitis- resolved, continues to have emesis with anything more than CLD Plan: May need further intervention since he was unable to tolerate soft diet. Will discuss with spouse. Will D/W Dr. Arago. Malik PGY4
--- NOTE | 2018-02-10 10:27 | CP.PCM.PN ---
Subjective - Date & Time of Evaluation Date of Evaluation: 02/10/18 Time of Evaluation: 10:26 - Subjective Subjective: Progress note dictated #[id number] Objective - Vital Signs/Intake and Output Vital Signs (last 24 hours): Temp Pulse Resp BP Pulse Ox 98.1 F 97 H 20 115/73 97 02/10/18 07:00 02/10/18 07:00 02/10/18 07:00 02/10/18 07:00 02/10/18 07:00 - Medications Medications: Current Medications Diltiazem HCl (Cardizem Cd) 240 mg PO DAILY [facility] Last Admin: 02/10/18 09:08 Dose: 240 mg Enoxaparin Sodium (Lovenox) 40 mg SC DAILY [facility] Last Admin: 02/10/18 09:08 Dose: 40 mg Vancomycin HCl 1,000 mg/ (Sodium Chloride) 200 mls @ 133.333 mls/hr IVPB Q12H XU; Protocol Last Admin: 02/10/18 06:13 Dose: 133.333 mls/hr Cefepime HCl (Maxipime Iv 1 Gm Premix) 1 gm in 50 mls @ 100 mls/hr IVPB Q8H XU; Protocol Last Admin: 02/10/18 09:23 Dose: 100 mls/hr Dextrose/Sodium Chloride (Dextrose 5%/0.9% Ns 1000 Ml) 1,000 mls @ 100 mls/hr IV .Q10H [facility] Last Admin: 02/10/18 05:20 Dose: 100 mls/hr Multivitamins/Vitamin C 10 ml/Chromium/Copper/Manganese/Seleni/Zn 1 ml/ Amino Acids 1,011 mls @ 42 mls/hr IV .Q24H ONE Stop: 02/10/18 17:59 Last Admin: 02/09/18 17:43 Dose: 42 mls/hr Fat Emulsion Intravenous (Intralipid 20%) 250 mls @ 42 mls/hr IV QOD@1800 XU Stop: 02/15/18 18:01 Last Admin: 02/09/18 17:44 Dose: 42 mls/hr Metoclopramide HCl (Reglan) 10 mg IVP Q6 [facility] Last Admin: 02/10/18 06:13 Dose: 10 mg Nystatin (Mycostatin Cream) 0 ea TOP TID XU Last Admin: 02/10/18 09:10 Dose: 1 oin Ondansetron HCl (Zofran Inj) 4 mg IVP Q6H PRN PRN Reason: nausea/vomiting Last Admin: 02/08/18 19:57 Dose: 4 mg Simethicone (Mylicon Chew Tab) 80 mg PO TID PRN PRN Reason: GI distress Thiamine HCl (Vitamin B1 Inj) 100 mg IV DAILY [facility] Last Admin: 02/10/18 09:23 Dose: 100 mg - Labs Labs: 02/09/18 07:14 02/09/18 07:14 PT 13.7 SECONDS (9.7-12.2) H 02/01/18 18:51 INR 1.3 02/01/18 18:51 APTT 28 SECONDS (21-34) 02/01/18 18:51
--- NOTE | 2018-02-10 12:54 | CP.PCM.PN ---
Subjective - Date & Time of Evaluation Date of Evaluation: 02/10/18 Time of Evaluation: 07:00 - Subjective Subjective: No new complaints at this time, remains NPO. No new nausea or emesis. On PPN. Objective - Vital Signs/Intake and Output Vital Signs (last 24 hours): Temp Pulse Resp BP Pulse Ox 98.1 F 69 20 115/73 97 02/10/18 07:00 02/10/18 07:15 02/10/18 07:00 02/10/18 07:00 02/10/18 07:00 - Medications Medications: Current Medications Diltiazem HCl (Cardizem Cd) 240 mg PO DAILY [facility] Last Admin: 02/10/18 09:08 Dose: 240 mg Enoxaparin Sodium (Lovenox) 40 mg SC DAILY [facility] Last Admin: 02/10/18 09:08 Dose: 40 mg Vancomycin HCl 1,000 mg/ (Sodium Chloride) 200 mls @ 133.333 mls/hr IVPB Q12H XU; Protocol Last Admin: 02/10/18 06:13 Dose: 133.333 mls/hr Cefepime HCl (Maxipime Iv 1 Gm Premix) 1 gm in 50 mls @ 100 mls/hr IVPB Q8H XU; Protocol Last Admin: 02/10/18 09:23 Dose: 100 mls/hr Multivitamins/Vitamin C 10 ml/Chromium/Copper/Manganese/Seleni/Zn 1 ml/ Amino Acids 1,011 mls @ 42 mls/hr IV .Q24H ONE Stop: 02/10/18 17:59 Last Admin: 02/09/18 17:43 Dose: 42 mls/hr Fat Emulsion Intravenous (Intralipid 20%) 250 mls @ 42 mls/hr IV QOD@1800 XU Stop: 02/15/18 18:01 Last Admin: 02/09/18 17:44 Dose: 42 mls/hr Multivitamins/Vitamin C 10 ml/Chromium/Copper/Manganese/Seleni/Zn 1 ml/ Amino Acids 1,011 mls @ 42 mls/hr IV .Q24H ONE Stop: 02/11/18 17:59 Dextrose/Sodium Chloride (Dextrose 5%/0.9% Ns 1000 Ml) 1,000 mls @ 50 mls/hr IV .Q20H XU Metoclopramide HCl (Reglan) 10 mg IVP Q6 [facility] Last Admin: 02/10/18 06:13 Dose: 10 mg Nystatin (Mycostatin Cream) 0 ea TOP TID [facility] Last Admin: 02/10/18 09:10 Dose: 1 oin Ondansetron HCl (Zofran Inj) 4 mg IVP Q6H PRN PRN Reason: nausea/vomiting Last Admin: 02/08/18 19:57 Dose: 4 mg Simethicone (Mylicon Chew Tab) 80 mg PO TID PRN PRN Reason: GI distress Thiamine HCl (Vitamin B1 Inj) 100 mg IV DAILY [facility] Last Admin: 02/10/18 09:23 Dose: 100 mg - Labs Labs: 02/09/18 07:14 02/09/18 07:14 PT 13.7 SECONDS (9.7-12.2) H 02/01/18 18:51 INR 1.3 02/01/18 18:51 APTT 28 SECONDS (21-34) 02/01/18 18:51 - Constitutional Appears: Non-toxic, Chronically Ill - Head Exam Head Exam: NORMOCEPHALIC - Eye Exam Eye Exam: PERRL - ENT Exam ENT Exam: Mucous Membranes Dry - Neck Exam Neck Exam: absent: Lymphadenopathy - Respiratory Exam Respiratory Exam: Decreased Breath Sounds - Cardiovascular Exam Cardiovascular Exam: REGULAR RHYTHM - GI/Abdominal Exam GI & Abdominal Exam: Distended - Rectal Exam Rectal Exam: Deferred - Exam Exam: NORMAL INSPECTION - Extremities Exam Extremities Exam: absent: Pedal Edema - Back Exam Back Exam: absent: CVA tenderness (L), CVA tenderness (R) Assessment and Plan (1) Paroxysmal atrial fibrillation Status: Acute (2) Seizure Status: Acute (3) Abdominal pain Status: Acute - Assessment and Plan (Free Text) Assessment: will renew iv antibiotics
--- NOTE | 2018-02-10 15:06 | PN ---
DATE: 02/10/2018 SUBJECTIVE: The patient is seen and examined at bedside. The patient offers no new complaints. Denies any vomiting or nausea since yesterday. He is kept n.p.o., abdominal pain is less. Denies any headache, dizziness. Denies any chest pain, shortness of breath, wheezing. Denies any other neurologic symptoms. All other systems reviewed and were found to be negative. PHYSICAL EXAMINATION: GENERAL: Middle-aged male, lying in bed, in no acute distress. VITAL SIGNS: Blood pressure 115/73, pulse 97, respiration 20, temperature 98.1 degrees Fahrenheit, O2 sat 97% on room air. HEENT: Pupils equal, round, and reacting to light and accommodation. Extraocular muscles intact. No icterus. No pallor. No oral thrush. Dry mucous membrane. NECK: Supple. No JVD. LUNGS: Bilateral vesicular breath sounds. No wheezing. No rhonchi. CVS: S1 and S2 present, regular. ABDOMEN: Soft and nontender. Bowel sounds present. No guarding. No rigidity. No rebound tenderness noted. Surgical incision heals better. No oozing noted. 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 No focal deficits noted. EXTREMITIES: No edema. Palpable peripheral pulses. MEDICATIONS: Include Maxipime 1 g IV every 8 hours, D5 normal saline 100 mL an hour, Cardizem 240 mg daily, Lovenox 40 mg subcu daily, fat emulsion, Reglan 10 mg IV push every 6 hours PPN, nystatin cream, Zofran 4 mg IV push every 6 hours p.r.n., Mylicon 80 mg p.o. three times a day, Thiamine 100 mg daily, vancomycin 1 g IV every 12 hours. LABORATORY DATA: There are no new labs. 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 Currently, the patient is n.p.o., without any symptoms, awaiting for surgical evaluation, left message with the Surgery. We will continue with current antibiotics, cefepime and vancomycin as per Infectious Disease. Continue with Reglan and simethicone. We will continue with deep venous thrombosis and gastrointestinal prophylaxis. We will follow up with Surgery regarding recurrent vomiting and further management from surgical standpoint. Jyothi Jeronimo MD
[2018-02-10] MEDS ORDERED: PPN IV ONE (18:00)
[2018-02-11] MEDS: Cefepime IV 1 gm in Dextrose 1 GM/50 ML BAG IVPB SCH ×2 (00:21→10:15)
[2018-02-11] MEDS: Dextrose 5%/0.9% NS 1,000 ML IV SCH (00:22)
[2018-02-11 00:57] VITALS: O2SAT 97
[2018-02-11 06:52] LABS: HEMOGLOBIN 11.1 g/dL (12.0-18.0); MEAN CELL VOLUME 91.8 fL (80.0-94.0); MEAN CORPUSCULAR HEMOGLOBIN 31.4 pg (27.0-31.0); MEAN CORPUSCULAR HGB CONC 34.2 g/dL (33.0-37.0); MEAN PLATELET VOLUME 9.4 fL (7.2-11.7); RBC 3.54 Mil/uL (4.40-5.90); RED CELL DISTRIBUTION WIDTH 14.2 % (11.5-14.5); WHITE BLOOD COUNT 7.7 K/uL (4.8-10.8)
[2018-02-11 07:45] LABS: BLOOD UREA NITROGEN 8 mg/dL (9-20); CALCIUM 8.5 mg/dl (8.6-10.4); GFR NON-AFRICAN AMERICAN > 60
[2018-02-11 08:00] VITALS: BP 100/59; PULSE 61; TEMP 98
[2018-02-11] MEDS: Enoxaparin 40 mg Syringe SC SCH (10:15)
[2018-02-11] MEDS: Nystatin 100,000 Units/gm Cream(15 gm) TOP SCH (10:34)
[2018-02-11] MEDS: Thiamine 100 mg/ml Inj IV SCH (10:35)
[2018-02-11] MEDS: diltiaZEM 240 mg/24 Hours CD Cap PO SCH (10:35)
--- NOTE | 2018-02-11 10:36 | CP.PCM.PN ---
Subjective - Date & Time of Evaluation Date of Evaluation: 02/11/18 Time of Evaluation: 10:36 - Subjective Subjective: Progress note dictated #[id number] discharge summary dictated #[id number] Objective - Vital Signs/Intake and Output Vital Signs (last 24 hours): Temp Pulse Resp BP Pulse Ox 98.0 F 61 20 100/59 L 97 02/11/18 07:00 02/11/18 07:00 02/11/18 07:00 02/11/18 07:00 02/11/18 07:00 Intake and Output: 02/11/18 02/11/18 06:59 18:59 Output Total 750 Balance -750 - Medications Medications: Current Medications Diltiazem HCl (Cardizem Cd) 240 mg PO DAILY [facility] Last Admin: 02/10/18 09:08 Dose: 240 mg Enoxaparin Sodium (Lovenox) 40 mg SC DAILY XU Last Admin: 02/10/18 09:08 Dose: 40 mg Vancomycin HCl 1,000 mg/ (Sodium Chloride) 200 mls @ 133.333 mls/hr IVPB Q12H XU; Protocol Last Admin: 02/11/18 06:05 Dose: 133.333 mls/hr Cefepime HCl (Maxipime Iv 1 Gm Premix) 1 gm in 50 mls @ 100 mls/hr IVPB Q8H XU; Protocol Last Admin: 02/11/18 00:21 Dose: 100 mls/hr Fat Emulsion Intravenous (Intralipid 20%) 250 mls @ 42 mls/hr IV QOD@1800 XU Stop: 02/15/18 18:01 Last Admin: 02/09/18 17:44 Dose: 42 mls/hr Multivitamins/Vitamin C 10 ml/Chromium/Copper/Manganese/Seleni/Zn 1 ml/ Amino Acids 1,011 mls @ 42 mls/hr IV .Q24H ONE Stop: 02/11/18 17:59 Last Admin: 02/10/18 17:51 Dose: 42 mls/hr Dextrose/Sodium Chloride (Dextrose 5%/0.9% Ns 1000 Ml) 1,000 mls @ 50 mls/hr IV .Q20H XU Last Admin: 02/11/18 00:22 Dose: 50 mls/hr Metoclopramide HCl (Reglan) 10 mg IVP Q6 XU Last Admin: 02/11/18 06:07 Dose: 10 mg Nystatin (Mycostatin Cream) 0 ea TOP TID [facility] Last Admin: 02/10/18 17:44 Dose: 1 oin Ondansetron HCl (Zofran Inj) 4 mg IVP Q6H PRN PRN Reason: nausea/vomiting Last Admin: 02/08/18 19:57 Dose: 4 mg Simethicone (Mylicon Chew Tab) 80 mg PO TID PRN PRN Reason: GI distress Thiamine HCl (Vitamin B1 Inj) 100 mg IV DAILY [facility] Last Admin: 02/10/18 09:23 Dose: 100 mg - Labs Labs: 02/11/18 06:40 02/11/18 06:40 PT 13.7 SECONDS (9.7-12.2) H 02/01/18 18:51 INR 1.3 02/01/18 18:51 APTT 28 SECONDS (21-34) 02/01/18 18:51
--- NOTE | 2018-02-11 14:12 | CP.PCM.PN ---
Subjective - Date & Time of Evaluation Date of Evaluation: 02/11/18 Time of Evaluation: 11:00 - Subjective Subjective: General surgery progress note for Dr. Jose Late entry Patient seen and exmained at bedside this AM. No adverse events overnight. Patient denies any pain and states that he is going to leave AMA and does not want any procedures. Discussed at length the pros and cons of leaving AMA without demonstrating adequate PO intake tolerance, and patient states he understands the risks of going home but is choosing to go anyways. Discussed at length warning signs such as fevers, chills, abdominal pain, severe nausea and vomiting, SOB, or chest pain and patient and patient's expressed understanding of the concerning symptoms. Objective - Vital Signs/Intake and Output Vital Signs (last 24 hours): Temp Pulse Resp BP Pulse Ox 98.0 F 61 20 100/59 L 97 02/11/18 07:00 02/11/18 07:00 02/11/18 07:00 02/11/18 07:00 02/11/18 07:00 Intake and Output: 02/11/18 02/11/18 06:59 18:59 Output Total 750 Balance -750 - Medications Medications: Current Medications Diltiazem HCl (Cardizem Cd) 240 mg PO DAILY XU Last Admin: 02/11/18 10:35 Dose: 240 mg Enoxaparin Sodium (Lovenox) 40 mg SC DAILY XU Last Admin: 02/11/18 10:15 Dose: 40 mg Vancomycin HCl 1,000 mg/ (Sodium Chloride) 200 mls @ 133.333 mls/hr IVPB Q12H XU; Protocol Last Admin: 02/11/18 06:05 Dose: 133.333 mls/hr Cefepime HCl (Maxipime Iv 1 Gm Premix) 1 gm in 50 mls @ 100 mls/hr IVPB Q8H XU; Protocol Last Admin: 02/11/18 10:15 Dose: 100 mls/hr Fat Emulsion Intravenous (Intralipid 20%) 250 mls @ 42 mls/hr IV QOD@1800 XU Stop: 02/15/18 18:01 Last Admin: 02/09/18 17:44 Dose: 42 mls/hr Multivitamins/Vitamin C 10 ml/Chromium/Copper/Manganese/Seleni/Zn 1 ml/ Amino Acids 1,011 mls @ 42 mls/hr IV .Q24H ONE Stop: 02/11/18 17:59 Last Admin: 02/10/18 17:51 Dose: 42 mls/hr Dextrose/Sodium Chloride (Dextrose 5%/0.9% Ns 1000 Ml) 1,000 mls @ 50 mls/hr IV .Q20H [facility] Last Admin: 02/11/18 00:22 Dose: 50 mls/hr Multivitamins/Vitamin C 10 ml/Chromium/Copper/Manganese/Zinc 1 ml/ Amino Acids 1,011 mls @ 42 mls/hr IV .Q24H ONE Stop: 02/12/18 17:59 Metoclopramide HCl (Reglan) 10 mg IVP Q6 [facility] Last Admin: 02/11/18 06:07 Dose: 10 mg Nystatin (Mycostatin Cream) 0 ea TOP TID [facility] Last Admin: 02/11/18 10:34 Dose: 1 oin Ondansetron HCl (Zofran Inj) 4 mg IVP Q6H PRN PRN Reason: nausea/vomiting Last Admin: 02/08/18 19:57 Dose: 4 mg Simethicone (Mylicon Chew Tab) 80 mg PO TID PRN PRN Reason: GI distress Thiamine HCl (Vitamin B1 Inj) 100 mg IV DAILY [facility] Last Admin: 02/11/18 10:35 Dose: 100 mg - Labs Labs: 02/11/18 06:40 02/11/18 06:40 PT 13.7 SECONDS (9.7-12.2) H 02/01/18 18:51 INR 1.3 02/01/18 18:51 APTT 28 SECONDS (21-34) 02/01/18 18:51 - Constitutional Appears: Well, Non-toxic, No Acute Distress - Head Exam Head Exam: ATRAUMATIC, NORMOCEPHALIC - Eye Exam Eye Exam: Normal appearance. absent: Conjunctival injection, Scleral icterus - ENT Exam ENT Exam: Mucous Membranes Moist, Normal Oropharynx - Respiratory Exam Respiratory Exam: NORMAL BREATHING PATTERN. absent: Accessory Muscle Use, Respiratory Distress - GI/Abdominal Exam GI & Abdominal Exam: Soft. absent: Distended - Neurological Exam Neurological Exam: Alert, Awake, Oriented x3 - Psychiatric Exam Psychiatric exam: Normal Affect, Normal Mood - Skin Skin Exam: Dry, Normal Color, Warm Assessment and Plan - Assessment and Plan (Free Text) Assessment: 62M with pancreatitis and intra-abdominal abscess with PO intake intolerance Plan: Patient is signing out AMA despite explanations of risks of leaving before regular diet tolerated. Explained at length that the concerning symptoms to return to the ER. Patient and patient's expressed understanding of the risks and signs of complications. Encouraged patient to return to ER for any further complaints or concerns
--- NOTE | 2018-02-11 15:16 | CP.PCM.PN ---
Subjective - Date & Time of Evaluation Date of Evaluation: 02/11/18 Time of Evaluation: 09:00 - Subjective Subjective: afeb on iv antibiotics Objective - Vital Signs/Intake and Output Vital Signs (last 24 hours): Temp Pulse Resp BP Pulse Ox 98.0 F 61 20 100/59 L 97 02/11/18 07:00 02/11/18 07:00 02/11/18 07:00 02/11/18 07:00 02/11/18 07:00 Intake and Output: 02/11/18 02/11/18 06:59 18:59 Output Total 750 Balance -750 - Labs Labs: 02/11/18 06:40 02/11/18 06:40 PT 13.7 SECONDS (9.7-12.2) H 02/01/18 18:51 INR 1.3 02/01/18 18:51 APTT 28 SECONDS (21-34) 02/01/18 18:51 - Constitutional Appears: Non-toxic, Cachectic, Chronically Ill - Head Exam Head Exam: NORMOCEPHALIC - Eye Exam Eye Exam: PERRL - ENT Exam ENT Exam: Mucous Membranes Dry - Neck Exam Neck Exam: absent: Lymphadenopathy - Respiratory Exam Respiratory Exam: Decreased Breath Sounds - Cardiovascular Exam Cardiovascular Exam: REGULAR RHYTHM - GI/Abdominal Exam GI & Abdominal Exam: Distended, Soft Additional comments: wound healing - Rectal Exam Rectal Exam: Deferred - Exam Exam: NORMAL INSPECTION - Extremities Exam Extremities Exam: absent: Pedal Edema - Back Exam Back Exam: absent: CVA tenderness (L), CVA tenderness (R) Assessment and Plan (1) Paroxysmal atrial fibrillation Status: Acute (2) Seizure Status: Acute (3) Abdominal pain Status: Acute - Assessment and Plan (Free Text) Assessment: will check vanco level in am
[2018-02-11] MEDS ORDERED: PPN #3 IV ONE (18:00)
--- NOTE | 2018-02-11 18:12 | PN ---
DATE: 02/11/2018 SUBJECTIVE: The patient was seen and examined at bedside. The patient is still kept n.p.o. Awaiting for surgical evaluation. The patient wants to know anything is going to be done or not. Denies any headache or dizziness. Denies any chest pain. Denies any shortness of breath. Denies any nausea or vomiting. Since he has been kept n.p.o., denies any abdominal pain, diarrhea or constipation. All other systems reviewed and were found to be negative. PHYSICAL EXAMINATION: GENERAL: Middle-aged male, lying in bed, in no acute distress. VITAL SIGNS: Blood pressure 100/59, pulse 61, respiration 20, temperature 98 degrees Fahrenheit, O2 sat 97% on room air. HEENT: Pupils equal, round, and reacting to light and accommodation. Extraocular muscles intact. No icterus. No pallor. No oral thrush. No pharyngeal congestion. NECK: Supple. No JVD. LUNGS: Bilateral vesicular breath sounds. No wheezing. No rhonchi. CVS: S1 and S2 present, regular. ABDOMEN: Soft and nontender. Bowel sounds present. No guarding. No rigidity. No rebound tenderness noted. Surgical incision healed well. FREIGHT SERVICE INSPECTOR: Alert, awake, and oriented x3. No focal deficits noted. EXTREMITIES: No edema. Palpable peripheral pulses. MEDICATIONS: Include cefepime 1 g IV every 8 hours, D5 normal saline at 50 mL an hour, Cardizem 240 mg p.o. daily, Lovenox 40 mg daily fat emulsion, metoclopramide 10 mg IV push every 6 hours, PPN, Zofran 4 mg IV push every 6 hours p.r.n., Mylicon 80 mg p.o. three times a day, thiamine 100 mg daily, vancomycin 1 g IV every 12 hours. LABORATORY DATA: Labs done from this morning, WBC 7.7, hemoglobin 11.1, hematocrit 32.5, platelets 202. Sodium 136, potassium 3.8, chloride 104, bicarb 23, BUN 8, creatinine 0.5, glucose 115, calcium 8.5, magnesium 1.9. 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 The patient is generally kept n.p.o. since Friday. Discussed with Dr. Jose who will be evaluating the patient and may his recommendations based on his evaluation. Awaiting for his evaluation. Discussed with the patient at length, clarified all his questions and concerns. We will continue with n.p.o. Continue with PPN. Continue with current antibiotics as per Infectious Disease. We will continue with deep venous thrombosis and gastrointestinal prophylaxis. Jyothi Jeronimo MD
--- NOTE | 2018-02-17 10:46 | DS ---
DISCHARGE DIAGNOSES: Wound infection with multiple organisms, intrahepatic fluid collection, status post acute pancreatitis, status post electrolyte imbalance, status post detention IV antibiotics. The patient underwent hemicolectomy and exploratory laparotomy at [facility] on 01/12/2018, status post witnessed seizure, possible alcohol withdrawal, recurrent nausea and vomiting, unable to tolerate p.o. without having vomiting, history of chronic low back pain, status post small bowel series not revealing any obstruction, but with persistent gastric distention. HISTORY OF PRESENT ILLNESS: The patient is a 62-year-old male with past medical history of chronic low pain, who gets multiple pain medications from Dr. Avalos who underwent exploratory laparotomy and right hemicolectomy at [facility], who signed out against medical advice from the hospital two days after, admitted to [facility] for witnessed seizure while he was waiting at Dr. Avalos's office for pain medication, and the patient was admitted for further evaluation. On the day of discharge, the patient denied any headache or dizziness. Denied any chest pain, shortness of breath, or wheezing. Denies any nausea or vomiting, but the patient was kept n.p.o., on IV fluids, and TPN. Denied any abdominal pain, diarrhea, or constipation. Denied any urinary complaints. Denied any leg pains or leg cramps. Denied any other neurologic symptoms. All other systems reviewed and were found to be negative. PHYSICAL EXAMINATION: GENERAL: A middle-aged male, lying in bed, in no acute distress. VITAL SIGNS: Blood pressure 100/59, pulse 61, respirations 20, temperature 98 degrees Fahrenheit, and O2 sats 97% on room air. HEENT: Pupils equal, round, and reacting to light and accommodation. Extraocular muscles intact. No icterus. No pallor. No oral thrush. No pharyngeal congestion. NECK: Supple. No JVD. LUNGS: Bilateral vesicular breath sounds. No wheezing. No rhonchi. CARDIOVASCULAR SYSTEM: S1 and S2 present and regular. ABDOMEN: Soft, nontender. Bowel sounds present. No guarding, no rigidity, no rebound tenderness noted. Surgical incision healed better. No oozing or discharge noted. CENTRAL NERVOUS SYSTEM: Alert, awake, oriented x3. No focal deficits noted. EXTREMITIES: No edema. Palpable peripheral pulses. LABORATORY DATA: Labs done on 02/11/2018: WBC 10.7, hemoglobin 11.1, hematocrit 32.5, platelets 202. Sodium 136, potassium 3.8, chloride 104, bicarb 23, BUN 8, creatinine 0.5, and glucose 115. Calcium 8.5, phospholipids 105, lipase 251, amylase 91. Wound cultures show E. coli, coag-negative Staphylococcus, Jo albicans. HOSPITAL COURSE: The patient was admitted to telemetry for witnessed seizure. The patient was put on the neurological checks, evaluated by Neurology, and was under the impression secondary to alcohol-related seizure. The patient was not started on any anti-seizure medication. The patient was evaluated by Psychiatry, cleared psychiatrically. Later, the patient had surgical wound infection, purulent discharge was noted for which the patient was started on IV antibiotics, evaluated by Surgery, ID. There was recurrent purulent discharge from the surgical sites. The patient underwent multiple CT scans which showed intrahepatic fluid collection, acute pancreatitis, distended stomach. Surgery did not want to proceed with any further intervention, instead wanted to continue with conservative management of IV antibiotics. The patient was evaluated by GI. As the patient was otherwise not recommended by GI or Surgery any further intervention, the patient was about to be transferred to subacute rehab at which point, the patient started vomiting and the patient was kept n.p.o., and CAT scan showed gastric distention. Surgical residents were not able to do NG tube insertion after multiple attempts. The patient was evaluated by ENT. There was no obstruction. The patient underwent esophagogram and barium swallow with small bowel series. All the radiologic workup was negative for any obstruction, but the patient persistently had gastric distention. After four days of n.p.o., the patient was started on liquids and advanced to solids when the patient tolerated. When the patient was about to be discharged, the patient developed persistent vomiting again. So, the patient was kept n.p.o. again. Surgery reevaluated, was waiting for further surgical management. The patient's white count improved. Wound healed well, and the patient was evaluated by Surgery. The patient instead decided to go against medical advise as nothing is being done as per the patient and claims that he cannot be kept n.p.o. for so long time. After prolonged discussion, I explained all the pros and cons of leaving against the medical advice. The patient understood the consequences of going home against medical advise, and the patient decided to go home against medical advice as the patient is alert, awake, oriented x3 and hemodynamically otherwise stable, and understands the consequences of going home against medical advice. The patient was discharged home against medical advice. Advised the patient to follow up with PMD and the Surgery as outpatient. His hospital course was complicated by one episode of atrial fibrillation, and the patient converted back to normal sinus rhythm. The patient was evaluated by Cardiology. The patient was started on Cardizem drip initially, later it was switched to Cardizem p.o. The patient remained in sinus rhythm, was on Cardizem. Jyothi Jeronimo MD
== END 2018-02-11 15:04 | disposition home or self-care (01) | DRG 100 ==
LOC: C.ER 17:30 → C.6T 20:51
PROVIDERS: ADMIT Internal Medicine; ATTEND Internal Medicine
PROC: 02HV33Z Insertion of Infusion Device into Superior Vena Cava, Percutaneous Approach (ICD-10-PCS; 2018-02-02)
PROC: 3E0336Z Introduction of Nutritional Substance into Peripheral Vein, Percutaneous Approach (ICD-10-PCS; 2018-02-02)
PROC: B548ZZA Ultrasonography of Superior Vena Cava, Guidance (ICD-10-PCS; 2018-02-02)
PROC: 0CJS8ZZ Inspection of Larynx, Via Natural or Artificial Opening Endoscopic (ICD-10-PCS; principal; 2018-02-03)
DX: G40.509 Epileptic seizures related to external causes, not intractable, without status epilepticus (principal); K85.90 Acute pancreatitis without necrosis or infection, unspecified; K65.1 Peritoneal abscess; F10.239 Alcohol dependence with withdrawal, unspecified; F11.20 Opioid dependence, uncomplicated; K86.3 Pseudocyst of pancreas; T81.41XA Infection following a procedure, superficial incisional surgical site, initial encounter; R56.9 Unspecified convulsions; E87.6 Hypokalemia; I10 Essential (primary) hypertension; I48.0 Paroxysmal atrial fibrillation; F32.9 Major depressive disorder, single episode, unspecified; F22 Delusional disorders; F12.20 Cannabis dependence, uncomplicated; Z87.891 Personal history of nicotine dependence; B96.20 Unspecified Escherichia coli [E. coli] as the cause of diseases classified elsewhere; R13.10 Dysphagia, unspecified; Z53.20 Procedure and treatment not carried out because of patient's decision for unspecified reasons; G89.29 Other chronic pain; M54.5 Low back pain; J34.2 Deviated nasal septum; K31.84 Gastroparesis

== ENCOUNTER 2018-06-12 07:41 | Outpatient (CLI) | payer MEDICARE | END 2018-06-12 07:42 | disposition home or self-care (01) | LOC: C.MRIC 07:42 | DX: C80.1 Malignant (primary) neoplasm, unspecified (principal); M24.811 Other specific joint derangements of right shoulder, not elsewhere classified; M24.812 Other specific joint derangements of left shoulder, not elsewhere classified; M23.92 Unspecified internal derangement of left knee; M23.91 Unspecified internal derangement of right knee ==

== ENCOUNTER 2018-06-25 08:17 | Outpatient (CLI) | payer MEDICARE | END 2018-06-25 08:18 | disposition home or self-care (01) | LOC: C.USIC 08:17 ==